=== PATIENT | female | born 1945 | race Caucasian/White ===

== ENCOUNTER 2023-02-21 13:26 | Outpatient (CLI) | payer MEDICARE, SELFPAY ==
[2023-02-21 14:26] LABS: Basophils Percent Auto 1.6 % (0.0-3.0); Eosinophils Percent Auto 2.2 % (0.0-7.0); Hematocrit 37.8 % (33.0-51.0); Hemoglobin* 12.7 gm/dL (12.0-16.0); Immature Granulocytes Pct Auto 0.8 %; Lymphocytes Percent Auto 33.5 % (20-44); Mean Corpuscular HGB Conc 34 gm/dL (32-36); Mean Corpuscular Hemoglobin 35 pg (26-34); Mean Corpuscular Volume 104 fL (80-100); Monocytes Percent Auto 12.1 % (0.0-11.0); Neutrophils Percent Auto 49.8 % (42.0-72.0); Platelet Count* 195 K/uL (140-440); RDW Coefficient of Variation % 14.3 % (11.5-15.5); Red Blood Count 3.63 m/uL (4.00-5.20); White Blood Count* 3.64 K/uL (4.50-11.00)
[2023-02-21 14:41] LABS: Albumin* 4.1 g/dL (3.3-5.0); Chloride* 103 mmol/L (96-114)
[2023-02-21 14:42] LABS: Sodium* 139 mmol/L (135-149)
[2023-02-21 14:44] LABS: Anion Gap 6 mEq/L (7-15); Aspartate Amino Transferase* 28 U/L (12-35); Bilirubin Total* 0.5 mg/dL (0.1-1.5); Carbon Dioxide* 30 mmol/L (20-32); Creatinine* 0.8 mg/dL (0.5-1.5); Estimated Glomerular Filt Rate 75 ml/min; Total Protein* 6.9 g/dL (6.0-8.3)
[2023-02-21 14:45] LABS: Alanine Aminotransferase* 21 U/L (4-35); Alkaline Phosphatase* 46 U/L (40-150); Blood Urea Nitrogen* 14 mg/dL (7-30); Calcium* 9.9 mg/dL (8.4-10.6); Glucose* 114 mg/dL (60-115)
[2023-02-21 15:05] LABS: Slide Review Reflex No
[2023-02-21 15:13] LABS: Vitamin D 25 Hydroxy* 48 ng/mL (30-80)
== END 2023-02-21 13:27 | disposition home or self-care (01) ==
DX: C50.911 Malignant neoplasm of unspecified site of right female breast (principal); M85.89 Other specified disorders of bone density and structure, multiple sites; M85.88 Other specified disorders of bone density and structure, other site
CPT/HCPCS: 36415; 80053; 82306; 85025

== ENCOUNTER 2023-05-20 10:39 | Outpatient (CLI) | payer MEDICARE, SELFPAY | END 2023-05-20 10:40 | disposition home or self-care (01) | LOC: NFLDREF 05-22 08:10 | PROVIDERS: Visit Provider Family Medicine | DX: R30.0 Dysuria (principal); N39.0 Urinary tract infection, site not specified | CPT/HCPCS: 87086; 87186 ==

== ENCOUNTER 2023-08-27 09:04 | Outpatient (CLI) | payer MEDICAID, SELFPAY | END 2023-08-27 09:05 | disposition home or self-care (01) | PROVIDERS: PCP Family Medicine; Visit Provider Family Medicine | DX: R30.0 Dysuria (principal) | CPT/HCPCS: 87086; 87186 ==

== ENCOUNTER 2023-08-27 12:41 | Outpatient (CLI) | payer MEDICARE, SELFPAY ==
--- NOTE | 2023-08-27 13:00 | CT_ITS ---
Patient: ANASTACIA BERG Facility:?[facility] Patient ID:?[id number] Site Patient ID:?[id number]. Site :?[id number] Study:?CT-Head WITHOUT-08/27/2023 1:01:23 PM Ordering Physician:DEE Final Report: INDICATION: Headaches. Trauma. TECHNIQUE: Non-contrast CT of the head is submitted. No comparisons. FINDINGS: The ventricles, sulci and gyri are of normal size, shape and contour. Midline structures are centrally located. No convincing evidence of intra- or extra- axial fluid collections. IMPRESSION: 1. No radiographic evidence of acute intracranial abnormalities. Please note that all CT scans at this facility use dose modulation, iterative reconstruction, and/or weight-based dosing when appropriate to reduce radiation dose to as low as reasonably achievable. Dictated by Toño Yip MD @ 08/27/2023 8:41:31 PM Signed by:?Toño Yip MD @08/27/2023 8:41:31 PM (Electronic Signature)
== END 2023-08-27 12:42 | disposition home or self-care (01) ==
PROVIDERS: PCP Family Medicine; Visit Provider Family Medicine
DX: R51.9 Headache, unspecified (principal); S09.90XA Unspecified injury of head, initial encounter; Z79.01 Long term (current) use of anticoagulants
CPT/HCPCS: 70450

== ENCOUNTER 2023-10-09 11:56 | Outpatient (CLI) | payer MEDICARE, SELFPAY ==
--- OUTSIDE RECORDS SUMMARY | 2023-10-09 11:58 | XMS_ITS | Clinical Summary ---
Author [facility] Address [address] [place] [address] Care Team Providers Care Relay Tester Helper Name Role Phone Memo Matos MD Primary Care Provider [phone] Source Comments You are receiving this document as you are listed as the primary care provider,follow-up provider, or the patient has been referred to you for consultation.This is in compliance with the Medicare and[facility] EHR Incentive Program,which states Providers who transition their patient to another setting of careor provider of care or refers their patient to another provider of care shouldprovide summary care record for each transition of care or referral. ADARTIS Allergies Active Allergy Reactions Criticality Noted Date Comments Codeine Nausea And Vomiting High 12/27/2010 Penicillins Rash 12/27/2010 Medications Medication Sig Dispensed Refills Start Date End Date Status Multiple Vitamin (MULTI-VITAMIN) tablet Take 1 Tablet by mouth. Active Acetaminophen 325 MG CAPS Take 1-2 Capsules (325-650 mg) by mouth. Active finasteride (PROPECIA) 1 MG tabletIndications: Female pattern hair loss TAKE ONE TABLET BY MOUTH ONCE DAILY 90 Tablet 3 06/17/2022 Active primidone (MYSOLINE) 50 MG tabletIndications: Essential tremor (HRC) Take 0.5-1 Tablets (25-50 mg) by mouth every morning. For tremor 90 Tablet 3 07/24/2022 Active ondansetron (ZOFRAN) 8 MG tablet Take 1 Tablet (8 mg) by mouth every 8 hours as needed. 10/11/2022 Active anastrozole (ARIMIDEX) 1 MG tablet Take 1 Tablet (1 mg) by mouth. 10/23/2022 Active loperamide (IMODIUM) 2 MG capsule Take 2 Capsules (4 mg) by mouth 4 times daily as needed. 10/31/2022 Active clindamycin (CLEOCIN T) 1 % gel Apply topically. 10/31/2022 Active acetaminophen (TYLENOL) 500 MG tablet Take 1,300 mg by mouth every 8 hours as needed. Active metoprolol succinate (TOPROL XL) 25 MG 24 hour release tablet Take 1 Tablet (25 mg) by mouth two times a day. 180 Tablet 3 01/16/2023 Active nitroglycerin (NITROSTAT) 0.4 MG sublingual tabletIndications: Other chest pain DISSOLVE 1 TABLET UNDER TONGUE NEEDED FOR CHEST PAIN. MAY REPEAT EVERY 5 MINUTES FOR A MAXIMUM OF 3 DOSES. 25 Tablet 01/20/2023 Active ELIQUIS 5 MG tabletIndications: Paroxysmal atrial fibrillation (HRC) TAKE 1 TABLET(5 MG) BY MOUTH TWICE DAILY 180 Tablet 09/12/2023 Active apixaban (ELIQUIS) 5 MG tabletIndications: Paroxysmal atrial fibrillation (HRC) Take 1 Tablet (5 mg) by mouth two times a day. 180 Tablet 06/13/2023 4 Discontinued Active Problems Problem Noted Date Diagnosed Date Adjustment disorder with depressed mood 01/31/20 23 Essential tremor 07/24/2022 Chronic right shoulder pain 05/30/2022 Greater trochanteric bursitis of left hip 2021 Biceps tendinitis of right shoulder 03/26/2022 S/P coronary artery stent placement 01/24/2022 Premature atrial complexes 01/24/2022 Paroxysmal atrial fibrillation 12/26/2021 GLORIA (generalized anxiety disorder) 12/07/2021 History of breast cancer 12/05/2021 Essential hypertension 12/05/2021 Other age-related cataract 10/31/2021 Seborrheic keratosis 10/31/2021 Recurrent breast cancer, right 01/03/2021 Tinnitus of both ears 11/13/2020 Decreased hearing of both ears 11/13/2020 Episodic paroxysmal hemicrania, not intractable 02/08/2019 Esophageal dysphagia 02/08/2019 Eczema 08/13/2018 Ductal carcinoma in situ (DCIS) of left breast 0 08/13/2018 Overview: Ductal carcinoma in situ (DCIS) of left breast 12:00 RICKEY (obstructive sleep apnea) 01/01/2018 Overview: RICKEY - did not tolerate CPAP Lower extremity edema 03/29/2015 Obesity (BMI 35.0-39.9 without comorbidity) 08/2010 CAD (coronary artery disease) 12/31/2010 Overview: -Stenting to first diagonal 12/28/2010 Female pattern hair loss 06/21/2010 Overview: 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 Therapeutic range: 2 - 3. Warfarin pill strength: 2mg. Initiation date ( AKA date when started on warfarin ): 01/01/2022. Length of treatment: Indefinite. Patient has been discontinued from anticoagulation therapy due to switching to Xarelto. Crystal Miller RN Induration of skin 11/13/2020 2 Overview: Chest Right History of [place] (myocardial infarction) 11/13/2020 10/31/2021 Impingement syndrome, shoulder, left 05/16/2019 10/31/2021 Chronic left shoulder pain 05/14/2019 0 10/31/2021 Malignant neoplasm of upper- outer quadrant of right breast in female, estrogen receptor positive 06/20/2017 02/08/2019 Overview: Right Breast CA, invasive ductal (IDC), grade III/III, mixed with DCIS (G3, solid/ cribriform), dx 06/19/2017. AJCC stage IIA (pT2 N0 M0). ER/ AL +ve (99 & 86%), HER2 IHC -ve (0+). --07/16/2017, S/p MRM, SLN, immediate flap reconstruction by Dr Taveras and Dr Cuevas. IDC 3.5 cm, LVI + (extensive), 0/1 LN, margins clear. Oncotype Dx: intermediate (24). -- Candidate for adjuvant chemo (Taxotere/ Cytoxan). -- Candidate for adjuvant Endocrine therapy (AI x 5-10 yrs). Breast mass, right 05/30/2017 8 Overview: Breast mass, right 12:00 3 cm from areolar border Symptomatic PVCs 01/10/2017 08/11/2017 Neoplasm of uncertain behavi or of skin of face 01/10/2017 07/08/2017 Overview: Neoplasm of uncertain behavior of skin of face left jaw line Palpitation 11/27/2015 08/11/2017 Pain of left breast 04/03/2015 08/11/19 18 Hoarseness 03/29/2015 12/30/2016 Angina pectoris 11/01/2013 08/11/2017 Inflamed seborrheic keratosis 09/09/2013 12/30/2016 Hypertrophic and atrophic condition of skin 09/09/2013 08/11/2017 Overview: Unspecified hypertrophic and atrophic condition of skin- Acrochordon Postmenopausal bleeding 06/24/201212/14 Seborrheic dermatitis 06/17/20122017 Dyspnea 04/18/2011 08/12/2017 Cardiac dysrhythmia 02/25/2011 08/11/19 18 Impaired fasting glucose 12/29/2010 CAD (coronary artery disease) 12/28/2010 11/01/2013 Overview: 12/28/[address] cor with angio with VICENTE to ostial D1, Plavix X 1 year, ASA lifelong Anxiety 05/04/2009 10/31/2021 Hyperlipidemia 05/04/2009 11/01/2013 Disorder of bone and cartilage 05/04/2009 08/12/2017 Overview: Osteopenia Encounters Date Type Department Care Team Description 09/12/2023 [facility] [address] [place] [id number] [place] MD Refill (ELIQUIS 5 MG tablet [Pharmacy Med Name: ELIQUIS 5MG TABLETS]) from Last 3 Months Immunizations Name Administration Dates Next Due Td (7+ yrs) 04/09/2005 Tdap 02/15/2019 Family History Medical History Relation Name Comments Heart Failure Father CRI Cancer Mother Megha stomach GIST Cancer, Breast Mother Megha Cancer Brother 1 Yunior unknown primary No Known Problems Brother 2 Kevyn No Known Problems Daughter x2 Cancer, Ovary No Family History 1 Cancer, Colon No Family History 2 Cancer, Prostate No Family History 3 Cancer, Pancreatic No Family History 4 Melanoma No Family History 5 Anesthesia Reaction Negative Family History Bleeding Disorder Negative Family History Clotting Disorder Negative Family History Relation Name Status Comments Father Mother Megha Brother 1 Yuinor Brother 2 Kevyn Alive Daughter x2 Alive No Family History 1 No Family History 2 No Family History 3 No Family History 4 No Family History 5 Social History Tobacco Use Types Packs/Day Years Used Date Smoking Tobacco: Never Smokeless Tobacco: Never Alcohol Use Standard Drinks/Week Comments No 0 (1 standard drink = 0.6 oz pur e alcohol) PHQ-2 Answer Date Recorded PHQ-2 Score 6 12/06/2021 Sex and Gender Information Value Date Recorded Sex Assigned at Not on file Gender Identity Not on file Sexual Orientation Not on file Last Filed Vital Signs Vital Sign Reading Time Taken Comments Blood Pressure 120/62 02/03/2023 8:25 AM CDT Pulse 68 02/03/2023 8:25 AM CDT Temperature 36.9 ??C (98.5 ??F) 02/03/2023 8:25 AM CD T Respiratory Rate 18 05/29/2022 10:39 AM BREAD DISTRIBUTOR Oxygen Saturation 97% 01/02/2023 8:31 AM CDT Inhaled Oxygen Concentration - - Weight 73 kg (161 lb) 02/03/2023 8:25 AM CDT Height 148 cm (4' 10.27) 12/03/2022 10:29 AM CD T Body Mass Index 33.34 12/03/2022 10:29 AM CDT Plan of Treatment Health Maintenance Due Date Last Done Comments Hep C Screening (Preventive Services) 1945 Zoster/Shingles (1 of 2) 11/17/1993 Pneumococcal 65+ Yrs (1 - PCV) 11/17/2008 COVID-19 Vaccine ( season) 2023 Influenza (#1) 2023 Medicare Annual Wellness Visit 06/16/2023 12/03/2022, 12/04/2021, 11/07/2020, Additional history exists DTaP/Tdap/Td (2 - Tdap) 02/15/2029 02/15/2019, 04/09 Colonoscopy Screening Completed Completed 12/04/2020 (Completed), 12/04/2020 (Completed), 03/22/2014 Dexa Completed 01/28/2023, 10/13/2018 HepA Aged Out No longer eligi ble based on patient's age to complete this topic HepB Aged Out No longer eligi ble based on patient's age to complete this topic Hib Aged Out No longer eligi ble based on patient's age to complete this topic IPV (Polio) Aged Out No longer eligi ble based on patient's age to complete this topic MCV4 Aged Out No longer eligi ble based on patient's age to complete this topic Procedures Procedure Name Priority Date/Time Associated Diagnosis Comments DXA BONE DENSITY SPINE/HIP Routine 10/13/2018 2:19 PM CDT At risk for bone density loss COLONOSCOPY SCREENING Routine 03/22/2014 12:00 AM CDT Colon cancer screening from Last 3 Months or Most Recently Relevant to Health Maintenance Results * DEXA Bone Density Spine/Hip (10/13/2018 2:19 PM CDT) Anatomical Region Laterality Modality Lower Extremity, Spine, Hip, L-Spine Other Narrative 10/15/2018 9:36 AM CDT DEXA BONE MINERAL DENSITY STUDY CLINICAL INDICATIONS: The patient is a 72-year-old female with Low bone density-osteopenia ??- 733.90 FINDINGS Bone mineral density study was performed using the [employer] ([id number]). The results of the study expressed as bone mineral density (BMD) are as follows and is compared to previous test dated * 02/27/16: BMD T-Score Z-Score Hip 0.729 *0.817 g/cm2 -1.1 *-1.46 ??1.0 *0.72 ?? Lumbar Spine (L1 to L4) 0.888 *0.895 g/cm2 -1.4 *-1.28 ??0.9 *-0.32 ?? DEFINITION OF TERMS AND VALUES Values according to the World Health Organization (1994): NORMAL: T-score greater than ??-1.0 LOW BONE MASS: T-score between -1.0 and -2.5 OSTEOPOROSIS: T-score -2.6 or below, OR a fragility fracture present SEVERE OSTEOPOROSIS: ??T-score -2.6 or below, WITH a fragility fracture present CONCLUSIONS: 1. Findings are consistent with Low bone mass but slightly improved since last test on 03/01/13 2. Recommend optimizing calcium and vitamin D. 3. Recheck Dexa in 2-4 years. 4. The patient has an estimated 10 year risk hip fracture of 1.4 % and an estimated 10 year risk of major fracture of 9.1% based on the WHO FRAX algorithm. MEMO MATOS MD .................... ??10/13/2018 ?? Procedure Note Memo Matos MD - 02/04/2019 DEXA BONE MINERAL DENSITY STUDY CLINICAL INDICATIONS: The patient is a 72-year-old female with Low bonedensity-osteopenia - 733.90 FINDINGS Bone mineral density study was performed using the [employer] ([id number]). The results of the study expressed as bone mineral density (BMD)are as follows and is compared to previous test dated * 02/27/16: BMD T-Score Z-Score Hip 0.729 *0.817 g/cm2 -1.1 *-1.46 1.0 *0.72 Lumbar Spine (L1 to L4) 0.888 *0.895 g/cm2 -1.4 *-1.28 0.9 *-0.32 DEFINITION OF TERMS AND VALUES Values according to the World Health Organization (1994): NORMAL: T-score greater than -1.0 LOW BONE MASS: T-score between -1.0 and -2.5 OSTEOPOROSIS: T-score -2.6 or below, OR a fragility fracture present SEVERE OSTEOPOROSIS: T-score -2.6 or below, WITH a fragility fracturepresent CONCLUSIONS: 1. Findings are consistent with Low bone mass but slightly improved sincelast test on 03/01/13 2. Recommend optimizing calcium and vitamin D. 3. Recheck Dexa in 2-4 years. 4. The patient has an estimated 10 year risk hip fracture of 1.4 % and anestimated 10 year risk of major fracture of 9.1% based on the WHO FRAXalgorithm. MEMO MATOS MD .................... 10/13/2018 Transcriptions Crystal Lizama - 06/23/2019 12:58 PM CSTNotes recorded by Crystal Lizama on 10/15/2018 at 11:19 AM CDTPatient informedCrystal Lizama CMA........10/15/2018 11:19 AM------Notes recorded by Memo Matos MD on 10/15/2018 at 9:44 AM CDTBone Density Test:CONCLUSIONS:1. Findings are consistent with Low bone mass but slightly improved since last test on . Recommend optimizing calcium and vitamin D.3. Recheck Dexa in 2-4 years.4. The patient has an estimated 10 year risk hip fracture of 1.4 % and an estimated 10 year risk of major fracture of 9.1% based on the WHO FRAX algorithm.Jose Matos MD 10/15/2018. 9:44 AM Memo Matos MD RAD DEXA from Last 3 Months or Most Recently Relevant to Health Maintenance Advance Directives * Full Code (Latest Code Status on File) Date Activated Date Inactivated Comments 12/04/2020 9:17 AM 12/04/2020 1:38 PM * Full Code Date Activated Date Inactivated Comments 02/17/2019 10:30 AM 02/16/2019 7:00 PM * Full Code Date Activated Date Inactivated Comments 02/17/2019 10:30 AM 02/17/2019 7:35 AM * Full Code Date Activated Date Inactivated Comments 04/28/2014 9:30 AM 04/27/2014 6:00 PM * Full Code Date Activated Date Inactivated Comments 04/28/2014 9:30 AM 04/28/2014 6:25 AM Care Teams Relay Tester Helper Relationship Specialty Start Date End Date Memo Matos MD [address] [place] [address] PCP - General 01/08/11
--- OUTSIDE RECORDS SUMMARY | 2023-10-09 11:59 | XMS_ITS | Clinical Summary ---
Author Name Unknown Organization [facility] Address [place], [place] [address] Care Team Providers Care Cullet Crusher And Washer Name Role Phone Brittany Acosta [facility] Unavailable [phone] Memo Matos MD Primary Care Provider [phone] Sumanth Raygoza MD Unavailable Georgina Roberts Unavailable [phone] Tamara Coleman RN Unavailable [phone] Jacy Morgan MD Unavailable [phone] Ayde Taveras MD Unavailable [phone] Jacy Overton COAGULATING BATH OPERATOR Unavailable Annabel Holt MD Unavailable [phone] Melvin Gregory Unavailable [phone] Allergies Active Allergy Reactions Criticality Noted Date Comments Codeine Nausea And Vomiting High 12/27/2010 Morphine GI Upset 10/18/2015 Penicillins Rash 12/27/2010 Medications Medication Sig Dispensed Refills Start Date End Date Status cholecalciferol (VITAMIN D) 1,000 unit capsule Take 1 capsule by mouth once daily. 0 08/25/2018 Active nitroglycerin (NITROSTAT) 0.4 mg sublingual tabletIndications :Other chest pain Place 1 tablet under the tongue every 5 minutes if needed for Chest Pain. 25 tablet 09/11/2018 Active metoprolol succinate (TOPROL XL) 25 mg Sustained-Release tabletIndications :Tachycardia,Palp itation Take 1 tablet by mouth once daily. 90 tablet 3 06/17/2019 Active omeprazole magnesium (PRILOSEC OTC ORAL) Take 1 Tablet by mouth each time if needed (takes for heart burn). Heart burn takes rarely Active Eliquis 5 mg tablet Take 5 mg by mouth two times daily. Taking 1 tablet a day 07/24/2022 Active ondansetron (ZOFRAN) 8 mg tabletIndications :Recurrent malignant neoplasm of right breast (HC) Take 1 Tablet (8 mg) by mouth every 8 hours if needed for Nausea/Vomiting. 30 Tablet 2 10/11/2022 Active anastrozole (ARIMIDEX) 1 mg tabletIndications :Recurrent malignant neoplasm of right breast (HC) Take 1 Tablet (1 mg) by mouth once daily. 90 Tablet 3 10/23/2022 Active ibuprofen (ADVIL; MOTRIN) 200 mg tablet Take 400 mg by mouth every 8 hours if needed. Active ACETAMINOPHEN EXTRA STRENGTH ORAL Take 1,300 mg by mouth every 8 hours if needed. Active loperamide (IMODIUM) 2 mg capsuleIndication s:Chemotherapy induced diarrhea Take 2 capsules (4mg) orally with 1st loose stool, then 1 capsule (2mg) with other loose stools. Max 16 mg in 24 hrs. 90 Capsule 3 10/31/2022 Active palbociclib (IBRANCE) 100 mg tabletIndications :Recurrent malignant neoplasm of right breast (HC) Take 1 tablet (100 mg) by mouth once daily. Take on days 1-21 of each 28 day cycle. 21 Tablet 2 07/30/2023 10/01/2023 Additional Information Patient taking differently:100 mg Oral DAILY,Not currently taking, Reported on 09/16/2023 Active Problems Patient Care Coordination No te Formatting of this note migh t be different from the original. HF/Structural Research Eligibility Review Date: 06/14/19 The patient did not qualify for any currently enrolling studies at the time of this review. [place]: due to breast cancer hx Problem Noted Date Diagnosed Date Esophageal dysphagia 02/08/2019 Episodic paroxysmal hemicrania, not intractable 02/08/2019 Ductal carcinoma in situ (DCIS) of left breast 1 2:00 08/13/2018 Eczema 08/13/2018 RICKEY - on CPAP? 01/01/2018 Severe obesity (BMI 35.0-39.9) with comorbidity 04/18/2011 CAD (coronary artery disease) 12/31/2010 Overview: -Stenting to first diagonal 12/28/2010 GERD (gastroesophageal reflux disease) 1 Paroxysmal supraventricular tachycardia 04/06/20 10 Anxiety 05/04/2009 Dyslipidemia Recurrent malignant neoplasm of right breast Cancer Staging:Clinical stage from 02/01/2021:Stage Unknown(rcT4, cNX, cM0, G3, ER+, WA+, HER2-) - Signed by Jacy Morgan MD on 02/01/2021 Resolved Problems Problem Noted Date Diagnosed Date Resolved Date Right Breast Cancer, stage IIA 06/20/2017 02/08/2019 Overview: Right Breast CA, invasive ductal (IDC), grade III/III, mixed with DCIS (G3, solid/ cribriform), dx 06/19/2017. AJCC stage IIA (pT2 N0 M0). ER/ WA +ve (99 & 86%), HER2 IHC -ve (0+). --07/16/2017, S/p MRM, SLN, immediate flap reconstruction by Dr Taveras and Dr Cuevas. IDC 3.5 cm, LVI + (extensive), 0/1 LN, margins clear. Oncotype Dx: intermediate (24). -- Candidate for adjuvant chemo (Taxotere/ Cytoxan). -- Candidate for adjuvant Endocrine therapy (AI x 5-10 yrs). 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 01/10/2017 07/08/2017 Symptomatic PVCs 01/10/2017 08/11/2017 Palpitation 11/27/2015 08/11/2017 Pain of left breast 04/03/2015 08/11/19 18 Hoarseness 03/29/2015 12/30/2016 Ankle edema 03/29/2015 07/08/2017 Angina pectoris 11/01/2013 08/11/2017 Unspecified hypertrophic and atrophic condition of skin- Acrochordon 09/09/2013 8 Inflamed seborrheic keratosis 09/09/2013 12/30/2016 Postmenopausal bleeding 06/24/201212/14 Seborrheic dermatitis, unspecified 06/17/2012 07/08/2017 Dyspnea 04/18/2011 08/12/2017 Cardiac dysrhythmia, unspecified 02/25/2011 08/11/2017 Impaired fasting glucose 12/29/2010 CAD (coronary artery disease) 12/28/2010 11/01/2013 Overview: 12/28/[address] cor with angio with VICENTE to ostial D1, Plavix X 1 year, ASA lifelong 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 06/21/2010 08/11/2017 Osteopenia 05/04/2009 08/12/2017 Other and unspecified hyperlipidemia 05/04/2009 11/01/2013 Overview: Hyperlipidemia Encounters Date Type Department Care Team Description 10/09/2023 11:30 AM CDT Office Visit [facility] [address] [place] [address] Pawel Jhaveri MD CV General Cardiology New 09/16/2023 10:30 AM CDT Office Visit [facility] [address] [place] [address] Annabel Holt MD Follow Up (Recurrent malignant neoplasm of right breast (HC)//) 09/16/2023 Travel 09/11/2023 8:45 AM CDT - 09/11/2023 11:59 PM CDT Hospital Encounter [facility] [address] [place] [address] Annabel Holt MD Recurrent malignant neoplasm of right breast (HC) 09/11/2023 7:36 AM CDT - 09/11/2023 8:44 AM CDT Hospital Encounter [facility] [address] [place] [address] Annabel Holt MD Recurrent malignant neoplasm of right breast (HC); Malignant neoplasm of overlapping sites of right breast in female, estrogen receptor positive (HC) 09/11/2023 Travel 08/12/2023 Telephone [facility] [address] [facility] [place] [phone] Jacy Overton, COAGULATING BATH OPERATOR Medication Management 08/11/2023 10:45 AM MACHINE SETTER AUTOMATIC Office Visit [facility] [address] [facility] [place] [address] Jacy Overton, COAGULATING BATH OPERATOR Follow Up (Recurrent malignant neoplasm of right breast (HC)//) 08/11/2023 Telephone [facility] [address] [facility] [place] [address] Jacy Overton, COAGULATING BATH OPERATOR Appointment 08/11/2023 Travel 08/06/2023 10:15 AM MACHINE SETTER AUTOMATIC Orders Only [facility] [address] [place] [address] [place] Lab 08/06/2023 Travel 07/30/2023 Orders Only [address] [place] [phone] Annabel Holt MD <No scans attached> 07/23/2023 Telephone [facility] [place] [phone] Annabel Holt MD Financial Questions/Services (Foundation application online) from Last 3 Months Immunizations Name Administration Dates Next Due Td, Preservative Free (age >= 7 Years) 5 Tdap 02/15/2019 Family History Medical History Relation Name Comments Cancer Brother Yunior unknown primary Good Health Brother Yunior 2 brothers Good Health Child 2 child Heart failure Father CRI Cancer Mother Megha stomach GIST Cancer-breast Mother Megha Cancer-colon No Family History Cancer-ovarian No Family History Cancer-pancreatic No Family History Cancer-prostate No Family History Melanoma No Family History Relation Name Status Comments Brother Yunior Child Father Mother Megha Social History Tobacco Use Types Packs/Day Years Used Date Smoking Tobacco: Never Smokeless Tobacco: Never Alcohol Use Standard Drinks/Week Comments Yes 2 (1 standard drink = 0.6 oz pur e alcohol) not often PHQ-2 Answer Date Recorded PHQ-2 Score 0 08/17/2018 Social Connections Answer Date Recorded Frequency of Communication with Friends and Fami ly Not on file 06/16/2021 Financial Resource Strain Answer Date R ecorded Difficulty of Paying Living Expenses Not on file 06/16/2021 Difficulty of Paying Living Expenses Not on file 06/16/2021 Sex and Gender Information Value Date Recorded Sex Assigned at Not on file Gender Identity Not on file Sexual Orientation Not on file Obstetrics History Para Term AB IAB SAB Ectopic Multiple Livin g Live Births 2 2 2 2 Date Outcome GA Total Labor Labor/2nd/3rd Weight Sex Delivery Anes PTL Jada A1 A5 Name Cl in Term Term Last Filed Vital Signs Vital Sign Reading Time Taken Comments Blood Pressure 121/65 09/16/2023 10:13 AM CDT Pulse 79 09/16/2023 10:13 AM CDT Temperature 36.5 ??C (97.7 ??F) 09/16/2023 10:13 AM C DT Respiratory Rate 16 09/16/2023 10:13 AM CDT Oxygen Saturation 98% 09/16/2023 10:13 AM CDT Inhaled Oxygen Concentration - - Weight 73.1 kg (161 lb 3.2 oz) 09/16/2023 10:13 AM CDT Height 152.4 cm (5') 03/24/2023 10:47 AM CDT Body Mass Index 31.48 03/24/2023 10:47 AM CDT Plan of Treatment Upcoming Encounters Date Type Department Care Team (Late st Contact Info) Description 10/27/2023 7:30 AM CDT Orders Only [address] [address] [place] 10/31/2023 11:15 AM CDT Office Visit [facility] [address] [place] [address] Jacy Overton, IRIS [address] [place] [address] 12/25/2023 7:30 AM CDT Appointment [facility] [address] [place] [address] 12/25/2023 8:00 AM CDT Appointment [facility] [address] [facility] [place] [address] 12/30/2023 11:00 AM CDT Office Visit [facility] [address] [facility] [phone] Annabel Holt MD [address] [facility] [place] [address] 01/12/2024 9:00 AM CDT Appointment [address] [place] [address] Health Maintenance Due Date Last Done Comments COVID-19 vaccine series (#1) 11/17/1950 Pneumococcal series for age 65+ (1 of 2 - PCV) 11/17/1949 Hepatitis C screening for ag e 18-79 11/17/1961 Zoster (shingles) series for age 50+ (1 of 2) 11/17/1962 Medicare Wellness for age 65+ 07/29/2019 07/28/2018 Depression screening for age 12+ 07/30/2019 07/30/2018, 07/28/2018, 01/09/2017 Influenza for age 65+ 02/15/2024 BMI (ht and wt on same day) for age 18+ 03/24/2024 03/24/2023, 11/26/2022, 10/24/2022, Additional history exists Tetanus booster 02/15/2029 02/15/2019, 04/09/2005 Tdap Completed 02/15/2019 DEXA/DXA scan for age 65+ Completed 2022, 10/13/2018, 10/13/2018, Additional history exists Medical Devices Implanted Type Area Spark Tester Device Identifier Shelf Expiration Date Model / Serial / Lot [id number] betsy Breast 500cc Natrelle Tab Mod Extra Prjctn Saline Implanted:Qty: 1 on 07/16/2017 by Serafin Cuevas MD at [facility] Explanted:at [facility] (Quantity not on file) Right: Breast [employer] - Inamed 133MX-13-[id number] # / [id number] / [id number] betsy Breast 500cc Natrelle Smooth Mod Extra W/Fourte Implanted:Qty: 1 on 01/08/2021 by Serafin Cuevas MD at [facility] Explanted:at [facility] (Quantity not on file) Right: Breast [employer] - Inamed 05/31/2024 133S-MX-13 -[id number] / [id number] / Procedures Procedure Name Priority Date/Time Associated Diagnosis Comments PET CT SKULL BASE TO MID THIGH SUBSEQUENT TREAT Routine 09/11/2023 9:26 AM CDT Recurrent malignant neoplasm of right breast (HC) Malignant neoplasm of overlapping sites of right breast in female, estrogen receptor positive (HC) CBC WITH AUTO DIFFERENTIAL Timed 09/11/2023 9:22 AM CDT Recurrent malignant neoplasm of right breast (HC) COMP METABOLIC PANEL Today 09/11/2023 9:22 AM CDT Recurrent malignant neoplasm of right breast (HC) CBC WITH AUTO DIFFERENTIAL Today 09/11/2023 9:22 AM CDT Recurrent malignant neoplasm of right breast (HC) CBC WITH AUTO DIFFERENTIAL Routine 08/06/2023 10:23 AM MACHINE SETTER AUTOMATIC Recurrent malignant neoplasm of right breast (HC) COMP METABOLIC PANEL Routine 08/06/2023 10:23 AM MACHINE SETTER AUTOMATIC Recurrent malignant neoplasm of right breast (HC) CBC WITH AUTO DIFFERENTIAL Routine 08/06/2023 10:23 AM MACHINE SETTER AUTOMATIC Recurrent malignant neoplasm of right breast (HC) XR DXA BONE DENSITY 2 SITES AXIAL Routine 01/28/2023 2:56 PM CDT Recurrent malignant neoplasm of right breast (HC) Encounter for monitoring aromatase inhibitor therapy Osteopenia of multiple sites from Last 3 Months or Most Recently Relevant to Health Maintenance Results * PET CT SKULL BASE TO MID THIGH SUBSEQUENT TREAT (09/11/2023 9:26 AM CDT) Anatomical Region Laterality Modality Positron Emissio n Tomography (PET) 09/11/2023 10:5 7 AM CDT Narrative 09/11/2023 10:57 AM CDT For Patients: ??As a result of the Cures Act, medical imaging exams and procedure reports are released immediately into your electronic medical record. ??You may view this report before your referring provider. ??If you have questions, please contact your health care provider. Indication: Breast cancer Technique: The patient was injected with 14.0 millicuries of 18F-FDG (fluorodeoxyglucose). Following the appropriate delay interval, PET imaging from the mid brain to the mid thigh was obtained in conjunction with a noncontrast CT examination for improved localization and attenuation correction. The fused volume set was reviewed utilizing 3-D reconstruction. ?? Blood glucose: 114 Comparison: PET-CT April 16, 2023 Findings: Max SUV within the liver today is 3.2, previously 3.6. PET: Head and Neck: The paired glandular structures and muscles of the neck are symmetrical. No focal area of increased uptake is identified. Thorax: Postsurgical changes of right mastectomy and right breast implant are unchanged. Stable density with low-grade avidity within the left upper outer breast with a max SUV today of 2.0, previously 1.6. Normal physiologic distribution within the cardiovascular system. No focal areas of increased uptake are noted in the lung lopez or mediastinum. Abdomen/Pelvis: No focal areas of increased uptake. Bones/soft tissues: No focal areas of increased uptake. ADDITIONAL CT findings include stable coronary artery atherosclerotic calcifications, moderate to large hiatal hernia, few stable sub 5 millimeter pulmonary nodules, small right kidney cyst, colonic diverticulosis, small fat containing umbilical hernia, and stable degenerative changes. Impression: Stable study. Dictated by Javed Limon MD @ 09/11/2023 10:57:28 AM (Electronically Signed) Procedure Note Javed Limon MD - 09/11/2023 For Patients: As a result of the Cures Act, medical imagingexams and procedure reports are released immediately into your electronicmedical record. You may view this report before your referring provider.If you have questions, please contact your health care provider. Indication: Breast cancer Technique: The patient was injected with 14.0 millicuries of 18F-FDG(fluorodeoxyglucose). Following the appropriate delay interval, PETimaging from the mid brain to the mid thigh was obtained in conjunctionwith a noncontrast CT examination for improved localization andattenuation correction. The fused volume set was reviewed utilizing 3-Dreconstruction. Blood glucose: 114 Comparison: PET-CT April 16, 2023 Findings: Max SUV within the liver today is 3.2, previously 3.6. PET: Head and Neck: The paired glandular structures and muscles of the neck are symmetrical.No focal area of increased uptake is identified. Thorax: Postsurgical changes of right mastectomy and right breast implant areunchanged. Stable density with low-grade avidity within the left upperouter breast with a max SUV today of 2.0, previously 1.6. Normalphysiologic distribution within the cardiovascular system. No focal areasof increased uptake are noted in the lung lopez or mediastinum. Abdomen/Pelvis: No focal areas of increased uptake. Bones/soft tissues: No focal areas of increased uptake. ADDITIONAL CT findings include stable coronary artery atheroscleroticcalcifications, moderate to large hiatal hernia, few stable sub 5millimeter pulmonary nodules, small right kidney cyst, colonicdiverticulosis, small fat containing umbilical hernia, and stabledegenerative changes. Impression: Stable study. Dictated by Javed Limon MD @ 09/11/2023 10:57:28 AM (Electronically Signed) Annabel Holt MD PET * (ABNORMAL) CBC WITH AUTO DIFFERENTIAL (09/11/2023 9:22 AM CDT) Only the most recent of2 resultswithin the time period is included. WHITE BLOOD COUNT 5.6 4.5 - 11.0 thou/cu mm 09/11/2023 9:26 AM [facility] RED BLOOD COUNT 4.19 4.00 - 5.20 mil/cu mm 09/11/2023 9:26 AM [facility] HEMOGLOBIN 14.3 12.0 - 16.0 g/dL 09/11/2023 9:26 AM [facility] HEMATOCRIT 42.5 33.0 - 51.0 % 09/11/2023 9:26 AM [facility] MCV 101(H) 80 - 100 fL 09/11/2023 9:26 AM [facility] MCH 34.1(H) 26.0 - 34.0 pg 09/11/2023 9:26 AM [facility] MCHC 33.6 32.0 - 36.0 g/dL 09/11/2023 9:26 AM [facility] RDW 13.8 11.5 - 15.5 % 09/11/2023 9:26 AM [facility] PLATELET COUNT 191 140 - 440 thou/cu mm 09/11/2023 9:26 AM [facility] MPV 9.9 6.5 - 11.0 fL 09/11/2023 9:26 AM [facility] % NEUT 46.0 % 09/11/2023 9:26 AM [facility] % LYMPH 33.4 % 09/11/2023 9:26 AM [facility] % MONO 13.3 % 09/11/2023 9:26 AM [facility] % EOS 5.9 % 09/11/2023 9:26 AM [facility] % BASO 1.4 % 09/11/2023 9:26 AM [facility] ABSOLUTE NEUTROPHILS 2.6 1.7 - 7.0 thou/cu mm 09/11/2023 9:26 AM [facility] ABSOLUTE LYMPHOCYTES 1.9 0.9 - 2.9 thou/cu mm 09/11/2023 9:26 AM [facility] ABSOLUTE MONOCYTES 0.7 <0.9 thou/cu mm 09/11/2023 9:26 AM [facility] ABSOLUTE EOSINOPHILS 0.3 <0.5 thou/cu mm 09/11/2023 9:26 AM [facility] ABSOLUTE BASOPHILS 0.1 <0.3 thou/cu mm 09/11/2023 9:26 AM [facility] Blood BLOOD SPECIMEN / Unknown Venipuncture / Unknown 09/11/2023 9:22 AM T 09/11/2023 9:22 AM [facility]AT[facility] - 09/11/2023 9:26 AM CDT This procedure was originally ordered at [facility]. This procedure was originally ordered at [facility]. Jacy Overton NP HEMATOLOGY [facility] [address] [place] [address] * (ABNORMAL) COMP METABOLIC PANEL (09/11/2023 9:22 AM CDT) Only the most recent of2 resultswithin the time period is included. SODIUM 141 136 - 145 mmol/L 09/11/2023 2:07 PM CDT [facility] POTASSIUM 4.4 3.5 - 5.1 mmol/L 09/11/2023 2:07 PM CDT [facility] CHLORIDE 103 98 - 107 mmol/L 09/11/2023 2:07 PM T [facility] CO2,TOTAL 28 22 - 29 mmol/L 09/11/2023 2:07 PM T [facility] ANION GAP 10 5 - 18 09/11/2023 2:07 PM T [facility] GLUCOSE 105(H) 70 - 99 mg/dL 09/11/2023 2:07 PM T [facility] CALCIUM 10.1 8.8 - 10.2 mg/dL 09/11/2023 2:07 PM T [facility] BUN 11 8 - 23 mg/dL 09/11/2023 2:07 PM T [facility] CREATININE 0.81 0.50 - 0.90 mg/dL 09/11/2023 2:07 PM T [facility] BUN/CREAT RATIO 14 10 - 20 2:07 PM T [facility] eGFR 74(L) >90 mL/min/1.7 3m2 09/11/2023 2:07 PM T [facility] Comment:As of 2021, eG FR is calculated by the CKD-EPI creatinine equation without race adjustment. ??eGFR can be influenced by muscle mass, exercise, and diet. ??The reported eGFR is an estimation only and is only applicable if the renal function is stable. ALBUMIN 4.5 4.0 - 4.9 g/dL 09/11/2023 2:07 PM CDT [facility] PROTEIN,TOTAL 7.2 6.0 - 8.0 g/dL 09/11/2023 2:07 PM CDT [facility] BILIRUBIN,TOTAL 0.5 0.0 - 1.2 mg/dL 09/11/2023 2:07 PM CDT [facility] ALK PHOSPHATASE 59 35 - 104 IU/L 09/11/2023 2:07 PM CDT [facility] ALT (SGPT) 15 10 - 35 IU/L 09/11/2023 2:07 PM CDT [facility] AST (SGOT) 24 10 - 35 IU/L 09/11/2023 2:07 PM CDT [facility] Blood BLOOD SPECIMEN / Unknown Venipuncture / Unknown 09/11/2023 9:22 AM CDT 09/11/2023 9:22 AM CDT Jacy Overton NP CHEMISTRY [facility] [address] [place] [address], * XR DXA BONE DENSITY 2 SITES AXIAL (01/28/2023 2:56 PM CDT) Anatomical Region Laterality Modality Spine, HIPS, HIPL, HIPR Computed Radiography 01/28/2023 4:07 PM CDT Impressions 01/29/2023 9:14 AM CDT Osteopenia. RECOMMENDATIONS: ??The National Osteoporosis Foundation recommends pharmacologic treatment for patients with T-scores of -2.5 or less, patients with prior history of fragility fractures, or patients with 10-year probability of greater than 3% at hips or greater than 20% of suffering major osteoporotic fractures. Recommend continued optimization of calcium and vitamin D intake through dietary means and/or supplementation and regular exercise. Federico Berry M.D. Body/Diagnostic Radiologist [email or web address] / Narrative 01/29/2023 9:14 AM CDT For Patients: Results are automatically released to your [employer]) account once available, in compliance with federal regulations. This means that you may see your results before your provider has had a chance to review them. Please allow 2-3 business days for your provider to comment on the results. XR DXA Bone Mineral Density (BMD) EXAM LOCATION: [address] [address] PATIENT NAME: Alexandra Gorman DATE OF : 1945 EXAM DATE: 01/28/2023 REQUESTING PROVIDER: Georgina Roberts PA GENDER AT : female HEIGHT: 5 feet 0 inches ?? WEIGHT: 164 pounds MENOPAUSAL STATUS: Postmenopausal ?? RACE/ETHNICITY: White ?? RISK FACTORS: Cancer Treatment and White Race CURRENT MEDICATION FOR BONE LOSS: NONE INDICATION: Screening for osteoporosis, Post-Menopause, Recurrent malignant neoplasm of right breast, Encounter for monitoring aromatase inhibitor therapy, Osteopenia of multiple sites COMPARISON DATE(S): None DXA scans are compared to prior studies for a patient only when the two (or more) studies were performed on the same scanner. It is not possible to compare data generated on one scanner to data from another because there are not standards in DXA equipment. This applies even if the two scanners are made by the same uptwist spinner. PROCEDURE: Dual-energy x-ray absorptiometry performed with routine technique. Reporting is completed in the form of a T-score. The T-score represents the standard deviation from peak bone mass based on young healthy adult. A Z-score is used for diagnosis in premenopausal women, and for men under the age of 50. FINDINGS: RESULT LUMBAR SPINE L1 - L3 BMD: 0.751 g/cm2 T-Score: - 2.4 Z-Score: + 0.1 RESULTS FEMUR Left femoral neck BMD: 0.675 g/cm2 T-Score: - 1.6 Z-Score: + 0.7 Left total hip BMD: 0.859 g/cm2 T-Score: - 0.7 Z-Score: + 1.3 Right femoral neck BMD: 0.724 g/cm2 T-Score: - 1.1 Z-Score: + 1.1 Right total hip BMD: 0.920 g/cm2 T-Score: - 0.2 Z-Score: + 1.8 WHO criteria: Normal: T-score at or above -1 SD Osteopenia: T-score between -1.1 and -2.4 SD Osteoporosis: T-score at or below -2.5 SD LEFT: FRAX RISK CALCULATION (USED FOR OSTEOPENIA ONLY): 10-year probability of major osteoporotic fracture: 13%. 10-year probability of hip fracture: 2.9%. RIGHT: FRAX RISK CALCULATION (USED FOR OSTEOPENIA ONLY): 10-year probability of major osteoporotic fracture: 11%. 10-year probability of hip fracture: 2.1%. Georgina GARCES DEXA from Last 3 Months or Most Recently Relevant to Health Maintenance Advance Directives * Full Code (Latest Code Status on File) Date Activated Date Inactivated Comments 01/08/2021 2:59 PM 01/09/2021 1:16 PM Question Answer Comments Code Status Discussion: Not Discussed * Full Code Date Activated Date Inactivated Comments 01/08/2021 2:59 PM 01/08/2021 2:59 PM Question Answer Comments Code Status Discussion: Not Discussed * Full Code Date Activated Date Inactivated Comments 02/17/2019 10:30 AM 02/17/2019 2:41 PM Question Answer Comments Code Status Discussion: Not Discussed * Full Code Date Activated Date Inactivated Comments 10/16/2018 10:44 AM 10/16/2018 6:08 PM * Full Code Date Activated Date Inactivated Comments 07/16/2017 6:41 PM 07/17/2017 8:05 PM Care Teams Cullet Crusher And Washer Relationship Specialty Start Date End Date Memo Matos MD [address] [place] [address] PCP - General Family Practice 02/08/20 Brittany Acosta, [facility] Oncology Hematology and Oncology 07/31/17 Sumanth Raygoza MD [address] [place] [address] [place] [address] Radiation Oncology 01/24/21 Georgina Roberts PA [address] [place] [address] Oncology Physician Aircraft Maintenance Supervisor 11/22/22 Tamara Coleman, RN [address] [address] Nurse Navigator - Oncology Registered Nurse 02/20/23 Jacy Morgan MD [address] [place] [address] Oncology 01/24/21 Ayde Taveras MD [address] [place] [address] [address] [place] [address] Surgery - General 04/23/18 Jacy Overton, COAGULATING BATH OPERATOR [address] [place] [address] Nurse Practitioner Hematology and Oncology 07/07/23 Annabel Holt MD [address] [place], [place] [id number] Medical Oncologist Hematology and Oncology 07/07/23 Melvin Gregory LSW [address] [place], [place] [id number] Inserter Operator Oncology 09/15/23
--- OUTSIDE RECORDS SUMMARY | 2023-10-09 11:59 | XMS_ITS | Encounter Summary ---
Author Name Unknown Organization [facility] Address [address], [place] [address] Care Team Providers Care Zipper Ironer Name Role Phone Memo Matos MD Primary Care Provider [phone] Reason for Visit * Reason Comments Refill ELIQUIS 5 MG tablet [Pharmacy Med Name: ELIQUIS 5MG TABLETS] Encounter Details Date Type Department Care Team (Late st Contact Info) Description 09/12/2023 Refill [facility] [address] [place] [address] Rosette Connor MD [address] [place], [place] [id number] Refill (ELIQUIS 5 MG tablet [Pharmacy Med Name: ELIQUIS 5MG TABLETS]) Social History Tobacco Use Types Packs/Day Years Used Date Smoking Tobacco: Never Smokeless Tobacco: Never Alcohol Use Standard Drinks/Week Comments No 0 (1 standard drink = 0.6 oz pur e alcohol) PHQ-2 Answer Date Recorded PHQ-2 Score 6 12/06/2021 Sex and Gender Information Value Date Recorded Sex Assigned at Not on file Gender Identity Not on file Sexual Orientation Not on file documented as of this encounter Nursing Notes * Nnamdi Abdi Xrwcomm - 09/12/2023 3:52 AM CDT ELIQUIS 5 MG tablet [Pharmacy Med Name: ELIQUIS 5MG TABLETS] Medication started: 12/26/2021 Last ordered by ROSETTE CONNOR (91 days ago) QTY: 180, Refills: 0, Sig: take 1 tablet (5 mg) by mouth two times a day. (changed but equivalent) -> Medication cannot be delegated. -> A qualifying visit was not found within the last 2 years. Last qualifying visit: None (A recent visit (in Family Practice with MEMO MATOS) was found) Next scheduled visit: None Health [facility] Embedded Refills, Reference: [id number], 09/12/2023 3:51:59 AM CDT, Karyn CHRISTIANSEN Refill Centralized Services - Primary Care [[id number]] ([id number]) documented in this encounter Plan of Treatment Not on file documented as of this encounter Visit Diagnoses Diagnosis Paroxysmal atrial fibrillation (HRC) Atrial fibrillation documented in this encounter Care Teams Zipper Ironer Relationship Specialty Start Date End Date Memo Matos MD [address] [place] [address] PCP - General 01/08/11 documented as of this encounter
== END 2023-10-09 11:57 | disposition home or self-care (01) ==
LOC: NFLDREF 11:57
PROVIDERS: PCP Family Medicine; Visit Provider Internal Medicine
DX: I25.10 Atherosclerotic heart disease of native coronary artery without angina pectoris (principal)
CPT/HCPCS: 80061

== ENCOUNTER 2023-12-01 08:36 | Outpatient (CLI) | payer MEDICARE, SELFPAY ==
--- OUTSIDE RECORDS SUMMARY | 2023-12-03 04:44 | XMS_ITS | Clinical Summary ---
Author Organization [facility] Address [place], [place] [address] Care Team Providers Care Teacher Of The Sight Impaired Name Role Phone Dave Brittany Croft [facility] Unavailable [phone] Memo Matos MD Primary Care Provider [phone] Sumanth Raygoza MD Unavailable Georgina Roberts Unavailable [phone] Tamara Coleman RN Unavailable Jacy Morgan MD Unavailable [phone] Ayde Taveras MD Unavailable [phone] Jacy Overton WELDER FITTER APPRENTICE Unavailable Annabel Holt MD Unavailable [phone] Melvin Gregory Unavailable [phone] Allergies Active Allergy Reactions Criticality Noted Date Comments Codeine Nausea And Vomiting High 12/27/2010 Morphine GI Upset 10/18/2015 Penicillins Rash 12/27/2010 Medications Medication Sig Dispensed Refills Start Date End Date Status cholecalciferol (VITAMIN D) 1,000 unit capsule Take 1 capsule by mouth once daily. 0 08/25/2018 Active nitroglycerin (NITROSTAT) 0.4 mg sublingual tabletIndications:Ot her chest pain Place 1 tablet under the tongue every 5 minutes if needed for Chest Pain. 25 tablet 09/11/2018 Active metoprolol succinate (TOPROL XL) 25 mg Sustained-Release tabletIndications:Ta chycardia,Palpitatio n Take 1 tablet by mouth once daily. 90 tablet 3 06/17/2019 Active omeprazole magnesium (PRILOSEC OTC ORAL) Take 1 Tablet by mouth each time if needed (takes for heart burn). Heart burn takes rarely Active Eliquis 5 mg tablet Take 5 mg by mouth two times daily. Taking 1 tablet a day 07/24/2022 Active ondansetron (ZOFRAN) 8 mg tabletIndications:Re current malignant neoplasm of right breast (HC) Take 1 Tablet (8 mg) by mouth every 8 hours if needed for Nausea/Vomiting. 30 Tablet 2 10/11/2022 Active anastrozole (ARIMIDEX) 1 mg tabletIndications:Re current malignant neoplasm of right breast (HC) Take 1 Tablet (1 mg) by mouth once daily. 90 Tablet 3 10/23/2022 Active ibuprofen (ADVIL; MOTRIN) 200 mg tablet Take 400 mg by mouth every 8 hours if needed. Active ACETAMINOPHEN EXTRA STRENGTH ORAL Take 1,300 mg by mouth every 8 hours if needed. Active loperamide (IMODIUM) 2 mg capsuleIndications:C hemotherapy induced diarrhea Take 2 capsules (4mg) orally with 1st loose stool, then 1 capsule (2mg) with other loose stools. Max 16 mg in 24 hrs. 90 Capsule 3 10/31/2022 Active Active Problems Patient Care Coordination No te [...] from 02/01/2021:Stage Unknown(rcT4, cNX, cM0, G3, ER+, LA+, HER2-) - Signed by Jacy Morgan MD on 02/01/2021 Resolved Problems Problem Noted Date Diagnosed Date Resolved Date Right Breast Cancer, stage IIA 06/20/2017 02/08/2019 Overview: Right Breast CA, invasive ductal (IDC), grade III/III, mixed with DCIS (G3, solid/ cribriform), dx 06/19/2017. AJCC stage IIA (pT2 N0 M0). ER/ LA +ve (99 & 86%), HER2 IHC -ve [...] Encounters Date Type Department Care Team Description 11/04/2023 Telephone [facility] [address] [facility] [address] [place] [address] Pawel Jhaveri MD PLAN 11/03/2023 10:30 AM CDT Ancillary Procedure [address] [facility] [place] [address] 11/03/2023 Oncology Nurse Navigator Task [facility] [address] [place] [address] Tamara Coleman RN 11/03/2023 Travel 10/31/2023 11:15 AM CDT Office Visit [address] [address] Jacy Overton, WELDER FITTER APPRENTICE Follow Up (Recurrent malignant neoplasm of right breast (HC)//) 10/31/2023 Oncology Nurse Navigator Task [facility] [address] [place] [address] Tamara Coleman RN 10/31/2023 Travel 10/30/2023 Telephone [facility] [address] [place] [address] Pawel Jhaveri MD Results 10/29/2023 Orders Only [facility] [address] [place] [address] Pawel Jhaveri MD 1 scan: (1-Ord) MULUGETAO FINAL REPORT 10/27/2023 7:30 AM CDT Orders Only [facility] [address] [place] [address] Lab, [place] Lab 10/27/2023 Travel 10/09/2023 11:30 AM CDT Office Visit [facility] [address] [facility] [place] [address] Pawel Jhaveri MD CV General Cardiology New 10/09/2023 Orders Only [facility] Scanner 1 scan: (1-Ord) [place], MULTIPLE RESULTS, 10/09/2023 10/09/2023 Telephone [facility] [address] [facility] [address] [place] [address] Pawel Jhaveri MD notification 09/16/2023 10:30 AM CDT Office Visit [facility] [address] [place] [address] Annabel Holt MD Follow Up (Recurrent malignant neoplasm of right breast (HC)//) 09/16/2023 Travel 09/11/2023 8:45 AM CDT - 09/11/2023 11:59 PM CDT Hospital Encounter [facility] [address] [place] [address] Annabel Holt MD Recurrent malignant neoplasm of right breast (HC) 09/11/2023 7:36 AM CDT - 09/11/2023 8:44 AM CDT Hospital Encounter [facility] [address] [place] [address] Annabel Holt MD Recurrent malignant neoplasm of right breast (HC); Malignant neoplasm of overlapping sites of right breast in female, estrogen receptor positive (HC) 09/11/2023 Travel from Last 3 Months Immunizations Name Administration [...] No Family History Relation Name Status Comments Brothorly Mojica Child Father Mother Megha Social History Tobacco [...] Outcome GA Total Labor Labor/2nd/3rd Weight Sex Type Anes PTL Jada A1 A5 Name Clin Term Term Last Filed Vital Signs Vital Sign Reading Time Taken Comments Blood Pressure 162/78 10/31/2023 11:13 AM CDT Pulse 69 10/31/2023 11:08 AM CDT Temperature 36.4 ??C (97.6 ??F) 10/31/2023 1 1:08 AM CDT Respiratory Rate 16 10/31/2023 11:0 8 AM CDT Oxygen Saturation 95% 10/31/2023 11: 08 AM CDT Inhaled Oxygen Concentration - - Weight 73.8 kg (162 lb 12.8 oz) 024 11:08 AM CDT Height 152.4 cm (5') 03/24/2023 10:47 AM CDT Body Mass Index 31.79 03/24/2023 10:47 AM CDT Plan of Treatment Upcoming Encounters Date Type Department Care Team (Late st Contact Info) Description 12/16/2023 9:00 AM CDT Office Visit [address] [place] [address] Pawel Jhaveri MD [address] [facility] [address] [place] [address] 12/25/2023 7:30 AM CDT Appointment [facility] [address] [place] [address] 12/25/2023 8:00 AM CDT Appointment [facility] [address] [place] [address] 12/30/2023 11:00 AM CDT Office Visit [facility] [address] [place] [address] Annabel Holt MD [address] [place] [address] 01/14/2024 10:00 AM CDT Appointment [address] [place] [address] 01/14/2024 10:30 AM CDT Office Visit [address] [place] [address] Magdalena Cornelius PA [address] [facility] [address] [place] [address] Health Maintenance Due Date Last Done Comments COVID-19 vaccine series (#1) 11/17/1950 Pneumococcal series for age 65+ (1 of 2 - PCV) 11/17/1949 Zoster (shingles) series for age 50+ (1 [...] history exists Medical Devices Implanted Type Area Mineral Technologist Device Identifier Shelf Expiration Date Model / Serial / Lot [id number] betsy Breast 500cc Natrelle Tab Mod Extra Prjctn Saline Implanted:Qty: 1 on 07/16/2017 by Serafin Cuevas MD at Explanted:at (Quantity not on file) Right: Breast [employer] [place] 133MX-13-T # / [id number] / [id number] betsy Breast 500cc Natrelle Smooth Mod Extra W/Fourte Implanted:Qty: 1 on 01/08/2021 by Serafin Cuevas MD at Explanted:at (Quantity not on file) Right: Breast [employer] 05/31/2024 133S-MX-13 -T / [id number] / Procedures Procedure Name Priority Date/Time Associated Diagnosis Comments CT CARDIAC CORONARY ARTERIES DUAL READ Routine 11/03/2023 11:31 AM CDT 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) S/P coronary artery stent placement Chest pain, unspecified type EXTENDED HOLTER Routine 10/29/2023 Chronic atrial fibrillation (HC) CBC WITH AUTO DIFFERENTIAL Routine 10/27/2023 7:33 AM CDT Recurrent malignant neoplasm of right breast (HC) Malignant neoplasm of overlapping sites of right breast in female, estrogen receptor positive (HC) CA 15-3 Routine 10/27/2023 7:33 AM CDT Recurrent malignant neoplasm of right breast (HC) Malignant neoplasm of overlapping sites of right breast in female, estrogen receptor positive (HC) COMP METABOLIC PANEL Routine 10/27/2023 7:33 AM CDT Recurrent malignant neoplasm of right breast (HC) Malignant neoplasm of overlapping sites of right breast in female, estrogen receptor positive (HC) CBC WITH AUTO DIFFERENTIAL Routine 10/27/2023 7:33 AM CDT Recurrent malignant neoplasm of right breast (HC) Malignant neoplasm of overlapping sites of right breast in female, estrogen receptor positive (HC) SCAN-LABORATORY REPORT 10/09/2023 12:[address] SKULL BASE TO MID THIGH [...] Recently Relevant to Health Maintenance Results * CT CARDIAC CORONARY ARTERIES DUAL READ (11/03/2023 11:31 AM CDT) Anatomical Region Laterality Modality HEART Computed Tomogra phy 11/03/2023 11:3 1 AM CDT Impressions 11/03/2023 5:38 PM CDT 1. Please see dedicated cardiac imaging report. 2. No (additional) acute or suspicious extracardiac imaging abnormality. Extracardiac structures no change January 03, 2021 CTA. Please note that all CT scans at this facility use dose modulation, iterative reconstruction, and/or weight-based dosing when appropriate to reduce radiation dose to as low as reasonably achievable. Dictated by Jose Flynn MD @ 11/03/2023 12:54:07 PM (Electronic Signature) Narrative 11/03/2023 5:38 PM CDT ?[facility] ? Cardiac CT Report ??MRN: ? [id number] ?Name: ? ALEXANDRA GORMAN ?: ?[id number] ?Scan Date: ?Accession Number: ? [id number] ?Status: ? Final ? Electronically signed by Massimo Barrios 12:54:47 VITALS HEIGHT: 60 in ?(152 cm) WEIGHT: 160 lbs ?(73 kgs) BSA: 1.70 m^2 BMI: 31 kg/m^2 BP: 163 / 88 mmHg BASELINE HR: 53 BPM HEART RHYTHM: Normal Sinus Rhythm FINAL IMPRESSION 1. Approximate 70% stenosis of the ostial RCA. 2. Moderate in stent restenosis of the D1 stent distally . 3. Consider invasive angiography vs stress testing for further evaluation based on clinical indications. 4. No pericardial effusion. RECOMMENDATIONS: Recommend proceeding to invasive coronary angiography. STUDY QUALITY: Study quality is good. CAD-RADS: CAD-RADS Classification 4A/S (>=70% stenosis, stent). DOMINANCE: Right dominant coronary artery system. LM: The LM is normal. LAD: The proximal LAD has calcified atherosclerosis. There is a 25-49% proximal LAD stenosis. The mid LAD has calcified atherosclerosis. There is a <25% mid LAD stenosis. There is no distal LAD stenosis. D1: The first diagonal has non-calcified atherosclerosis. There is a <25% first diagonal stenosis. There is a first diagonal stent. The first diagonal stent has a 25-49% stenosis. D2: The second diagonal is normal. LCX: The proximal LCx has non-calcified atherosclerosis. There is a <25% proximal LCx stenosis. The mid LCx has partially calcified atherosclerosis. There is a <25% mid LCx stenosis. There is no distal LCx stenosis. OM1: The first obtuse marginal is too small to characterize. OM2: The second obtuse marginal is normal. RCA: The proximal RCA has partially calcified atherosclerosis. There is a >=70% proximal RCA stenosis. The mid RCA has non-calcified atherosclerosis. There is a <25% mid RCA stenosis. The distal RCA has non-calcified atherosclerosis. There is a <25% distal RCA stenosis. RIGHT PDA: The right PDA is normal. RIGHT PLB: The right posterolateral branch is normal. OTHER FINDINGS: Thoracic aorta: ??Aortic sinus maximum cusp-cusp: ??34 mm. ??Ascending aorta maximum diameters: 34 x 32 mm. ??Descending thoracic aorta maximum diameters: 23 x 22 mm. Pericardium: No effusion. Left atrium: Normal contrast opacification. Atrial septum: No evidence of shunt. Pulmonary veins: Normal anatomy. Pulmonary trunk: ??27 x 23 mm. SCAN INFO TEST TYPE: ??Coronary CT Angiography SCANNER CLOTH FINISHING RANGE OPERATOR: ??SIEMENS SCANNER MODEL: ??[employer] DOSE REDUCTION ALGORITHM: ??Prospective/[id number] PHASE UNITS: ??% START PHASE: ??65 % END PHASE: ??75 % EKG GATED: ??Yes PRE-CONTRAST: ??No POST-CONTRAST: ??Yes 3D RECONSTRUCTION: ??Yes PACEMAKER ?DEVICE: ??No GENERAL ?CONTRAST AGENT ?CONTRAST AGENT USED?: ??Yes ?TYPE: ??Omnipaque 350 ?DOSE: ??100 ml ?RATE: ??6.5 ml/s ?ROUTE: ??IV ?ARM: ??Left ?BOLUS TECHNIQUE: ??Biphasic ?ADVERSE REACTION: ??No ?SERUM CREATININE: ??0.7 mg/dL ?GFR: ??85.79 ml/min/1.73m^2 ?CREATININE DATE: ?CT CONTRAST REACTION: ??None ?MEDICATION ADMINISTERED DURING SCAN ?TYPE: ??Nitroglycerin, sublingual, B-Blockers ?NITROGLYCERIN, TOTAL DOSE: ??0.8 mg ?B-RON TYPE: ??Oral ?B-RON NAME, ORAL: ??Metoprolol tartrate ?B-BLOCKERS, ORAL DOSE: ??50 mg ?RADIATION DOSE ?DLP: ??150 ?KV: ??100 ?SETUP ?PATIENT TYPE: ??Outpatient ?REASON(S) FOR SCAN: ??Chest pain ?REFERRING PHYSICIAN: ??PAWEL JHAVERI ?TECHNOLOGIST: ??Ileana Mcclure Patient Account ?[id number] ICD10 Codes ?I25.119, Z95.5, R07.9 Report generated by [employer], a product of [employer] For Patients: As a result of the 21st Century Cures Act, medical imaging exams and procedure reports are released immediately into your electronic medical record. ??You may view this report before your referring provider. ?? If you have questions, please contact your health care provider. OVER-READ ??OVER-READ ??OVER-READ OVER-READ: DETAILED RADIOLOGY EXTRACARDIAC OVER-READ OF CARDIAC CT 11/03/2023 TECHNIQUE: ??Please see cardiology report for technical information. ??100 cc Omnipaque 350 intravenous contrast. This exam is being performed in conjunction with the services provided by the [facility] ([facility]). CLINICAL HISTORY: ??Cardiac CTA over-read. ? FINDINGS: Aorta: Normal caliber with no signs of dissection. Pulmonary arteries: No filling defects, bolus timing may somewhat limit evaluation. Mediastinum: No suspicious adenopathy. Lungs and pleural structures: Clear, no effusions. Miscellaneous: Large paraesophageal hiatal hernia. Right mastectomy with implant. Pawel Jhaveri MD CT * EXTENDED HOLTER (10/29/2023) Pawel Jhaveri MD CARDIAC SERVICES ORD * CBC WITH AUTO DIFFERENTIAL (10/27/2023 7:33 AM CDT) Only the most recent of2 resultswithin the time period is included. WHITE BLOOD COUNT 5.4 4.5 - 11.0 thou/cu mm 10/27/2023 7:36 AM CDT [facility] RED BLOOD COUNT 4.26 4.00 - 5.20 mil/cu mm 10/27/2023 7:36 AM CDT [facility] HEMOGLOBIN 14.1 12.0 - 16.0 g/dL 10/27/2023 7:36 AM CDT [facility] HEMATOCRIT 41.2 33.0 - 51.0 % 10/27/2023 7:36 AM CDT [facility] MCV 97 80 - 100 fL 10/27/2023 7:36 AM CDT [facility] MCH 33.1 26.0 - 34.0 pg 10/27/2023 7:36 AM CDT [facility] MCHC 34.2 32.0 - 36.0 g/dL 10/27/2023 7:36 AM CDT [facility] RDW 13.8 11.5 - 15.5 % 10/27/2023 7:36 AM CDT [facility] PLATELET COUNT 188 140 - 440 thou/cu mm 10/27/2023 7:36 AM CDT [facility] MPV 9.9 6.5 - 11.0 fL 10/27/2023 7:36 AM CDT [facility] % NEUT 46.1 % 10/27/2023 7:36 AM CDT [facility] % LYMPH 36.0 % 10/27/2023 7:36 AM CDT [facility] % MONO 11.2 % 10/27/2023 7:36 AM CDT [facility] % EOS 6.3 % 10/27/2023 7:36 AM CDT [facility] % BASO 0.4 % 10/27/2023 7:36 AM CDT [facility] ABSOLUTE NEUTROPHILS 2.5 1.7 - 7.0 thou/cu mm 10/27/2023 7:36 AM CDT [facility] ABSOLUTE LYMPHOCYTES 1.9 0.9 - 2.9 thou/cu mm 10/27/2023 7:36 AM CDT [facility] ABSOLUTE MONOCYTES 0.6 <0.9 thou/cu mm 10/27/2023 7:36 AM CDT [facility] ABSOLUTE EOSINOPHILS 0.3 <0.5 thou/cu mm 10/27/2023 7:36 AM CDT [facility] ABSOLUTE BASOPHILS 0.0 <0.3 thou/cu mm 10/27/2023 7:36 AM CDT [facility] Blood BLOOD SPECIMEN / Unknown Venipuncture / Unknown 10/27/2023 7:33 AM CDT 10/27/2023 7:33 AM CDT Narrative [facility] - 10/27/2023 7:36 AM CDT This procedure was originally ordered at [facility]. Annabel Holt MD HEMATOLOGY Performing Organization Address City/State/[facility] Co de Phone Number [facility] [address] [place] [address], * CA 15-3 (10/27/2023 7:33 AM CDT) CA 15-3 21.2 <26.0 U/mL 10/27/2023 3:03 PM CDT [facility] Blood BLOOD SPECIMEN / Unknown Venipuncture / Unknown 10/27/2023 7:33 AM CDT 10/27/2023 7:33 AM CDT Narrative [facility] - 10/27/2023 3:03 PM CDT The test method changed on 06/18/2022. If this test has been used for serial monitoring, rebaselining is recommended. Rebaselining consists of 2 measurements, collected 3-6 weeks apart. The [employer] Ele[employer]ys CA 15-3 assay is an electrochemiluminescence immunoassay ECLIA performed on the [employer] Ira e immunoassy analyzers. ?? Values obtained with different assay methods may be different and cannot be used interchangeably. ? Biotin supplements may cause clinically significant interference for this test assay. If interference is suspected, it is strongly recomended that biotin is discontinued for at least one week prior to retesting. Annabel Holt MD SEND OUTS [facility] [address] [place] [address], * (ABNORMAL) COMP METABOLIC PANEL (10/27/2023 7:33 AM CDT) Only the most recent of2 resultswithin the time period is included. SODIUM 141 136 - 145 mmol/L 10/27/2023 3:03 PM CDT [facility] POTASSIUM 4.2 3.5 - 5.1 mmol/L 10/27/2023 3:03 PM CDT [facility] CHLORIDE 105 98 - 107 mmol/L 10/27/2023 3:03 PM CDT [facility] CO2,TOTAL 26 22 - 29 mmol/L 10/27/2023 3:03 PM CDT [facility] ANION GAP 10 5 - 18 10/27/2023 3:03 PM CDT [facility] GLUCOSE 119(H) 70 - 99 mg/dL 10/27/2023 3:03 PM CDT [facility] CALCIUM 9.6 8.8 - 10.2 mg/dL 10/27/2023 3:03 PM CDT [facility] BUN 13 8 - 23 mg/dL 10/27/2023 3:03 PM T [facility] CREATININE 0.70 0.50 - 0.90 mg/dL 10/27/2023 3:03 PM T [facility] BUN/CREAT RATIO 19 10 - 20 3:03 PM T [facility] TRA [facility] eGFR 88(L) >90 mL/min/1.7 3m2 10/27/2023 3:03 PM T [facility] Comment:As of 2021, eG FR is calculated by the CKD-EPI creatinine equation without race adjustment. ??eGFR can be influenced by muscle mass, exercise, and diet. ??The reported eGFR is an estimation only and is only applicable if the renal function is stable. ALBUMIN 4.3 4.0 - 4.9 g/dL 10/27/2023 3:03 PM T [facility] PROTEIN,TOTAL 6.6 6.0 - 8.0 g/dL 10/27/2023 3:03 PM T [facility] BILIRUBIN,TOTAL 0.5 0.0 - 1.2 mg/dL 10/27/2023 3:03 PM T [facility] ALK PHOSPHATASE 64 35 - 104 IU/L 10/27/2023 3:03 PM T [facility] ALT (SGPT) 15 10 - 35 IU/L 10/27/2023 3:03 PM T [facility] AST (SGOT) 21 10 - 35 IU/L 10/27/2023 3:03 PM T [facility] TRA [facility] Blood BLOOD SPECIMEN / Unknown Venipuncture / Unknown 10/27/2023 7:33 AM CDT 10/27/2023 7:33 AM CDT Annabel Raimundo Holt MD CHEMISTRY [facility] [address] [place] [address], * SCAN-LABORATORY REPORT (10/09/2023 12:00 AM CDT) Scanner OTHER * PET CT SKULL BASE TO MID THIGH SUBSEQUENT TREAT (09/11/2023 9:26 AM CDT) Anatomical Region Laterality Modality Positron Emissio n Tomography (PET) 09/11/2023 10:5 7 AM CDT Narrative 09/11/2023 10:57 AM CDT For Patients: ??As a result of the Century Cures Act, medical imaging exams and procedure [...] (Electronically Signed) Annabel Holt MD PET * XR DXA BONE DENSITY 2 SITES [...] Patients: Results are automatically released to your [employer] account once available, in compliance with federal regulations. This means that you may see your results before your provider has had a chance to review them. Please allow 2-3 business days for your provider to comment on the results. XR DXA Bone Mineral Density (BMD) EXAM LOCATION: [address] [id number] PATIENT NAME: Alexandra Gorman DATE OF : [...] two scanners are made by the same wire strander. PROCEDURE: Dual-energy x-ray absorptiometry performed with routine [...] 6:41 PM 07/17/2017 8:05 PM Care Teams Teacher Of The Sight Impaired Relationship Specialty Start Date End Date Memo Matos MD [address] [place] [address] PCP - General Family Practice 02/08/20 Brittany Acosta, [facility] Oncology Hematology and Oncology 07/31/17 Sumanth Raygoza MD [address] [place], [place] [id number] Radiation Oncology 01/24/21 Georgina Roberts PA [address] [place], [place] [address] Oncology Physician Motor Vehicle Dispatcher 11/22/22 Tamara Coleman, RN [address] [place] [phone] Nurse Navigator - Oncology Registered Nurse 02/20/23 Jacy Morgan MD [address] [place], [place] [address] Oncology 01/24/21 Ayde Taveras MD [address] [place], [place] [id number] Surgery - General 04/23/18 Jacy Overton, WELDER FITTER APPRENTICE [address] [place] [address] Nurse Practitioner Hematology and Oncology 07/07/23 Annabel Holt MD [address] [place] [address] Medical Oncologist Hematology and Oncology 07/07/23 Melvin Gregory LSW [address] [place] [address] [place] [address] Mold Yard Supervisor Oncology 09/15/23
--- OUTSIDE RECORDS SUMMARY | 2023-12-03 04:44 | XMS_ITS | Clinical Summary ---
Author Organization [facility] Address [address], [place] [address] Care Team Providers Care Clip Loading Machine Feeder Name Role Phone Michaela Matos MD Primary Care Provider [phone] Source Comments You are receiving this document as you are listed as the primary care provider,follow-up provider, or the patient has been referred to you for consultation.This is in compliance with the Medicare and[facility] E[facility] Incentive [facility],which states Providers who transition their patient to another setting of careor provider of care or refers their patient to another provider of care shouldprovide summary care record for each transition of care or referral. [facility] Allergies Active Allergy Reactions Criticality Noted Date Comments Codeine Nausea And Vomiting High 12/27/2010 Penicillins Rash 12/27/2010 Medications Medication Sig Dispensed Refills Start Date End Date Status Multiple Vitamin (MULTI-VITAMIN) tablet Take 1 Tablet by mouth. Active Acetaminophen 325 MG CAPS Take 1-2 Capsules (325-650 mg) by mouth. Active finasteride (PROPECIA) 1 MG tabletIndications:Fem ave pattern hair loss TAKE ONE TABLET BY MOUTH ONCE DAILY 90 Tablet 3 06/17/2022 Active primidone (MYSOLINE) 50 MG tabletIndications:Ess ential tremor (HRC) Take 0.5-1 Tablets (25-50 mg) [...] 01/16/2023 Active nitroglycerin (NITROSTAT) 0.4 MG sublingual tabletIndications:Oth er chest pain DISSOLVE 1 TABLET UNDER TONGUE NEEDED FOR CHEST PAIN. MAY REPEAT EVERY 5 MINUTES FOR A MAXIMUM OF 3 DOSES. 25 Tablet 01/20/2023 Active ELIQUIS 5 MG tabletIndications:Par oxysmal atrial fibrillation (HRC) TAKE 1 TABLET(5 MG) BY MOUTH TWICE DAILY 180 Tablet 09/12/2023 Active Active Problems Problem Noted Date Diagnosed Date [...] 11/13/2020 2 Overview: Chest Right History of [place] (myocardial infarction) 11/13/2020 10/31/2021 Impingement syndrome, shoulder, left 05/16/2019 10/31/2021 Chronic left shoulder pain 05/14/2019 0 10/31/2021 Malignant neoplasm of upper- outer quadrant of right breast in female, estrogen receptor positive 06/20/2017 02/08/2019 Overview: Right Breast CA, invasive ductal (IDC), grade III/III, mixed with DCIS (G3, solid/ cribriform), dx 06/19/2017. AJCC stage IIA (pT2 N0 M0). ER/ CT +ve (99 & 86%), HER2 IHC -ve [...] Date Type Department Care Team Description 09/12/2023 Refill [facility] [address] [place] [phone] [place] Connor MD Refill (ELIQUIS 5 MG [...] Status Comments Father Mother Megha Brother 1 Yunior Brother 2 Kevyn Alive Daughter x2 Alive [...] T Respiratory Rate 18 05/29/2022 10:39 AM CLIENT SUPPORT COORDINATOR Oxygen Saturation 97% 01/02/2023 8:31 AM CDT Inhaled Oxygen Concentration - - Weight 73 kg (161 lb) 02/03/2023 8:25 AM CDT Height 148 cm (4' 10.27) 12/03/2022 10:29 AM CD T Body Mass Index 33.34 12/03/2022 10:29 AM CDT Plan of Treatment Health Maintenance Due Date Last Done Comments Zoster/Shingles (1 of 2) 11/17/1993 Pneumococcal 65+ Yrs (1 - PCV) 11/17/2008 COVID-19 Vaccine ( - season) 2023 Medicare Annual Wellness Visit 06/16/2023 12/03/2022, 12/04/2021, 11/07/2020, Additional history exists Influenza (Season Ended) 2024 DTaP/Tdap/Td (2 - Tdap) 02/15/2029 02/15/2019, 04/09 [...] mineral density study was performed using the [employer] Horizon Wi ([id number]/N [id number]). The results of the study expressed as [...] 9.1% based on the WHO FRAX algorithm. MICHAELA MATOS MD .................... ??10/13/2018 ?? Procedure Note Michaela Matos MD - 02/04/2019 DEXA BONE MINERAL DENSITY STUDY CLINICAL INDICATIONS: The patient is a 72-year-old female with Low bonedensity-osteopenia - 733.90 FINDINGS Bone mineral density study was performed using the [employer] Horizon Wi ([id number]). The results of the study expressed as [...] of 9.1% based on the WHO FRAXalgorithm. MICHAELA MATOS MD .................... 10/13/2018 Transcriptions Crystal Lizama - 06/23/2019 12:58 PM CSTNotes recorded by Crystal Lizama on 10/15/2018 at 11:19 AM CDTPatient informedAmborly Lizama CMA........10/15/2018 11:19 AM------Notes recorded by Michaela Matos MD on 10/15/2018 at 9:44 AM [...] FRAX algorithm.Jose Matos MD 10/15/2018. 9:44 AM Michaela Matos MD RAD DEXA from Last 3 [...] 9:30 AM 04/28/2014 6:25 AM Care Teams Clip Loading Machine Feeder Relationship Specialty Start Date End Date Michaela Matos MD [address] [place] [address] PCP - General 01/08/11
--- OUTSIDE RECORDS SUMMARY | 2023-12-03 04:44 | XMS_ITS | Encounter Summary ---
Author Organization [facility] Address [address], [place] [address] Care Team Providers Care Mid Wife Name Role Phone Memo Matos MD Primary Care Provider [phone] Reason for Visit * Reason Comments Refill ELIQUIS 5 MG tablet [Pharmacy Med Name: ELIQUIS 5MG TABLETS] Encounter Details Date Type Department Care Team (Late st Contact Info) Description 09/12/2023 Refill [facility] [address] [place] [address] Rosette Connor MD [address] [place], [place] [phone] Refill (ELIQUIS 5 MG tablet [Pharmacy Med [...] Medication started: 12/26/2021 Last ordered by ROSETTE CONONR (91 days ago) QTY: 180, Refills: 0, Sig: take 1 tablet (5 mg) by mouth two times a day. (changed but equivalent) -> Medication cannot be delegated. -> A qualifying visit was not found within the last 2 years. Last qualifying visit: None (A recent visit (in Family Practice with MEMO MATOS) was found) Next scheduled visit: None [facility] Embedded Refills, Reference: [id number], 09/12/2023 3:51:59 AM CDT, Karyn Owens Centralized Services - Primary Care [[id number]] ([id number]) documented in this encounter Plan of Treatment Not on file documented as of this encounter Visit Diagnoses Diagnosis Paroxysmal atrial fibrillation (HRC) Atrial fibrillation documented in this encounter Care Teams Mid Wife Relationship Specialty Start Date End Date Memo Matos MD [address] [address] PCP - General 01/08/11 documented as of this encounter
== END 2023-12-01 08:37 | disposition home or self-care (01) ==
LOC: NFLDREF 12-03 04:42
PROVIDERS: PCP Family Medicine; Referring Provider Family Medicine; Visit Provider Family Medicine
DX: I25.10 Atherosclerotic heart disease of native coronary artery without angina pectoris (principal); R53.83 Other fatigue; E78.5 Hyperlipidemia, unspecified; R73.03 Prediabetes; E66.9 Obesity, unspecified; I48.19 Other persistent atrial fibrillation; F41.1 Generalized anxiety disorder
CPT/HCPCS: 80053; 80061; 84443

== ENCOUNTER 2024-01-14 14:00 | Outpatient (RCR) | payer MEDICARE, SELFPAY | END 2024-04-15 15:46 | disposition home or self-care (01) | PROVIDERS: PCP Family Medicine; Visit Provider Family Medicine | DX: R26.89 Other abnormalities of gait and mobility (principal); R26.81 Unsteadiness on feet; Z51.89 Encounter for other specified aftercare | CPT/HCPCS: 97110; 97112; 97161 ==

== ENCOUNTER 2024-01-22 18:42 | Emergency (ER) | payer MEDICARE, SELFPAY ==
[2024-01-22 18:49] VITALS: BP 161/92; PULSE 59; RESP 18; TEMP 36.1; O2SAT 97; BMI 31.2
--- NOTE | 2024-01-22 18:52 | CRLHL7_ITS ---
For Patients: As a result of the Century Cures Act, medical imaging exams and procedure reports are released immediately into your electronic medical record. You may view this report before your referring provider. If you have questions, please contact your health care provider. TECHNIQUE: Multiplanar CT examination of the head was performed without the use of intravenous contrast. INDICATION: Trauma, on anticoagulation. COMPARISON: None. FINDINGS: No loss of coburn-white differentiation to suggest recent territorial infarct. No intracranial hemorrhage, abnormal extra-axial fluid collection, hydrocephalus or midline shift. The ventricles and cerebral sulci are prominent in caliber, compatible with mild generalized parenchymal volume loss. There is patchy ill-defined hypoattenuation of the periventricular white matter diffusely, nonspecific but consistent with chronic microvascular ischemic changes. Atherosclerotic calcifications of the intracranial ICA segments bilaterally. The basal cisterns are patent. Mild polypoid mucosal thickening of the paranasal sinuses. Otherwise, the paranasal sinuses and mastoid air cells remain clear. The orbits and calvarium are unremarkable. The cerebellar tonsils are normal position. IMPRESSION: 1. No intracranial hemorrhage or midline shift. No acute skull fractures. 2. Mild generalized parenchymal volume loss with chronic microvascular ischemic changes. Please note that all CT scans at this facility use dose modulation, iterative reconstruction, and/or weight-based dosing when appropriate to reduce radiation dose to as low as reasonably achievable. Dictated by Jovan Garcia MD @ 01/22/2024 7:55:35 PM (Electronically Signed)
--- NOTE | 2024-01-22 18:52 | CRLHL7_ITS ---
For Patients: As a result of the Century Cures Act, medical imaging exams and procedure reports are released immediately into your electronic medical record. You may view this report before your referring provider. If you have questions, please contact your health care provider. TECHNIQUE: Multiplanar CT examination of the cervical spine was performed without the use of intravenous contrast. INDICATION: Neck pain. Trauma. COMPARISON: None. FINDINGS: Nonspecific straightening of the normal cervical lordosis. No craniocervical dissociation. The vertebral body heights are maintained. No acute fractures or traumatic subluxation. The odontoid process is intact. Grade 1 degenerative anterolisthesis of C3 on C4, C4 on C5 and C7 on T1. Trace degenerative retrolisthesis of C5 on C6. Multilevel degenerative disc disease, severe at C4-5, C5-6 and C6-7. Multilevel facet degeneration, with degenerative auto fusion of the right C3-4 facet joint. Coarse dystrophic calcifications within the nuchal ligament. No high-grade canal stenosis at any cervical spine level. Multilevel neural foraminal stenosis from the hypertrophic degenerative changes, mild at C4-5 through C6-7. No significant prevertebral soft tissue edema. The visualized lung apices are clear. The thyroid gland is unremarkable. IMPRESSION: 1. No acute fracture or traumatic subluxation of the cervical spine. 2. Multilevel cervical spondylosis, as detailed above. Please note that all CT scans at this facility use dose modulation, iterative reconstruction, and/or weight-based dosing when appropriate to reduce radiation dose to as low as reasonably achievable. Dictated by Jovan Garcia MD @ 01/22/2024 8:04:56 PM (Electronically Signed)
--- OUTSIDE RECORDS SUMMARY | 2024-01-22 19:21 | XMS_ITS | Clinical Summary ---
Author Organization [facility] Address [address], [place] [address] Care Team Providers Care Laborer Wrecking And Salvaging Name Role Phone Michaela Matos MD Primary Care Provider Source Comments You are receiving this document as you are listed as the primary care provider,follow-up provider, or the patient has been referred to you for consultation.This is in compliance with the Medicare and[facility]centive [facility],which states Providers who transition their patient to another setting of careor provider of care or refers their patient to another provider of care shouldprovide summary care record for each transition of care or referral. [employer] [facility] Allergies Active Allergy Reactions Criticality Noted Date [...] MG) BY MOUTH TWICE DAILY 180 Tablet 12/16/2023 Active Active Problems Problem Noted Date Diagnosed [...] 11/13/2020 2 Overview: Chest Right History of [place] (myocardial infarction) 11/13/2020 10/31/2021 Impingement syndrome, shoulder, left 05/16/2019 10/31/2021 Chronic left shoulder pain 05/14/2019 0 10/31/2021 Malignant neoplasm of upper- outer quadrant of right breast in female, estrogen receptor positive 06/20/2017 02/08/2019 Overview: Right Breast CA, invasive ductal (IDC), grade III/III, mixed with DCIS (G3, solid/ cribriform), dx 06/19/2017. AJCC stage IIA (pT2 N0 M0). ER/ [place] +ve (99 & 86%), HER2 IHC -ve [...] Encounters Date Type Department Care Team Description 12/16/2023 Refill [facility] [address] [place] [phone] [place] Connor MD Refill (ELIQUIS 5 MG [...] T Respiratory Rate 18 05/29/2022 10:39 AM STATISTICAL CLERK Oxygen Saturation 97% 01/02/2023 8:31 AM CDT Inhaled Oxygen Concentration - - Weight 73 kg (161 lb) 02/03/2023 8:25 AM CDT Height 148 cm (4' 10.27) 12/03/2022 10:29 AM CD T Body Mass Index 33.34 12/03/2022 10:29 AM CDT Plan of Treatment Health Maintenance Due Date Last Done Comments Zoster/Shingles (1 of 2) 11/17/1993 Pneumococcal 65+ Yrs (1 - PCV) 11/17/2008 COVID-19 Vaccine (1 - 2022- season) 2023 Medicare Annual Wellness Visit 06/16/2023 12/03/2022, 12/04/2021, 11/07/2020, Additional history exists Influenza (#1) 2024 DTaP/Tdap/Td (2 - Tdap) 02/15/2029 02/15/2019, [...] mineral density study was performed using the [employer] Horizon Wi ([id number]). The results of the study expressed as [...] mineral density study was performed using the [employer] Horizon Wi ([id number]). The results of the study expressed as [...] 9:30 AM 04/28/2014 6:25 AM Care Teams Laborer Wrecking And Salvaging Relationship Specialty Start Date End Date Michaela Matos MD [address] [place] [address] PCP - General 01/08/11
--- OUTSIDE RECORDS SUMMARY | 2024-01-22 19:21 | XMS_ITS | Encounter Summary ---
Author Organization [facility] Address [address] [address] Care Team Providers Care Beater Lead Name Role Phone Memo Matos MD Primary Care Provider [phone] Reason for Visit * Reason Comments Refill ELIQUIS 5 MG tablet [Pharmacy Med Name: ELIQUIS 5MG TABLETS] Encounter Details Date Type Department Care Team (Late st Contact Info) Description 12/16/2023 Refill [facility] [address] [place] [address] Rosette Connor MD [address] [place], [place] [phone] Refill (ELIQUIS 5 MG tablet [Pharmacy Med [...] Nursing Notes * Nnamdi Abdi Xrwcomm - 12/16/2023 3:49 AM CDT ELIQUIS 5 MG tablet [Pharmacy Med Name: ELIQUIS 5MG TABLETS] Medication started: 12/26/2021 Last ordered by ROSETTE CONNOR (95 days ago) QTY: 180, Refills: 0, Sig: take 1 tablet(5 mg) by mouth twice daily (unchanged) -> Medication cannot be delegated. -> A qualifying visit was not found within the last 2 years. Last qualifying visit: None (A recent visit (in Family Practice with MEMO MATOS) was found) Next scheduled visit: None [facility] Embedded Refills, Reference: [id number], 12/16/2023 3:49:46 AM CDT, Karyn Owens Centralized Services - Primary Care [[id number]] ([id number]) documented in this encounter Plan of Treatment Not on file documented as of this encounter Visit Diagnoses Diagnosis Paroxysmal atrial fibrillation (HRC) Atrial fibrillation documented in this encounter Care Teams Beater Lead Relationship Specialty Start Date End Date Memo Matos MD [address] [place] [address] PCP - General 01/08/11 documented as of this encounter
--- OUTSIDE RECORDS SUMMARY | 2024-01-22 19:21 | XMS_ITS | Clinical Summary ---
Author Organization [employer] [facility] [employer] [facility] Address [place], [place] [address] Care Team Providers Care Clock Repairer Name Role Phone Sumanth Raygoza MD Unavailable [phone] Tamara Coleman RN Unavailable Ayde Taveras MD Unavailable Jacy Overton MARSHMALLOW MAKER Unavailable Annabel Holt MD Unavailable Melvin Gregory Unavailable [phone] [facility] Primary Care Provider Allergies Active Allergy Reactions Criticality Noted Date [...] for Chest Pain. 25 tablet 09/11/2018 Active anastrozole (ARIMIDEX) 1 mg tabletIndications :Recurrent malignant neoplasm of right breast (HC) Take 1 Tablet (1 mg) by mouth once daily. 90 Tablet 3 10/23/2022 Active ACETAMINOPHEN EXTRA STRENGTH ORAL Take 1,300 mg by mouth every 8 hours if needed. Active loperamide (IMODIUM) 2 mg capsuleIndication s:Chemotherapy induced diarrhea Take 2 capsules (4mg) orally with 1st loose stool, then 1 capsule (2mg) with other loose stools. Max 16 mg in 24 hrs. 90 Capsule 3 10/31/2022 Active rosuvastatin (Crestor) 20 mg tabletIndications :Coronary artery disease involving o[place] sioux coronary artery of [place] si[place] heart with angina pectoris (HC),Chest pain, unspecified type,Dyslipidemia Take 1 Tablet (20 mg) by mouth at bedtime. 90 Tablet 3 12/16/2023 Active furosemide (LASIX) 20 mg tabletIndications :Chest pain, unspecified type,Bilateral leg edema Take 1 Tablet (20 mg) by mouth once daily in the morning. 90 Tablet 3 12/16/2023 Active metoprolol succinate (Toprol XL) 50 mg sustained-release tabletIndications :Chest pain, unspecified type,Paroxysmal atrial fibrillation (HC),Palpitation Take 1 Tablet (50 mg) by mouth once daily. 90 Tablet 3 12/16/2023 Active Eliquis 5 mg tabletIndications :Paroxysmal atrial fibrillation (HC) Take 1 Tablet (5 mg) by mouth two times daily. 01/09/2024 Active Eliquis 5 mg tablet Take 5 mg by mouth once daily. Taking 1 tablet a day 07/24/2022 01/09/20 24 Discontinued ibuprofen (ADVIL; MOTRIN) 200 mg tablet Take 400 mg by mouth every 8 hours if needed. 01/09/20 24 Discontinued(*IP Discontinued) palbociclib (IBRANCE) 100 mg tabletIndications :Recurrent malignant neoplasm of right breast (HC) Take 1 tablet (100 mg) by mouth once daily. Take on days 1-21 of each 28 day cycle. 21 Tablet 2 07/30/2023 01/20/20 24 Discontinued(*Di scontinued by another clinician) HYDROCHLOROTHIAZI DE ORAL Take by mouth. 01/09/20 24 Discontinued(*Sanchez madsen states no longer taking) Active Problems Patient Care Coordination No te Formatting of this note migh t be different from the original. HF/Structural Research Eligibility Review Date: 06/14/19 The patient did not qualify for any currently enrolling studies at the time of this review. Vesalius: due to breast cancer hx Problem Noted Date Diagnosed Date Paroxysmal atrial fibrillation 01/09/2024 Esophageal dysphagia 02/08/2019 Episodic paroxysmal hemicrania, not intractable 02/08/2019 Ductal carcinoma in situ (DCIS) of left breast 1 2:00 08/13/2018 Eczema 08/13/2018 RICKEY - on CPAP? 01/01/2018 Severe obesity (BMI 35.0-39.9) with comorbidity 04/18/2011 CAD (coronary artery disease) 12/31/2010 Overview: - Stenting to first diagonal 12/28/2010 - 11/03/23 CCTA: 1. Approximate 70% stenosis of the ostial RCA. 2. Moderate in stent restenosis of the D1 stent distally . - GERD (gastroesophageal reflux disease) 1 Paroxysmal supraventricular tachycardia 04/06/20 10 Anxiety 05/04/2009 Dyslipidemia Recurrent malignant neoplasm of right breast Cancer Staging:Clinical stage from 02/01/2021:Stage Unknown(rcT4, cNX, cM0, G3, ER+, MS+, HER2-) - Signed by Jacy Morgan MD on 02/01/2021 Resolved Problems Problem Noted Date Diagnosed Date Resolved Date Right Breast Cancer, stage IIA 06/20/2017 02/08/2019 Overview: Right Breast CA, invasive ductal (IDC), grade III/III, mixed with DCIS (G3, solid/ cribriform), dx 06/19/2017. AJCC stage IIA (pT2 N0 M0). ER/ MS +ve (99 & 86%), HER2 IHC -ve [...] Encounters Date Type Department Care Team Description 01/19/2024 9:00 AM CDT Office Visit [address] [address] Annabel Holt MD Follow Up (Recurrent malignant neoplasm of right breast (HC) [C50.911]//) 01/14/2024 10:30 AM CDT Office Visit [facility] - [address] [address] Magdalena Cornelius PA Follow Up 01/14/2024 Travel 01/09/2024 8:05 AM CDT - 01/09/2024 4:00 PM CDT Hospital Encounter [facility] [address] [place] [address] Pawel Jhaveri MD Paroxysmal atrial fibrillation (HC) (Primary Dx); Cardiovascular symptoms; Coronary artery disease involving ogl[place] si[place] coronary artery of ogl[place] sioux heart with angina pectoris (HC); Encounter for other screening for malignant neoplasm of breast Discharge Disposition: Home Self Care 01/09/2024 Orders Only [address] [place] [place] [address] Georgina Roberts PA <No scans attached> 01/09/2024 Travel 01/08/2024 1:23 PM CDT - 01/08/2024 11:59 PM CDT Hospital Encounter [facility] [address] [place] [address] Annabel Holt MD Ductal carcinoma in situ (DCIS) of left breast 01/07/2024 12:42 PM CDT - 01/07/2024 11:59 PM CDT Hospital Encounter [facility] [address] [place] [address] Annabel Holt MD Ductal carcinoma in situ (DCIS) of left breast 01/07/2024 Travel 01/02/2024 Telephone [facility] [address] [facility] [place] [address] Annabel Holt MD Appointment 12/30/2023 11:00 AM CDT Office Visit [facility] [address] [facility] [place] [address] Annabel Holt MD Follow Up (Recurrent malignant neoplasm of right breast (HC)//) 12/30/2023 Travel 12/25/2023 7:09 AM CDT - 12/25/2023 11:59 PM CDT Hospital Encounter [facility] [address] [place] [address] Recurrent malignant neoplasm of right breast (HC); Coronary artery disease involving ogl[place] si[place] coronary artery of o[place] sioux heart with angina pectoris (HC); Chest pain, unspecified type; Abnormal CT scan of heart 12/25/2023 7:04 AM CDT - 12/25/2023 7:08 AM CDT Hospital Encounter [facility] [address] [place] [address] Annabel Holt MD Recurrent malignant neoplasm of right breast (HC); Malignant neoplasm of overlapping sites of right breast in female, estrogen receptor positive (HC) 12/25/2023 Travel 12/16/2023 9:00 AM CDT Office Visit [place] [address] [place] [address] Pawel Jhaveri MD CV General Cardiology Est (F/u visit. Last seen 09/2023. Recent CT and ZIO/pt states her chest still feelings funny sometimes.//PCP: Memo Matos MD/) 12/16/2023 Travel 11/04/2023 Telephone [facility] [address] [place] [address] Pawel Jhaveri MD PLAN 11/03/2023 10:30 AM CDT Ancillary Procedure [address] [place] [address] 11/03/2023 Oncology Nurse Navigator Task [facility] [address] [place] [address] Tamara Coleman RN 11/03/2023 Travel 10/31/2023 11:15 AM CDT Office Visit [facility] [address] [place] [address] Jacy Overton, IRIS Follow Up (Recurrent malignant neoplasm of right breast (HC)//) 10/31/2023 Oncology Nurse Navigator Task [facility] [address] [place] [address] Tamara Coleman RN 10/31/2023 Travel 10/30/2023 Telephone [facility] [address] [place] [address] Pawel Jhaveri MD Results 10/29/2023 Orders Only [facility] [address] [place] [address] Pawel Jhaveri MD 1 scan: (1-Ord) MULUGETAO FINAL REPORT 10/27/2023 7:30 AM CDT Orders Only [facility] [address] [place] [address] Lab, [place] Lab 10/27/2023 Travel from Last 3 Months Immunizations Name [...] Tobacco: Never Alcohol Use Standard Drinks/Week Comments Not Currently 5 (1 standard drink = 0.6 oz pur e alcohol) PHQ-2 Answer Date Recorded PHQ-2 Score 0 [...] Sign Reading Time Taken Comments Blood Pressure 144/82 01/19/2024 8:54 AM CDT Pulse 60 01/19/2024 8:49 AM CDT Temperature 36.8 ??C (98.2 ??F) 01/19/2024 8:49 AM CD T Respiratory Rate 18 01/19/2024 8:49 AM CDT Oxygen Saturation 97% 01/19/2024 8:49 AM CDT Inhaled Oxygen Concentration - - Weight 72.9 kg (160 lb 12.8 oz) 01/19/2024 8:49 AM CDT Height 152.4 cm (5') 01/14/2024 10:19 AM CDT Body Mass Index 31.4 01/14/2024 10:19 AM CDT Plan of Treatment Upcoming Encounters Date Type Department Care Team (Late st Contact Info) Description 01/23/2024 3:00 PM CDT Ancillary Procedure [facility] [address] [place] [address] 03/12/2024 10:45 AM CDT Orders Only [facility] [address] [place] [address] Lab, [place] 03/16/2024 10:45 AM CDT Office Visit [facility] [address] [place] [phone] Jacy Overton, MARSHMALLOW MAKER [address] [place] [address] Health Maintenance Due Date Last Done Comments [...] wt on same day) for age 18+ 01/13/2025 01/14/2024, 12/16/2023, 03/24/2023, Additional history exists Tetanus booster 02/15/2029 02/15/2019, 04/09/2005 Tdap Completed 02/15/2019 DEXA/DXA scan for age 65+ Completed 2022, 10/13/2018, 10/13/2018, Additional history exists Medical Devices Implanted Type Area Pressurised Container Filler Device Identifier Shelf Expiration Date Model / Serial / Lot [id number] betsy Breast 500cc Natrelle Tab Mod Extra Prjctn Saline Implanted:Qty: 1 on 07/16/2017 by Serafin Cuevas MD at [facility] Explanted:at [facility] (Quantity not on file) Right: Breast [employer] 133MX-13-T # / [id number] / [id number] betsy Breast 500cc Natrelle Smooth Mod Extra W/Fourte Implanted:Qty: 1 on 01/08/2021 by Serafin Cuevas MD at [facility] Explanted:at [facility] (Quantity not on file) Right: Breast [employer] 05/31/2024 133S-MX-13 -T / [id number] / Procedures Procedure Name Priority Date/Time Associated Diagnosis Comments XR MAMMO ATUL UNI SCREEN LEFT Routine 01/14/2024 9:57 AM CDT Encounter for other screening for malignant neoplasm of breast HCHG ACTIVATED CLOTTING TM CV Timed 01/09/2024 12:43 PM CDT HCHG ACTIVATED CLOTTING TM CV Timed 01/09/2024 12:16 PM CDT CVL CORONARY ANGIOGRAM POSS PCI Routine 01/09/2024 12:04 PM CDT Cardiovascular symptoms CBC W PLT NO DIFF NENITA 01/09/2024 8:4 7 AM CDT BASIC METABOLIC PANEL NENITA 01/09/2024 8:47 AM CDT EKG 12 LEAD NENITA 01/09/2024 8:35 AM CDT MR CHEST STERNUM WWO Routine 01/08/2024 3:10 PM CDT Ductal carcinoma in situ (DCIS) of left breast MR SHOULDER RIGHT WWO Routine 01/07/2024 1:40 PM CDT Ductal carcinoma in situ (DCIS) of left breast PET CT SKULL BASE TO MID THIGH SUBSEQUENT TREAT Routine 12/25/2023 8:50 AM CDT Recurrent malignant neoplasm of right breast (HC) Malignant neoplasm of overlapping sites of right breast in female, estrogen receptor positive (HC) CBC WITH AUTO DIFFERENTIAL Timed 12/25/2023 7:21 AM CDT Recurrent malignant neoplasm of right breast (HC) LIPID PANEL W REFLEX MEASURED LDL Today 12/25/2023 7:21 AM CDT Coronary artery disease involving o[place] si[place] coronary artery of ogl[place] sioux heart with angina pectoris (HC) Chest pain, unspecified type Abnormal CT scan of heart CA 15-3 Today 12/25/2023 7:21 AM CDT Recurrent malignant neoplasm of right breast (HC) COMP METABOLIC PANEL Today 12/25/2023 7:21 AM CDT Recurrent malignant neoplasm of right breast (HC) CBC WITH AUTO DIFFERENTIAL Today 12/25/2023 7:21 AM CDT Recurrent malignant neoplasm of right breast (HC) CT CARDIAC CORONARY ARTERIES DUAL READ Routine 11/03/2023 11:31 AM CDT Coronary artery disease involving ogl[place] sioux coronary artery of ogl[place] sioux heart with angina pectoris (HC) S/P coronary [...] breast in female, estrogen receptor positive (HC) XR DXA BONE DENSITY 2 SITES AXIAL Routine 01/28/2023 2:56 PM CDT Recurrent malignant neoplasm of right breast (HC) Encounter for monitoring aromatase inhibitor therapy Osteopenia of multiple sites from Last 3 Months or Most Recently Relevant to Health Maintenance Results * XR MAMMO ATUL UNI SCREEN LEFT (01/14/2024 9:57 AM CDT) Anatomical Region Laterality Modality BREASTS, Breast Left Left Mammography Impressions 01/14/2024 10:09 AM CDT ??There is no radiographic evidence for malignancy. ??Recommend annual mammograms. MAMMOGRAM ASSESSMENT: ??ACR 2 Benign PATIENTS: You will also receive a letter with your examination results in an easy to read format. ??If you have questions about your results, please contact your referring provider. Narrative 01/14/2024 10:09 AM CDT For Patients: As a result of the Cures Act, medical imaging exams and procedure reports are released immediately into your electronic medical record. You may view this report before your referring provider. If you have questions, please contact your health care provider. XR MAMMO ATUL UNI SCREEN LEFT [[id number]] CLINICAL HISTORY: ??This is an asymptomatic 78 y.o. patient. INDICATION FOR EXAM: Mammogram Screening. TECHNIQUE: CC & MLO views were obtained. ??This study was evaluated with the assistance of Computer-Aided Detection. Breast Tomosynthesis was used in interpretation. COMPARISON FILMS: Yes 01/06/23 ?? 01/04/22 ?? FINDINGS: ??The left breast has scattered areas of fibroglandular density. ?? No suspicious masses or microcalcifications. ??There are post surgical changes of left breast. Magdalena GARCES MAMMO * (ABNORMAL) ACTIVATED CLOTTING TIME [id number] ACT (01/09/2024 12:43 PM CDT) Only the most recent of2 resultswithin the time period is included. ACTIVATED CLOTTING TIME, POCT 266(H) 74 - 125 sec 01/10/2024 8:20 AM CDT [facility] Blood BLOOD SPECIMEN / Unknown 01/09/2024 12:43 PM CDT 01/10/2024 8:20 AM CDT Pawel Jhaveri MD [facility] [address] [place] [address], * CVL CORONARY ANGIOGRAM POSS PCI (01/09/2024 12:04 PM CDT) Anatomical Region Laterality Modality X-Ray Angiograph y, X-Ray Angiography 01/09/2024 12:0 4 PM CDT Narrative Transcriptions Pawel Jhaveri MD - 01/09/2024 1:[address] [facility] at [facility] Cardiac Catheterization Report Name: ALEXANDRA GORMAN Event Date: 01/09/2024 12:04 [employer] ID #: [id number] DINO #: [id number] Patient Class: Outpatient Diagnostic Physician: PAWEL JHAVERI [facility] Referring Physician: Date: 1945 Gender: Female Age: 78 Summary/Conclusions PRESENTATION / INDICATIONS * Abnormal CTA * CAD with PCI of D1 VASCULAR ACCESS * Using ultrasound guidance and a percutaneous technique, the right commonfemoral artery was accessed. Ultrasound was used to confirm vesselpatency, localizing needle into the lumen of the vessel. An image wassaved for the medical record. DIAGNOSTIC - CORONARY * Two vessel coronary disease in a right dominant system * Baseline iFR measured in mid LAD was 0.90 consistent with a borderlinephysiological lesion. Post adenosine FFR measured in mid LAD was 0.87consistent with a physiologically non-significant lesion. * Baseline iFR measured in 1st diagonal was 0.96 consistent with aphysiologically non-significant lesion. * Baseline iFR measured in proximal RCA was 0.96 consistent with aphysiologically non-significant lesion. DIAGNOSTIC - IVUS * Diagnostic IVUS was used to assess the proximal RCA artery. Ostial MLA5.5mm^2 SPECIAL PROCEDURES * Right femoral arteriotomy was successfully closed utilizing a closuredevice (Perclose) HEMODYNAMICS * The LVEDP is within normal limits (13mmHg) DIAGNOSTIC SUMMARY ? 50% stenosis in the Proximal LAD ? 30% stenosis in the 1st Diagonal ? 50% stenosis in the Ostial RCA LEFT VENTRICULAR FUNCTION ? LV Pressure = 145/13. INTERVENTION ? Pressure Wire to Proximal LAD ? Pressure Wire to 1st Diagonal ? IVUS and Pressure Wire to Proximal RCA RECOMMENDATIONS & PLAN * Continue Medical Rx * Optimize risk factors and medications: HDL > 50 ; LDL < 70 ;Triglycerides < 100 * Follow up with primary physician * Follow up with library media assistant Consent & [place] Protocol The risks, benefits, and alternatives of the procedure were discussed withthe patient and written informed consent was obtained. [place] protocol was followed. TIME OUT conducted just prior tostarting procedure confirmed patient identity, site/side, procedure,patient position, and availability of correct equipment and implants (ifapplicable). Staff Name Title Pawel Jhaveri Diagnostic Registered Nurse Midwife Janet Trejo CVT Scrub Rula Taylor CVT Monitor Lizbeth Feng RN Explosive Ordnance Manager real estate services administrator ? Ultrasound Guided Vascular Access ? Coronary Angiogram ? Femoral Angio for Possible Closure Device ? Coronary Ultrasound ? Coronary Fractional Flow Measurement, Addl ? Coronary Fractional Flow Measurement ? Femoral Closure Device Diagnostic Findings * Left Anterior Descending ? 50% stenosis in the Proximal LAD. ? 30% stenosis in the 1st Diagonal. * Right Coronary Artery ? 50% stenosis in the Proximal RCA. Lesion Information Lesion # Vessel Segment Lesion Length Lesion Details 3 Proximal RCA 1 1st Diagonal 2 Proximal LAD Hemodynamics State: Baseline Pressures (mmHg) Site Systolic Diastolic End Diastolic A Wave V Wave Mean AO 139 61 89 LV 145 4 13 LV 143 4 11 AO 153 72 110 Interventional Results * Left Anterior Descending ? Intervention to the Proximal LAD 50% lesion using a Pressure Wire. ? Intervention to the 1st Diagonal 30% lesion using a Pressure Wire. * Right Coronary Artery ? Intervention to the Proximal RCA 50% lesion using a IVUS and aPressure Wire. Interventional Devices Lesion # Vessel Segment Type Name Max Pressure 3 Proximal RCA IVUS CATH IVUS [place] 3 Proximal RCA Pressure Wire Wire Pressure OpSens 1 1st Diagonal Pressure Wire Wire Pressure OpSens <[id number]> 2 Proximal LAD Pressure Wire Wire Pressure OpSens <[id number]> Procedure Details Estimated Blood Loss: < 30 ml Specimen Collected: None Level of Sedation Achieved: Moderate Procedure Start: 12:04 Procedure End: 13:08 Procedure Time: 64 min Fluoroscopy Time: 16.9 min Cumulative Air Kerma: 478 mGy DAP: 4630 uGy/M2 Contrast: Omnipaque (low-osmolar), 90 ml Physiologic Data Weight: 71.8 kg BSA: 1.69 m2 Vascular Access Time Access Sheath Size 12:05 Right Femoral Artery, sheath inserted Medications Ordered and Administered Start Time Stop Time Medication Dose Units Route Ordered By Given By 12:03 Versed 1 mg IV Pawel Jhaveri Heather RN 12:03 Fentanyl 25 mcg IV Pawel Jhaveri Heather RN 12:03 Fentanyl 25 mcg IV Pawel Jhaveri Heather RN 12:04 1% Lidocaine 9 ml Subcut Pawel Jhaveri Konstantinos 12:05 Fentanyl 25 mcg IV Pawel Jhaveri Heather RN 12:05 Versed 0.5 mg IV Pawel Jhaveri Heather RN 12:10 Heparin 7000 units IV Pawel Jhaveri Heather RN 12:17 Fentanyl 50 mcg IV Pawel Jhaveri Heather RN 12:17 Versed 1 mg IV Pawel Jhaveri Heather RN 12:34 Adenosine 200 mcg IC Pawel Jhaveri Heather RN 12:35 Fentanyl 25 mcg IV Pawel Jhaveri Heather RN 12:36 Versed 0.5 mg IV Pawel Jhaveri Heather RN 12:40 Fentanyl 25 mcg IV Pawel Jhaveri Heather RN 12:49 Heparin 1000 units IV Pawel Jhaveri Heather RN 13:01 Nitroglycerin 100 mcg IC Pawel Jhaveri Konstantinos 13:06 Fentanyl 25 mcg IV Pawel Jhaveri Heather RN 13:06 Versed 0.5 mg IV Pawel Jhaveri Heather RN I personally monitored the patient?s conscious sedation during theprocedure. Conscious sedation starts with the first sedation medication dose ofFentanyl or Versed and ends when the procedure is completed, the patientis stable for recovery status, and the physician or other qualified healthcare professional providing the sedation ends personal [id number] time with the patient. The medications listed above were verbally ordered by me and read back tome as documented above. Refer to the procedure log report for additional case details. electronically signed on 01/09/2024 1:19:09 PM with status of Final Pawel Jhaveri MD [facility] [address] [place] [address] (p) [phone](f) Provider Referring CV IMAGING * CBC with Platelets no Differential (01/09/2024 8:47 AM CDT) WHITE BLOOD COUNT 5.7 4.5 - 11.0 thou/cu mm 01/09/2024 9:29 AM CDT [facility] RED BLOOD COUNT 4.37 4.00 - 5.20 mil/cu mm 01/09/2024 9:29 AM CDT [facility] HEMOGLOBIN 13.5 12.0 - 16.0 g/dL 01/09/2024 9:29 AM CDT [facility] HEMATOCRIT 41.2 33.0 - 51.0 % 01/09/2024 9:29 AM CDT [facility] MCV 94 80 - 100 fL 01/09/2024 9:29 AM CDT [facility] MCH 30.9 26.0 - 34.0 pg 01/09/2024 9:29 AM CDT [facility] MCHC 32.8 32.0 - 36.0 g/dL 01/09/2024 9:29 AM CDT [facility] RDW 14.0 11.5 - 15.5 % 01/09/2024 9:29 AM CDT [facility] PLATELET COUNT 186 140 - 440 thou/cu mm 01/09/2024 9:29 AM CDT [facility] MPV 9.8 6.5 - 11.0 fL 01/09/2024 9:29 AM CDT [facility] NRBC 0.0 % 01/09/2024 9:29 AM CDT [facility] ABS NRBC 0.0 thou /cu mm 01/09/2024 9:29 AM CDT [facility] Blood BLOOD SPECIMEN / Unknown Non-Lab Venipuncture / Unknown 01/09/2024 8:47 AM CDT 01/09/2024 8:57 AM CDT [facility] - 01/09/2024 9:29 AM CDT If not done within past 14 days. ??Nurse to release order. Pawel Jhaveri MD HEMATOLOGY [facility] [address] [place] [address], * (ABNORMAL) Basic Metabolic Panel (01/09/2024 8:47 AM CDT) SODIUM 139 136 - 145 mmol/L 01/09/2024 9:23 AM T [facility] POTASSIUM 3.7 3.5 - 5.1 mmol/L 01/09/2024 9:23 AM T [facility] CHLORIDE 105 98 - 107 mmol/L 01/09/2024 9:23 AM [facility] CO2,TOTAL 26 22 - 29 mmol/L 01/09/2024 9:23 AM [facility] ANION GAP 8 5 - 18 01/09/2024 9:23 AM T [facility] GLUCOSE 100(H) 70 - 99 mg/dL 01/09/2024 9:23 AM CDT [facility] CALCIUM 9.3 8.8 - 10.2 mg/dL 01/09/2024 9:23 AM CDT [facility] BUN 12 8 - 23 mg/dL 01/09/2024 9:23 AM CDT [facility] CREATININE 0.82 0.50 - 0.90 mg/dL 01/09/2024 9:23 AM CDT [facility] BUN/CREAT RATIO 15 10 - 20 9:23 AM CDT [facility] eGFR 72(L) >90 mL/min/1.7 3m2 01/09/2024 9:23 AM CDT [facility] Comment:As of 2021, eG FR is calculated by the CKD-EPI creatinine equation without race adjustment. ??eGFR can be influenced by muscle mass, exercise, and diet. ??The reported eGFR is an estimation only and is only applicable if the renal function is stable. Blood BLOOD SPECIMEN / Unknown Non-Lab Venipuncture / Unknown 01/09/2024 8:47 AM CDT 01/09/2024 8:57 AM CDT Pawel Jhaveri MD [facility] [address] [place] [address], * 12 Lead EKG (01/09/2024 8:35 AM CDT) Interpretation Normal sinus rhythm Left axis deviation Incomplete right bundle branch block Abnormal ECG When compared with ECG of 17-Jun-2019 11:34, Incomplete right bundle branch block is now Present BEYOND NOW Ventricular Rate 74 BPM BEYOND NOW Atrial Rate 74 BPM BEYOND NOW P-R Interval 128 ms BEYOND NOW QRS Duration 100 ms BEYOND NOW QT 404 ms BEYOND NOW QTc 448 ms BEYOND NOW P [place] 42 degrees BEYOND NOW R [place] -42 degrees BEYOND NOW T [place] 8 degrees BEYOND NOW 01/09/2024 8:35 AM CDT 01/09/2024 7:25 PM CDT Narrative BEYOND NOW - 01/09/2024 7:25 PM CDT Test Indication: PRE OP Pawel Jhaveri MD EKG ORD BEYOND NOW [place], [place] * MR CHEST STERNUM WWO (01/08/2024 3:10 PM CDT) Anatomical Region Laterality Modality CHEST Magnetic Resonan ce 01/09/2024 10:3 0 AM CDT Impressions 01/09/2024 10:30 AM CDT 1. Minimally displaced fracture of the medial right clavicle with associated bone marrow edema/enhancement and periosteal reaction. There is no associated soft tissue mass. There is some effacement of the fatty marrow at the site of fracture though that is not an unexpected finding in the setting of an acute or subacute fracture. 2. Per my review of the PET-CT, there was no metastatic lesion nor fracture on the PET-CT from 09/11/2023. Additionally, in the absence of other areas of abnormal skeletal uptake on the more recent PET-CT, a nonpathologic fracture of the medial right clavicle is somewhat more likely than pathologic fracture. 3. Nonetheless, given the partial effacement of the fatty marrow on this MRI, follow-up to confirm appropriate healing and return of normal fatty marrow is recommended as an underlying metastasis is not entirely excluded. A nonpathologic fracture would typically demonstrate significant healing within 6 weeks. Consequently, consider re-evaluation with MRI in 2 months to assess for return of normal marrow. 4. No lesion involving the sternum more left medial clavicle. Dictated by Julien Hsu MD @ 01/09/2024 10:30:51 AM (Electronically Signed) Narrative 01/09/2024 10:30 AM CDT For Patients: ??As a result of the 21st Century Cures Act, medical imaging exams and procedure reports are released immediately into your electronic medical record. ??You may view this report before your referring provider. ??If you have questions, please contact your health care provider. INDICATION: DCIS of left breast. New clavicular fracture. TECHNIQUE: Noncontrast and contrast-enhanced MRI of the sternum/anterior chest wall. Axial, sagittal and coronal T1, stir and postcontrast T1 images with fat saturation were acquired. 14 milliliters of Dotarem intravenous gadolinium was administered. COMPARISON: PET-CT from 12/25/2023. PET-CT from 09/11/2023. FINDINGS: Per my review of the recent PET-CT, the recent study from 12/25/2023 demonstrates a minimally displaced fracture of the medial right clavicle with corresponding increased FDG uptake. On the prior PET-CT from 09/11/2023, there was no fracture of the medial right clavicle nor was there abnormal FDG uptake within the medial right clavicle. The current MRI demonstrates a minimally displaced fracture of the medial right clavicle with associated bone marrow edema like signal and enhancement. There is some effacement of the fatty marrow within the medial right clavicle though such a finding is not uncommon in the setting of an acute or subacute fracture. There is associated periosteal reaction. No associated soft tissue mass. There is no sternal lesion. The medial left clavicle is intact. Note is made of mild degenerative changes of the sternoclavicular joints. A right-sided breast implant is present. Procedure Note Julien Hsu MD - 01/09/2024 For Patients: As a result of the Century Cures Act, medical imagingexams and procedure reports are released immediately into your electronicmedical record. You may view this report before your referring provider.If you have questions, please contact your health care provider. INDICATION: DCIS of left breast. New clavicular fracture. TECHNIQUE: Noncontrast and contrast-enhanced MRI of the sternum/anterior chest wall.Axial, sagittal and coronal T1, stir and postcontrast T1 images with fatsaturation were acquired. 14 milliliters of Dotarem intravenous gadoliniumwas administered. COMPARISON: PET-CT from 12/25/2023. PET-CT from 09/11/2023. FINDINGS: Per my review of the recent PET-CT, the recent study from 4demonstrates a minimally displaced fracture of the medial right claviclewith corresponding increased FDG uptake. On the prior PET-CT from09/11/2023, there was no fracture of the medial right clavicle nor wasthere abnormal FDG uptake within the medial right clavicle. The current MRI demonstrates a minimally displaced fracture of the medialright clavicle with associated bone marrow edema like signal andenhancement. There is some effacement of the fatty marrow within themedial right clavicle though such a finding is not uncommon in the settingof an acute or subacute fracture. There is associated periosteal reaction.No associated soft tissue mass. There is no sternal lesion. The medial left clavicle is intact. Note ismade of mild degenerative changes of the sternoclavicular joints. A right-sided breast implant is present. IMPRESSION: 1. Minimally displaced fracture of the medial right clavicle withassociated bone marrow edema/enhancement and periosteal reaction. There isno associated soft tissue mass. There is some effacement of the fattymarrow at the site of fracture though that is not an unexpected finding inthe setting of an acute or subacute fracture. 2. Per my review of the PET-CT, there was no metastatic lesion norfracture on the PET-CT from 09/11/2023. Additionally, in the absence ofother areas of abnormal skeletal uptake on the more recent PET-CT, anonpathologic fracture of the medial right clavicle is somewhat morelikely than pathologic fracture. 3. Nonetheless, given the partial effacement of the fatty marrow on thisMRI, follow-up to confirm appropriate healing and return of normal fattymarrow is recommended as an underlying metastasis is not entirelyexcluded. A nonpathologic fracture would typically demonstrate significanthealing within 6 weeks. Consequently, consider re-evaluation with MRI in 2months to assess for return of normal marrow. 4. No lesion involving the sternum more left medial clavicle. Dictated by Julien Hsu MD @ 01/09/2024 10:30:51 AM (Electronically Signed) Annabel Holt MD MR * MR SHOULDER RIGHT WWO (01/07/2024 1:40 PM CDT) Anatomical Region Laterality Modality SHOULDER R Magnetic Resonan ce 01/08/2024 9:52 AM CDT Impressions 01/08/2024 9:52 AM CDT 1. Marrow edema in the proximal clavicle could be related to reported history of fracture although no discrete fracture seen in the field of view. Consider MR or CT imaging of the sternoclavicular joints if there is ongoing concern. 2. Shallow marginal tearing subscapularis. Tendinopathy without significant tearing supraspinatus and infraspinatus. 3. Moderate AC DJD. 4. Minor glenohumeral chondromalacia. Mild degenerative marginal tearing and mucoid change in the labrum. 5. Likely chronic full-thickness avulsion of the biceps anchor and distal retraction of the biceps below the bicipital groove. Dictated by Sunday Bender MD @ 01/08/2024 9:52:50 AM (Electronically Signed) Narrative 01/08/2024 9:52 AM CDT For Patients: ??As a result of the Cures Act, medical imaging exams and procedure reports are released immediately into your electronic medical record. ??You may view this report before your referring provider. ??If you have questions, please contact your health care provider. INDICATION: Ductal carcinoma in situ of the left breast. New clavicular fracture. COMPARISON: 04 October 2022 MRI. TECHNIQUE: Axial T1, T2, T2 fat sat and axial T1 fat sat, coronal T2 and T2 fat-sat and PD and sagittal T1 and STIR pre contrast sequences. 15 mL neuroma IV contrast with T1 fat-sat post contrast images in all 3 planes. FINDINGS: Rotator cuff: Irregular marginal degenerative tearing in the supraspinatus and infraspinatus without high-grade partial or full-thickness tear. No atrophy or edema in the muscles. Intact teres minor normal muscle. Mildly thinned subscapularis or marginal tearing in external rotation. No atrophy of the muscle. Acromioclavicular joint and coracoacromial arch: Curved type 2 acromial undersurface. Moderate hypertrophic arthrosis AC joint. Small amount of fluid throughout the subacromial/subdeltoid bursa but without significant extension into the subcoracoid recess. High T2 and STIR marrow edema at the proximal clavicle extending proximal from the [id number]-ch-yowc. No fracture or bone lesion in the field of view. Diaphysis and distal clavicle look normal. Subcoracoid interval is patent. Biceps labral complex: Intermediate signal mucoid change slightly expands the superior labrum. Shallow marginal degenerative tearing blunts the remaining labrum. Avulsion resection of the biceps anchor with no biceps in the joint and small remnant retracted distal from the bicipital groove. Glenohumeral joint: Anatomic alignment. Heterogeneous signal and shallow grade 2 cartilage thinning in the humeral head. Physiologic fluid in the joint without capsulitis. Bones and soft tissues: No adenopathy in the axilla. No acute fracture or bone lesion in the field of view. Right breast implant include included in the field of view. Procedure Note Sunday Bender MD - 01/08/2024 For Patients: As a result of the Century Cures Act, medical imagingexams and procedure reports are released immediately into your electronicmedical record. You may view this report before your referring provider.If you have questions, please contact your health care provider. INDICATION: Ductal carcinoma in situ of the left breast. New clavicular fracture. COMPARISON: 04 October 2022 MRI. TECHNIQUE: Axial T1, T2, T2 fat sat and axial T1 fat sat, coronal T2 and T2 fat-satand PD and sagittal T1 and STIR pre contrast sequences. 15 mL neuroma IVcontrast with T1 fat-sat post contrast images in all 3 planes. FINDINGS: Rotator cuff: Irregular marginal degenerative tearing in the supraspinatusand infraspinatus without high-grade partial or full-thickness tear. Noatrophy or edema in the muscles. Intact teres minor normal muscle. Mildlythinned subscapularis or marginal tearing in external rotation. No atrophyof the muscle. Acromioclavicular joint and coracoacromial arch: Curved type 2 acromialundersurface. Moderate hypertrophic arthrosis AC joint. Small amount offluid throughout the subacromial/subdeltoid bursa but without significantextension into the subcoracoid recess. High T2 and STIR marrow edema atthe proximal clavicle extending proximal from the [id number]. Nofracture or bone lesion in the field of view. Diaphysis and distalclavicle look normal. Subcoracoid interval is patent. Biceps labral complex: Intermediate signal mucoid change slightly expandsthe superior labrum. Shallow marginal degenerative tearing blunts theremaining labrum. Avulsion resection of the biceps anchor with no bicepsin the joint and small remnant retracted distal from the bicipitalgroove. Glenohumeral joint: Anatomic alignment. Heterogeneous signal and shallowgrade 2 cartilage thinning in the humeral head. Physiologic fluid in thejoint without capsulitis. Bones and soft tissues: No adenopathy in the axilla. No acute fracture orbone lesion in the field of view. Right breast implant include included inthe field of view. IMPRESSION: 1. Marrow edema in the proximal clavicle could be related to reportedhistory of fracture although no discrete fracture seen in the field ofview. Consider MR or CT imaging of the sternoclavicular joints if there isongoing concern. 2. Shallow marginal tearing subscapularis. Tendinopathy withoutsignificant tearing supraspinatus and infraspinatus. 3. Moderate AC DJD. 4. Minor glenohumeral chondromalacia. Mild degenerative marginal tearingand mucoid change in the labrum. 5. Likely chronic full-thickness avulsion of the biceps anchor and distalretraction of the biceps below the bicipital groove. Dictated by Sunday Bender MD @ 01/08/2024 9:52:50 AM (Electronically Signed) Annabel Holt MD MR * PET CT SKULL BASE TO MID THIGH SUBSEQUENT TREAT (12/25/2023 8:50 AM CDT) Anatomical Region Laterality Modality Positron Emissio n Tomography (PET) 12/29/2023 10:4 2 AM CDT Narrative 12/29/2023 10:42 AM CDT For Patients: ??As a result of the Century Cures Act, medical imaging exams and procedure reports are released immediately into your electronic medical record. ??You may view this report before your referring provider. ??If you have questions, please contact your health care provider. PET CT SKULL TO THIGH History: Right breast cancer Technique: The patient was injected with 13.3 millicuries of 18F-FDG (fluorodeoxyglucose). Following the appropriate delay interval, PET imaging from the mid brain to the mid thigh was obtained in conjunction with a noncontrast CT examination for improved localization and attenuation correction. The fused volume set was reviewed utilizing 3-D reconstruction. ?? Blood glucose: 111 Comparison: PET-CT September 11, 2023 Findings: Max SUV within the liver today is 3.7, previously 3.2. PET: Head and Neck: The paired glandular structures and muscles of the neck are symmetrical. No focal area of increased uptake. Thorax: Right mastectomy right breast implant are unchanged. Stable postsurgical changes within the left breast. Low-grade avidity within the left upper outer breast is redemonstrated with a max SUV of 1.8, previously 2.0. Abdomen/Pelvis: No focal areas of increased uptake. Bones/soft tissues: Minimally displaced fracture within the right sternal clavicular head has a max SUV of 4.2. Underlying sclerosis within the clavicular head was not present on the prior study. ADDITIONAL CT findings include stable atherosclerotic calcifications, few unchanged pulmonary nodules, [id number] hiatal hernia, small right kidney cyst, diverticulosis, and stable degenerative changes. Impression: Minimally displaced right sternal clavicular head fracture with underlying sclerosis - pathologic versus subacute fracture. Otherwise, stable study. Dictated by Javed Limon MD @ 12/29/2023 10:42:56 AM (Electronically Signed) Procedure Note Javed Limon MD - 12/29/2023 For Patients: As a result of the Century Cures Act, medical imagingexams and procedure reports are released immediately into your electronicmedical record. You may view this report before your referring provider.If you have questions, please contact your health care provider. PET CT SKULL TO THIGH History: Right breast cancer Technique: The patient was injected with 13.3 millicuries of 18F-FDG(fluorodeoxyglucose). Following the appropriate delay interval, PETimaging from the mid brain to the mid thigh was obtained in conjunctionwith a noncontrast CT examination for improved localization andattenuation correction. The fused volume set was reviewed utilizing 3-Dreconstruction. Blood glucose: 111 Comparison: PET-CT September 11, 2023 Findings: Max SUV within the liver today is 3.7, previously 3.2. PET: Head and Neck: The paired glandular structures and muscles of the neck are symmetrical.No focal area of increased uptake. Thorax: Right mastectomy right breast implant are unchanged. Stable postsurgicalchanges within the left breast. Low-grade avidity within the left upperouter breast is redemonstrated with a max SUV of 1.8, previously 2.0. Abdomen/Pelvis: No focal areas of increased uptake. Bones/soft tissues: Minimally displaced fracture within the right sternal clavicular headhas a max SUV of 4.2. Underlying sclerosis within the clavicular head wasnot present on the prior study. ADDITIONAL CT findings include stable atherosclerotic calcifications, fewunchanged pulmonary nodules, ylwshwod-ua-ooelm hiatal hernia, small rightkidney cyst, diverticulosis, and stable degenerative changes. Impression: Minimally displaced right sternal clavicular head fracture with underlyingsclerosis - pathologic versus subacute fracture. Otherwise, stablestudy. Dictated by Javed Limon MD @ 12/29/2023 10:42:56 AM (Electronically Signed) Annabel Holt MD PET * CBC WITH AUTO DIFFERENTIAL (12/25/2023 7:21 AM CDT) Only the most recent of2 resultswithin the time period is included. WHITE BLOOD COUNT 5.4 4.5 - 11.0 thou/cu mm 12/25/2023 7:25 AM [facility] RED BLOOD COUNT 4.57 4.00 - 5.20 mil/cu mm 12/25/2023 7:25 AM [facility] HEMOGLOBIN 14.5 12.0 - 16.0 g/dL 12/25/2023 7:25 AM [facility] HEMATOCRIT 43.5 33.0 - 51.0 % 12/25/2023 7:25 AM [facility] MCV 95 80 - 100 fL 12/25/2023 7:25 AM [facility] MCH 31.7 26.0 - 34.0 pg 12/25/2023 7:25 AM [facility] MCHC 33.3 32.0 - 36.0 g/dL 12/25/2023 7:25 AM [facility] RDW 14.4 11.5 - 15.5 % 12/25/2023 7:25 AM [facility] PLATELET COUNT 164 140 - 440 thou/cu mm 12/25/2023 7:25 AM [facility] MPV 9.8 6.5 - 11.0 fL 12/25/2023 7:25 AM [facility] % NEUT 53.8 % 12/25/2023 7:25 AM [facility] % LYMPH 27.6 % 12/25/2023 7:25 AM [facility] % MONO 11.3 % 12/25/2023 7:25 AM [facility] % EOS 6.9 % 12/25/2023 7:25 AM [facility] % BASO 0.4 % 12/25/2023 7:25 AM [facility] ABSOLUTE NEUTROPHILS 2.9 1.7 - 7.0 thou/cu mm 12/25/2023 7:25 AM [facility] ABSOLUTE LYMPHOCYTES 1.5 0.9 - 2.9 thou/cu mm 12/25/2023 7:25 AM [facility] ABSOLUTE MONOCYTES 0.6 <0.9 thou/cu mm 12/25/2023 7:25 AM [facility] ABSOLUTE EOSINOPHILS 0.4 <0.5 thou/cu mm 12/25/2023 7:25 AM [facility] ABSOLUTE BASOPHILS 0.0 <0.3 thou/cu mm 12/25/2023 7:25 AM [facility] Blood BLOOD SPECIMEN / Unknown Venipuncture / Unknown 12/25/2023 7:21 AM CDT 12/25/2023 7:[address] [facility] - 12/25/2023 7:25 AM CDT This procedure was originally ordered at [facility]. This procedure was originally ordered at [facility]. Jacy Overton NP HEMATOLOGY [facility] [address] [place] [address] * LIPID PANEL W REFLEX MEASURED LDL (12/25/2023 7:21 AM CDT) CHOLESTEROL,TOTAL 198 100 - 199 mg/dL 12/25/2023 7:43 AM [facility] Comment: Cholesterol, Total Reference Ranges Desirable <200 mg/dL Borderline 200-239 mg/dL High >=240 mg/dL TRIGLYCERIDES 81 <150 mg/dL 12/25/2023 7:43 AM T [facility] HDL CHOLESTEROL 81 >40 mg/dL 7:43 AM T [facility] NON-HDL CHOLESTEROL 117 <145 mg/dl 12/25/2023 7:43 AM T [facility] CHOL/HDL RATIO 2.44 <4.50 12/25/2023 7:43 AM T [facility] LDL CHOLESTEROL 101 <=130 mg/dL 12/25/2023 7:43 AM T [facility] VLDL CHOLESTEROL 16 <=30 mg/dL 12/25/2023 7:43 AM T [facility] PROVIDER ORDERED STATUS FASTING 12/25/2023 7:43 AM T [facility] Blood BLOOD SPECIMEN / Unknown Venipuncture / Unknown 12/25/2023 7:21 AM CDT 12/25/2023 7:21 AM CDT Pawel Jhaveri MD CHEMISTRY [facility] [address] [place] [address] * CA 15-3 (12/25/2023 7:21 AM CDT) Only the most recent of2 resultswithin the time period is included. CA 15-3 18.5 <26.0 U/mL 12/25/2023 1:07 PM CDT [facility] Blood BLOOD SPECIMEN / Unknown Venipuncture / Unknown 12/25/2023 7:21 AM CDT 12/25/2023 7:21 AM CDT Narrative [facility] - 12/25/2023 1:07 PM CDT The test method changed on [...] at least one week prior to retesting. Jacy Overton NP SEND OUTS [facility] [address] [place] [address], [place] * (ABNORMAL) COMP METABOLIC PANEL (12/25/2023 7:21 AM CDT) Only the most recent of2 resultswithin the time period is included. SODIUM 141 136 - 145 mmol/L 12/25/2023 7:43 AM [facility] POTASSIUM 4.2 3.5 - 5.1 mmol/L 12/25/2023 7:43 AM [facility] CHLORIDE 105 98 - 107 mmol/L 12/25/2023 7:43 AM [facility] CO2,TOTAL 29 22 - 29 mmol/L 12/25/2023 7:43 AM [facility] ANION GAP 7 5 - 18 12/25/2023 7:43 AM [facility] GLUCOSE 121(H) 70 - 99 mg/dL 12/25/2023 7:43 AM [facility] CALCIUM 9.7 8.8 - 10.2 mg/dL 12/25/2023 7:43 AM [facility] BUN 16 8 - 23 mg/dL 12/25/2023 7:43 AM [facility] CREATININE 0.76 0.50 - 0.90 mg/dL 12/25/2023 7:43 AM [facility] BUN/CREAT RATIO 21(H) 10 - 20 7:43 AM [facility] eGFR 79(L) >90 mL/min/1.7 3m2 12/25/2023 7:43 AM [facility] Comment:As of 2021, eG FR is calculated by the CKD-EPI creatinine equation without race adjustment. ??eGFR can be influenced by muscle mass, exercise, and diet. ??The reported eGFR is an estimation only and is only applicable if the renal function is stable. ALBUMIN 4.3 4.0 - 4.9 g/dL 12/25/2023 7:43 AM [facility] PROTEIN,TOTAL 6.8 6.0 - 8.0 g/dL 12/25/2023 7:43 AM [facility] BILIRUBIN,TOTAL 0.6 0.0 - 1.2 mg/dL 12/25/2023 7:43 AM [facility] ALK PHOSPHATASE 75 35 - 104 IU/L 12/25/2023 7:43 AM [facility] ALT (SGPT) 8(L) 10 - 35 IU/L 12/25/2023 7:43 AM [facility] AST (SGOT) 18 10 - 35 IU/L 12/25/2023 7:43 AM [facility] Blood BLOOD SPECIMEN / Unknown Venipuncture / Unknown 12/25/2023 7:21 AM CDT 12/25/2023 7:21 AM CDT Jacy Overton NP CHEMISTRY [facility] [address] [place] [address] * CT CARDIAC CORONARY ARTERIES DUAL READ [...] (Electronic Signature) Narrative 11/03/2023 5:38 PM CDT ?[facility] ? Cardiac CT Report ??MRN: ? [id number] ?Name: ? ALEXANDRA GORMAN ?: ?[birth year]- ?Scan Date: ?Accession Number: ? [id number] ?Status: ? Final ? Electronically signed by [...] INFO TEST TYPE: ??Coronary CT Angiography SCANNER SECURITY CHECKER: ??SIEMENS SCANNER MODEL: ??[employer] DOSE REDUCTION ALGORITHM: ??Prospective/[id number] PHASE UNITS: ??% START PHASE: ??65 % [...] ??PAWEL JHAVERI ?TECHNOLOGIST: ??Ileana Mcclure Patient Account ?[id number] ICD10 Codes ?I25.119, Z95.5, R07.9 Report generated by [employer], a product of [employer] For [...] conjunction with the services provided by the [facility] ([facility]). CLINICAL HISTORY: ??Cardiac CTA over-read. ? FINDINGS: Aorta: Normal caliber with no signs of dissection. Pulmonary arteries: No filling defects, bolus timing may somewhat limit evaluation. Mediastinum: No suspicious adenopathy. Lungs and pleural structures: Clear, no effusions. Miscellaneous: Large paraesophageal hiatal hernia. Right mastectomy with implant. Pawel Jhaveri MD CT * EXTENDED HOLTER (10/29/2023) Pawel Jhaveri MD CARDIAC SERVICES ORD * XR DXA BONE DENSITY 2 SITES [...] Patients: Results are automatically released to your [employer]) account once available, in compliance with federal regulations. This means that you may see your results before your provider has had a chance to review them. Please allow 2-3 business days for your provider to comment on the results. XR DXA Bone Mineral Density (BMD) EXAM LOCATION: [facility] [address] [facility] [id number] PATIENT NAME: Alexandra Gorman DATE OF [...] two scanners are made by the same service cashier. PROCEDURE: Dual-energy x-ray absorptiometry performed with routine [...] on File) Date Activated Date Inactivated Comments 01/09/2024 10:03 AM 01/09/2024 6:30 PM Question Answer Comments Code Status Discussion: Reviewed Preferences * Full Code Date Activated Date Inactivated [...] Comments 10/16/2018 10:44 AM 10/16/2018 6:08 PM Care Teams Clock Repairer Relationship Specialty Start Date End Date [facility] [address] [place] [address] PCP - General 12/22/23 Sumanth Raygoza MD [address] [place] [address] Radiation Oncology 01/24/21 Tamara Coleman, [place] [address] [place] [id number] Nurse Navigator - Oncology Registered Nurse 02/20/23 Ayde Taveras MD [address] [place] [id number] Surgery - General 04/23/18 Jacy Overton, [employer]ER [address] [place] [id number] Nurse Practitioner Hematology and Oncology 07/07/23 Annabel Holt MD [address] [place] [address] Medical Oncologist Hematology and Oncology 07/07/23 Melvin Gregory LSW [address] [place] [address] Human Resources Officer Oncology 09/15/23
[2024-01-22] MEDS: ACETAMINOPHEN 500 MG TABLET 1000 MG PO (19:58)
--- NOTE | 2024-01-22 20:01 | ED.GENADULT ---
HPI - General Adult General Chief complaint: Head Injury/Pain Stated complaint: dizzy, hit head while tubing Time Seen by Provider: 01/22/24 18:52 Source: patient Mode of arrival: ambulatory Limitations: no limitations History of Present Illness HPI narrative: 78-year-old female coming in today complaining of dizziness and headache. Patient states that last Friday she was tubing and fell off her tube in her head on a log. She did okay Friday but started feeling lightheaded on Friday. On Friday she went to see her chiropractor and felt better after a chiropractic adjustment. However shortly afterwards the dizziness came back. She describes it as feeling off balance. She states that she went back to the chiropractor today and it did not help her like it did on Friday. She subsequently developed a worsening headache located on the left side of the head does not radiate. She denies any vision changes. No ringing in her ears. She denies falling or needing to grasp on to something when walking, she denies deviating to 1 side. She denies the room spinning. She denies nausea or vomiting. She states that the pain radiates down the back of her left head into the left neck. She has no pain with movement of the neck. She denies difficulty concentrating or feeling foggy however today she states that she had an episode where she had word-finding difficulty on the way to the emergency room. She was able to eventually final the words but took longer than normal. She states that this has passed, she does not know how long it lasted for, likely few minutes. Patient is on Eliquis. Related Data Home Medications ?Medication ?Instructions ?Recorded ?Confirmed anastrozole 1 mg tablet 1 mg PO DAILY 05/20/23 01/22/24 nitroglycerin 0.4 mg sublingual mg sublingual 05/20/23 01/15/24 tablet apixaban 5 mg tablet (Eliquis) 5 mg PO DAILY 08/27/23 01/22/24 furosemide 20 mg tablet 20 mg PO DAILY 01/22/24 01/22/24 Previous Rx's ?Medication ?Instructions ?Recorded rosuvastatin 5 mg tablet 5 mg PO QDAY #90 tabs 12/03/23 metoprolol succinate 25 mg 25 mg PO BID #180 tabs 01/15/24 tablet,extended release 24 hr Allergies Allergy/AdvReac Type Severity Reaction Status Date / Time codeine Allergy Intermediate Vomiting Verified 01/22/24 18:49 Penicillins Allergy Mild Rash Verified 01/22/24 18:49 Review of Systems Status of ROS: Reports: 10 or more systems reviewed and unremarkable except as noted in History and below [facility] Medical History GLORIA (generalized anxiety disorder) ?F41.1 - Generalized anxiety disorder (ICD-10) Obesity ?E66.9 - Obesity, unspecified (ICD-10) Lower extremity edema ?R60.0 - Localized edema (ICD-10) History of blood clots ?Z86.718 - Personal history of other venous thrombosis and embolism (ICD-10) 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 - Other specified nonscarring hair loss (ICD-10) Diverticulosis ?K57.90 - Diverticulosis of intestine, part unspecified, without perforation or abscess without bleeding (ICD-10) Osteopenia ?M85.80 - Other specified disorders of bone density and structure, unspecified site (ICD-10) RICKEY (obstructive sleep apnea) (2014) ?G47.33 - Obstructive sleep apnea (adult) (pediatric) (ICD-10) GERD (gastroesophageal reflux disease) ?K21.9 - Gastro-esophageal reflux disease without esophagitis (ICD-10) Esophageal dysphagia ?R13.19 - Other dysphagia (ICD-10) Episodic paroxysmal hemicrania, not intractable ?G44.039 - Episodic paroxysmal hemicrania, not intractable (ICD-10) Eczema ?L30.9 - Dermatitis, unspecified (ICD-10) Hearing loss of both ears ?H91.93 - Unspecified hearing loss, bilateral (ICD-10) Chronic right shoulder pain ?M25.511 - Pain in right shoulder (ICD-10) ?G89.29 - Other chronic pain (ICD-10) Adjustment disorder with depressed mood (~06/2021) ?F43.21 - Adjustment disorder with depressed mood (ICD-10) Dyslipidemia ?E78.5 - Hyperlipidemia, unspecified (ICD-10) Head trauma (08/2023) ?S09.90XA - Unspecified injury of head, initial encounter (ICD-10) Anticoagulated ?Z79.01 - intermediate teacher (current) use of anticoagulants (ICD-10) CAD (coronary artery disease) ?I25.10 - Atherosclerotic heart disease of [place] coronary artery without angina pectoris (ICD-10) Atrial fibrillation ?I48.91 - Unspecified atrial fibrillation (ICD-10) Essential tremor ?G25.0 - Essential tremor (ICD-10) Surgical History History of coronary angiogram (01/09/24) ?Z98.890 - Other specified postprocedural states (ICD-10) History of cataract surgery (2021) ?Z98.49 - Cataract extraction status, unspecified eye (ICD-10) History of lumpectomy of both breasts ?Z98.890 - Other specified postprocedural states (ICD-10) History of coronary artery stent placement (2010) ?Z95.5 - Presence of coronary angioplasty implant and graft (ICD-10) History of right mastectomy (07/18/17) ?Z90.11 - Acquired absence of right breast and nipple (ICD-10) Family History Mother Breast cancer, Onset Age: 50 Diabetes Malignant GIST (gastrointestinal stromal tumor), Onset Age: 80 Father Diabetes Heart failure, Onset Age: 86 Brother Cancer with unknown primary site, Onset Age: 58 Social History Narrative: recently, 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, 2 adult children in [facility] Lifetime nonsmoker 5-6 glasses of wine a week No drug use Exercises 50 N 3 times a week What is your current living situation?: I presently have a place to live Problems where you live: no known problems In the past 12 months, utilities in danger of being shut off: no In past 12 months, lack of transportation kept you from medical appts, meetings, work, or getting things needed for daily living: no In the past 12 mos, have been you worried that your food would run out before you had money to buy more?: never true In the past 12 mos, the food you bought just didn't last and you didn't have money to buy more?: never true Smoking Status: Never smoker Do you use any of these nicotine containing products: None Second hand tobacco smoke exposure: No How often do you have a drink containing alcohol: never AUDIT-C Alcohol total score: 0 Non-prescribed substance use: denies use How often does anyone, including family, friends and others, physically hurt you: never How often does anyone, including family, friends and others, insult or talk down to you: never How often does anyone, including family, friends and others, threaten you with harm: never How often does anyone, including family, friends and others, scream or curse at you: never Little interest or pleasure in doing things: not at all Feeling down, depressed, or hopeless: several days service: No Exam Narrative: Exam Narrative: Well-nourished well-developed patient in no acute distress. Alert and oriented x3. Answers questions appropriately. Mood and affect are appropriate. Thoughts are goal oriented and rational. No tangential or magical thinking noted. Patient speaks in full sentences without needing to catch her breath. No facial asymmetry noted. No word-finding difficulty. Speech is not slurred or pressured. HEENT: Normocephalic atraumatic. Pupils are equally round reactive to light. Extraocular muscles are intact. Conjunctivae are moist without any icterus noted. Moist mucous membranes. Posterior pharynx is normal. Neck is soft without any lymphadenopathy or thyromegaly. No masses are appreciated. Cardiovascular: Heart is regular rate and rhythm S1 and S2 are present without any murmurs. Lungs: Clear to auscultation bilaterally no wheezes rhonchi or rales are appreciated. Patient takes deep breaths without any discomfort. Abdomen: Soft and nontender nondistended with normal bowel sounds. No guarding or rebound. No masses or organomegaly appreciated. Extremities: Bilateral lower extremities are without edema. Normal DP and PT pulses. Skin: Well perfused without any obvious rashes. Strength is 5/5 of the upper and lower extremities. Can drawer in stitch bonding machine is normal and symmetric. Reflexes are 2+ and symmetric at the knees. Cranial nerves 3-12 are normal. Zlvjof-to-nyod is normal. Idgi-xa-caby is normal. There is no nystagmus either horizontally or vertically. Does have a tremor which is not new. Her gait is normal. Const: Vital Signs, click to edit/add: Vital Signs - 24 hr 01/22/24 18:49 Temperature 96.9 F L Pulse Rate [Pulse Oximeter] 59 L Respiratory Rate 18 Blood Pressure [Le ft Upper Arm] 161/92 H Pulse Oximetry 97 Oxygen Delivery Me thod Room Air Course Course ED Course: Head and neck CT were unremarkable. Patient was given a dose of oral Tylenol. She was able to get out of bed without assistance sit in a chair and she was looking better when I went to re-evaluate her and discussed her results with her. We discussed doing that in head and neck CTA. Patient did have a chiropractic manipulation of her neck today that could be contributing to her headache. Certainly a dissection is a possibility. I discussed the severity of this diagnosis. Patient states that she does not feel like any further testing at this time is necessary. She is feeling tired and wants to go home. I discussed with her having a very low threshold to return to the ER. If her headache is not improving with her home remedies and Tylenol over the next several hours I do recommend imaging with a head and neck CTA emergently. Vital Signs Vital signs: Initial Vital Signs Temperature 96.9 F L 01/22/24 18:49 Temperature Source Temporal Artery Scan 01/22/24 18:49 Pulse Rate 59 L 01/22/24 18:49 Respiratory Rate 18 01/22/24 18:49 Blood Pressure 161/92 H 01/22/24 18:49 Blood Pressure Mean 115 H 01/22/24 18:49 Blood Pressure Position Sitting 01/22/24 18:49 Pulse Oximetry 97 01/22/24 18:49 Oxygen Delivery Method Room Air 01/22/24 18:49 Vital Signs Temperature 96.9 F L 01/22/24 18:49 Pulse Rate 59 L 01/22/24 18:49 Respiratory Rate 18 01/22/24 18:49 Blood Pressure 161/92 H 01/22/24 18:49 Pulse Oximetry 97 01/22/24 18:49 Oxygen Delivery Method Room Air 01/22/24 18:49 Temperature 96.9 F L 01/22/24 18:49 Pulse Rate 59 L 01/22/24 18:49 Respiratory Rate 18 01/22/24 18:49 Blood Pressure 161/92 H 01/22/24 18:49 Pulse Oximetry 97 01/22/24 18:49 Oxygen Delivery Method Room Air 01/22/24 18:49 Medications Administered Medications: Discontinued Medications Generic Name Dose Route Start Last Admin Trade Name Freq PRN Reason Stop Dose Admin Acetaminophen 1,000 mg 01/22/24 19:46 01/22/24 19:58 Acetaminophen 500 Mg Tablet PO 01/22/24 19:47 1,000 mg ONCE ONE Administration Medical Decision Making MDM Narrative Medical decision making narrative: 78-year-old female status post close head injury with probable concussion. Symptoms worsening today after chiropractic manipulation. Recommend head and neck CTA. Patient states that she would like to go home at this time not have any further imaging. Imaging Data CT scan - head: Attestation: I have reviewed the pertinent imaging results. Radiologist's impression: [place] [address] Diagnostic Imaging Report Patient: Alexandra Gorman MR#: [id number] : 1945 Acct:[id number] Loc: ED Service Date: 01/22/[address]: Ordering Physician: Zenaida Mooney M.D. Date of Service: 01/22/24 Procedure(s): CT head/brain wo con Accession Number(s): [id number] cc: Lisa Quinones M.D.; Zenaida Mooney M.D.~ For Patients: As a result of the Cures Act, medical imaging exams and procedure reports are released immediately into your electronic medical record. You may view this report before your referring provider. If you have questions, please contact your health care provider. TECHNIQUE: Multiplanar CT examination of the head was performed without the use of intravenous contrast. INDICATION: Trauma, on anticoagulation. COMPARISON: None. FINDINGS: No loss of coburn-white differentiation to suggest recent territorial infarct. No intracranial hemorrhage, abnormal extra-axial fluid collection, hydrocephalus or midline shift. The ventricles and cerebral sulci are prominent in caliber, compatible with mild generalized parenchymal volume loss. There is patchy ill-defined hypoattenuation of the periventricular white matter diffusely, nonspecific but consistent with chronic microvascular ischemic changes. Atherosclerotic calcifications of the intracranial ICA segments bilaterally. The basal cisterns are patent. Mild polypoid mucosal thickening of the paranasal sinuses. Otherwise, the paranasal sinuses and mastoid air cells remain clear. The orbits and calvarium are unremarkable. The cerebellar tonsils are normal position. IMPRESSION: 1. No intracranial hemorrhage or midline shift. No acute skull fractures. 2. Mild generalized parenchymal volume loss with chronic microvascular ischemic changes. CT cervical spine: Attestation: I have reviewed the pertinent imaging results. Radiologist's impression: Multiplanar CT examination of the cervical spine was performed without the use of intravenous contrast. INDICATION: Neck pain. Trauma. COMPARISON: None. FINDINGS: Nonspecific straightening of the normal cervical lordosis. No craniocervical dissociation. The vertebral body heights are maintained. No acute fractures or traumatic subluxation. The odontoid process is intact. Grade 1 degenerative anterolisthesis of C3 on C4, C4 on C5 and C7 on T1. Trace degenerative retrolisthesis of C5 on C6. Multilevel degenerative disc disease, severe at C4-5, C5-6 and C6-7. Multilevel facet degeneration, with degenerative auto fusion of the right C3-4 facet joint. Coarse dystrophic calcifications within the nuchal ligament. No high-grade canal stenosis at any cervical spine level. Multilevel neural foraminal stenosis from the hypertrophic degenerative changes, mild at C4-5 through C6-7. No significant prevertebral soft tissue edema. The visualized lung apices are clear. The thyroid gland is unremarkable. IMPRESSION: 1. No acute fracture or traumatic subluxation of the cervical spine. 2. Multilevel cervical spondylosis, as detailed above. Discharge Plan Discharge Clinical Impression: Concussion, Headache Patient Disposition: Home, Self-Care Condition: Stable Additional Instructions: If the headache is not improving over the next couple of hours with your usual headache treatments, I would recommend further imaging in the ER. I would have a very low threshold to return to the ER. If your headache or neck pain worsens at all, you should return right away as this could be a medical emergency. Prescriptions: No Action rosuvastatin 5 mg tablet 5 mg PO QDAY Qty: 90 3RF Rx Instructions: 1 tab daily for cholesterol metoprolol succinate 25 mg tablet extended release 24 hr 25 mg PO BID Qty: 180 3RF anastrozole 1 mg tablet 1 mg PO DAILY nitroglycerin 0.4 mg tablet, sublingual sublingual Eliquis 5 mg tablet 5 mg PO DAILY furosemide 20 mg tablet 20 mg PO DAILY Follow Up/Referrals: Lisa Quinones MD [Primary Care Provider] - Stand Alone Forms: [employer] Info Instructions
== END 2024-01-22 20:50 | disposition home or self-care (01) ==
PROVIDERS: Emergency Provider Family Medicine; PCP Family Medicine
DX: S06.0X0A Concussion without loss of consciousness, initial encounter (principal); W22.8XXA Striking against or struck by other objects, initial encounter; Y93.16 Activity, rowing, canoeing, kayaking, rafting and tubing
CPT/HCPCS: 70450; 72125; 99283; 99284; A9270

== ENCOUNTER 2024-02-17 12:27 | Emergency (ER) | payer MEDICARE, SELFPAY ==
[2024-02-17] VITALS (12 sets, daily range): BP systolic 142–154; BP diastolic 79–90; PULSE 61–68; RESP 18; O2SAT 93–97
--- NOTE | 2024-02-17 13:23 | CT_ITS ---
Patient: ANASTACIA BERG Facility:?[facility] RIS Patient ID:?[id number] Site Patient ID:?[id number]. Site :?1945 Study:?CT-Facial W/O-02/17/2024 5:16:09 PM Ordering Physician:RIMA Final Report: INDICATION: Laceration the right eyebrow. COMPARISON: 01/22/2024. TECHNIQUE: Noncontrast CT of the facial bones. FINDINGS: No facial fractures. Specifically, the nasal bones, zygomatic arches and bony orbits are intact. Asymmetric mild soft tissue swelling of the right periorbital soft tissues compared to the left. Normal orbits bilaterally. Bilateral globes are intact. No proptosis. No retrobulbar hematoma. No intraconal extraconal mass or lesion. Normal symmetric extra-ocular muscles. Visualized paranasal sinuses and mastoid air cells are clear. Normal soft tissue the visualized suprahyoid neck. IMPRESSION: 1. No facial fractures. 2. Asymmetric mild soft tissue swelling of the right periorbital soft tissues consistent with trauma. Otherwise, normal orbits bilaterally. Please note that all CT scans at this facility use dose modulation, iterative reconstruction, and/or weight-based dosing when appropriate to reduce radiation dose to as low as reasonably achievable. Dictated by Butch Schneider MD @ 02/17/2024 5:24:11 PM Signed by:?Butch Schneider MD @02/17/2024 5:24:11 PM (Electronic Signature)
--- NOTE | 2024-02-17 13:23 | CT_ITS ---
Patient: ANASTACIA BERG Facility:?[facility] RIS Patient ID:?[id number] Site Patient ID:?[id number]. Site :?1945 Study:?CT-Head W/O-02/17/2024 5:14:22 PM Ordering Physician:RIMA Final Report: INDICATION: Laceration to right eyebrow. Head trauma. COMPARISON: 01/22/2024. TECHNIQUE: Noncontrast CT head. FINDINGS: Mild generalized volume loss. No acute intracranial hemorrhage, acute infarct, mass effect, or fracture. No midline shift. No abnormal ventricular dilatation. Normal calvarium and skull base. Visualized paranasal sinuses mastoid air cells are clear. Visualized orbits are unremarkable. Visualized paranasal sinuses and mastoid air cells are clear. IMPRESSION: 1. No acute intracranial abnormality. 2. Mild generalized cerebral volume loss. Please note that all CT scans at this facility use dose modulation, iterative reconstruction, and/or weight-based dosing when appropriate to reduce radiation dose to as low as reasonably achievable. Dictated by Butch Schneider MD @ 02/17/2024 5:22:16 PM Signed by:?Butch Schneider MD @02/17/2024 5:22:16 PM (Electronic Signature)
--- OUTSIDE RECORDS SUMMARY | 2024-02-17 14:00 | XMS_ITS | Encounter Summary ---
Author Organization [employer] Address [address], [place] [address] Care Team Providers Care Graphics Software Engineer Name Role Phone Memo Matos MD Primary Care Provider [phone] Reason for Visit * Reason Comments Refill ELIQUIS 5 MG tablet [Pharmacy Med Name: ELIQUIS 5MG TABLETS] Encounter Details Date Type Department Care Team (Late st Contact Info) Description 12/16/[address] [facility] [address] [place] [address] Rosette Connor MD [address] [place], [place] [id number] Refill (ELIQUIS 5 MG tablet [Pharmacy Med [...] was found) Next scheduled visit: [facility] Embedded Refills, Reference: [id number], 12/16/2023 3:49:46 AM CDT, Karyn Owens Centralized Services - Primary Care [[id number]] ([id number]) documented in this encounter Plan of Treatment Not on file documented as of this encounter Visit Diagnoses Diagnosis Paroxysmal atrial fibrillation (HRC) Atrial fibrillation documented in this encounter Care Teams Graphics Software Engineer Relationship Specialty Start Date End Date Memo Matos MD [address] [address] PCP - General 01/08/11 documented as of this encounter
--- OUTSIDE RECORDS SUMMARY | 2024-02-17 14:00 | XMS_ITS | Clinical Summary ---
Author Organization [employer] Address [address] [place] [address] Care Team Providers Care Nipping Machine Operator Name Role Phone Memo Matos MD Primary Care Provider [phone] Source Comments You are receiving this document as you are listed as the primary care provider,follow-up provider, or the patient has been referred to you for consultation.This is in compliance with the Medicare and[facility] EHR Incentive Program,which states Providers who transition their patient to another setting of careor provider of care or refers their patient to another provider of care shouldprovide summary care record for each transition of care or referral. 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 Therapeutic range: 2 - 3. Warfarin pill strength: 2mg. Initiation date ( AKA date when started on warfarin ): 01/01/2022. Length of treatment: Indefinite. Patient has been discontinued from anticoagulation therapy due to switching to Xarelto. Crystal Miller RN Induration of skin 11/13/2020 2 Overview (11/13/2020): Chest Right History of NV (myocardial infarction) 11/13/2020 10/31/2021 Impingement syndrome, shoulder, left 05/16/2019 10/31/2021 Chronic left shoulder pain 05/14/2019 0 10/31/2021 Malignant neoplasm of upper- outer quadrant of right breast in female, estrogen receptor positive 06/20/2017 02/08/2019 Overview (04/15/2019): Right Breast CA, invasive ductal (IDC), grade III/III, mixed with DCIS (G3, solid/ cribriform), dx 06/19/2017. AJCC stage IIA (pT2 N0 M0). ER/ HI +ve (99 & 86%), HER2 IHC -ve (0+). --07/16/2017, S/p MRM, SLN, immediate flap reconstruction by Dr Taveras and Dr Cuevas. IDC 3.5 cm, LVI + (extensive), 0/1 LN, margins clear. Oncotype Dx: intermediate (24). -- Candidate for adjuvant chemo (Taxotere/ Cytoxan). -- Candidate for adjuvant Endocrine therapy (AI x 5-10 yrs). Breast mass, right 05/30/2017 8 Overview (04/15/2019): Breast mass, right 12:00 3 cm from areolar border Symptomatic PVCs 01/10/2017 08/11/2017 Neoplasm of uncertain behavi or of skin of face 01/10/2017 07/08/2017 Overview (04/15/2019): Neoplasm of uncertain behavior of skin of [...] 12/29/2010 CAD (coronary artery disease) 12/28/2010 11/01/2013 Overview (04/16/2019): 12/28/[address] cor with angio with VICENTE to ostial D1, Plavix X 1 year, ASA lifelong Anxiety 05/04/2009 10/31/2021 Hyperlipidemia 05/04/2009 11/01/2013 Disorder of bone and cartilage 05/04/2009 08/12/2017 Overview: Osteopenia Encounters Date Type Department Care Team Description 12/16/2023 [facility] [address] [place] [address] [place] Connor MD Refill (ELIQUIS 5 MG [...] T Respiratory Rate 18 05/29/2022 10:39 AM SENIOR MATERIALS ANALYST Oxygen Saturation 97% 01/02/2023 8:31 AM CDT Inhaled Oxygen Concentration - - Weight 73 kg (161 lb) 02/03/2023 8:25 AM CDT Height 148 cm (4' 10.27) 12/03/2022 10:29 AM CD T Body Mass Index 33.34 12/03/2022 10:29 AM CDT Plan of Treatment Health Maintenance Due Date Last Done Comments Zoster/Shingles (1 of 2) 11/17/1993 Pneumococcal 65+ Yrs (1 - PCV) 11/17/2008 Medicare Annual Wellness Visit 06/16/2023 12/03/2022, 12/04/2021, 11/07/2020, Additional history exists COVID-19 Vaccine (1 - 2022- season) 2024 Influenza (#1) 2024 DTaP/Tdap/Td (2 - Tdap) [...] mineral density study was performed using the [employer] Wi ([id number]). The results of the study expressed as [...] mineral density study was performed using the [employer] Wi ([id number]). The results of the study expressed as [...] 9:30 AM 04/28/2014 6:25 AM Care Teams Nipping Machine Operator Relationship Specialty Start Date End Date Memo Matos MD [address] [place] [address] PCP - General 01/08/11
--- OUTSIDE RECORDS SUMMARY | 2024-02-17 14:00 | XMS_ITS | Clinical Summary ---
Author Organization [facility] Address [place], [place] [address] Care Team Providers [employer] Underground Utility Locator Name Role Phone Sumanth Raygoza MD Unavailable Tamara Coleman RN Unavailable Ayde Taveras MD Unavailable [phone] Jacy Overton INTERNETWORKING TECHNICIAN Unavailable Annabel Holt MD Unavailable Melvin Gregory Unavailable [phone] [facility] Pr ovider Allergies Active Allergy Reactions Criticality Noted Date Comments Codeine Nausea And Vomiting High 12/27/2010 Morphine GI Upset 10/18/2015 Penicillins Rash 12/27/2010 Medications Medication Sig Dispensed Refills Start Date End Date Status cholecalciferol (VITAMIN D) 1,000 unit capsule Take 1 capsule by mouth once daily. 0 08/25/2018 Active nitroglycerin (NITROSTAT) 0.4 mg sublingual tabletIndications: Other chest pain Place 1 tablet under the tongue every 5 minutes if needed for Chest Pain. 25 tablet 09/11/2018 Active anastrozole (ARIMIDEX) 1 mg tabletIndications: Recurrent malignant neoplasm of right breast (HC) Take 1 Tablet (1 mg) by mouth once daily. 90 Tablet 3 10/23/2022 Active ACETAMINOPHEN EXTRA STRENGTH ORAL Take 1,300 mg by mouth every 8 hours if needed. Active loperamide (IMODIUM) 2 mg capsuleIndications :Chemotherapy induced diarrhea Take 2 capsules (4mg) orally with 1st loose stool, then 1 capsule (2mg) with other loose stools. Max 16 mg in 24 hrs. 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 90 Tablet 3 12/16/2023 Active furosemide (LASIX) 20 mg tabletIndications: Chest pain, unspecified type,Bilateral leg edema Take 1 Tablet (20 mg) by mouth once daily in the morning. 90 Tablet 3 12/16/2023 Active metoprolol succinate (Toprol XL) 50 mg sustained-release tabletIndications: Chest pain, unspecified type,Paroxysmal atrial fibrillation (HC),Palpitation Take 1 Tablet (50 mg) by mouth once daily. 90 Tablet 3 12/16/2023 Active Eliquis 5 mg tabletIndications: Paroxysmal atrial fibrillation (HC) Take 1 Tablet (5 mg) by mouth two times daily. 01/09/2024 Active palbociclib (IBRANCE) 100 mg tabletIndications: Recurrent malignant neoplasm of right breast (HC) Take 1 tablet (100 mg) by mouth once daily. Take on days 1-21 of each 28 day cycle. 21 Tablet 2 07/30/2023 4 Discontinued (*Discontinu ed by another clinician) Active Problems Patient Care Coordination No te [...] from 02/01/2021:Stage Unknown(rcT4, cNX, cM0, G3, ER+, NV+, HER2-) - Signed by Jacy Morgan MD on 02/01/2021 Resolved Problems Problem Noted Date Diagnosed Date Resolved Date Right Breast Cancer, stage IIA 06/20/2017 02/08/2019 Overview: Right Breast CA, invasive ductal (IDC), grade III/III, mixed with DCIS (G3, solid/ cribriform), dx 06/19/2017. AJCC stage IIA (pT2 N0 M0). ER/ NV +ve (99 & 86%), HER2 IHC -ve [...] Encounters Date Type Department Care Team Description 01/23/2024 3:00 PM CDT Ancillary Procedure [place] [address] [place] [address] 01/23/2024 Travel 01/19/2024 9:00 AM CDT Office Visit [address] [address] Annabel Holt MD Follow Up (Recurrent malignant neoplasm of right breast (HC) [C50.911]//) 01/14/2024 10:30 AM CDT Office Visit [facility] Breast [address] [place] [address] Magdalena Cornelius PA Follow Up 01/14/2024 Travel 01/09/2024 8:05 AM CDT - 01/09/2024 4:00 PM CDT Hospital Encounter 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); Encounter for other screening for malignant neoplasm of breast Discharge Disposition: Home Self Care 01/09/2024 Orders Only [facility] Breast [place] - [address] [place] [address] Georgina Roberts PA <No scans attached> 01/09/2024 Travel 01/08/2024 1:23 PM CDT - 01/08/2024 11:59 PM CDT Hospital Encounter [facility] [address] [place] [address] Annabel Holt MD Ductal carcinoma in situ (DCIS) of left breast 01/07/2024 12:42 PM CDT - 01/07/2024 11:59 PM CDT Hospital Encounter [facility] [address] [place] [address] Annabel Holt MD Ductal carcinoma in situ (DCIS) of left breast 01/07/2024 Travel 01/02/2024 Telephone [facility] [address] [place] [address] Annabel Holt MD Appointment 12/30/2023 11:00 AM CDT Office Visit [facility] [address] [facility] [place] [address] Annabel Holt MD Follow Up (Recurrent malignant neoplasm of right breast (HC)//) 12/30/2023 Travel 12/25/2023 7:09 AM CDT - 12/25/2023 11:59 PM CDT Hospital Encounter [facility] [address] [place] [address] Recurrent malignant neoplasm of right breast (HC); 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 Last seen 09/2023. Recent CT and ZIO/pt states her chest still feelings funny sometimes.//PCP: Memo Matos MD/) 12/16/2023 Travel from Last 3 Months Immunizations Name [...] Care Team (Late st Contact Info) Description 03/12/2024 10:45 AM CDT Orders Only [facility] [address] [place] [address] [place], [place] 03/16/2024 10:45 AM CDT Office Visit [facility] [address] [place] [address] Jacy Overton, INTERNETWORKING TECHNICIAN [address] [place] [address] Health Maintenance Due Date Last Done Comments [...] history exists Medical Devices Implanted Type Area Headlight Assembler Device Identifier Shelf Expiration Date Model / Serial / Lot [id number] betsy Breast 500cc Natrelle Tab Mod Extra Prjctn Saline Implanted:Qty: 1 on 07/16/2017 by Serafin Cuevas MD at [facility] Explanted:at [facility] (Quantity not on file) Right: Breast [employer] 133MX-13-[id number] # / [id number] / [id number] betsy Breast 500cc Natrelle Smooth Mod Extra W/Fourte Implanted:Qty: 1 on 01/08/2021 by Serafin Cuevas MD at [facility] Explanted:at [facility] (Quantity not on file) Right: Breast [employer] 05/31/2024 133S-MX-13 -[id number] / [id number] / Procedures Procedure Name Priority Date/Time Associated Diagnosis Comments ECHO TTE COMPLETE WO CONTRAST Routine 01/23/2024 3:47 PM CDT Chest pain, unspecified type Abnormal CT scan of heart Paroxysmal atrial fibrillation (HC) Palpitation Bilateral leg edema XR MAMMO ATUL UNI SCREEN LEFT Routine [...] 7:21 AM CDT 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 [id number] : ?1945 78 years Study Date: ?? 01/23/2024 3:06:05 PM Gender: F ? BP: ? 144/82 mmHg Height: 152.40 cm ? BSA: ?1.70 m? ? ? Weight: 72.58 kg ?Tech: ? JCP ?Referring MD: PAWEL JHAVERI Site: ? [facility] Reading Location: MOBILE - OP Patient Location: Procedure: 2D, Color Doppler and Spectral Doppler. Indication for study: CT, Afib, palpitations, edema, abnormal CT Cardiac Rhythm: Normal sinus.Study quality: Excellent. Final Impressions: 1. Normal LV size, normal wall thickness, normal global systolic function with an estimated EF of 55 - 60%. 2. Right ventricular cavity size is normal, global systolic RV function is normal. 3. No significant valve disease detected. Chamber Sizes and Function Normal left ventricular size, normal wall thickness, normal global systolic function with an estimated EF of 55 - 60%. Left atrial size is normal. Left atrial pressure is normal. Right ventricular cavity size is normal, global systolic RV function is normal. RV wall thickness is normal. The right atrium is normal. The pulmonary artery is of normal size and origin. The sinus of Valsalva is normal sized. The ascending aorta is normal sized. Valves, RV Pressures and Diastolic Function The aortic valve is trileaflet and sclerotic, no stenosis and no regurgitation. The mitral valve is normal in structure, no mitral regurgitation. Indeterminate pattern of LV diastolic filling. The tricuspid valve is normal in structure. Tricuspid regurgitation is trace regurgitation. The pulmonic valve is not well visualized. Trace pulmonary regurgitation. Masses, Effusion, Shunts There is no pericardial effusion. The inferior vena cava is normal sized, respiratory size variation greater than 50%. No left to right shunting was detected by limited color flow Doppler interrogation of the interatrial septum. MEASUREMENTS AND CALCULATIONS 2-D Measurements and LV Function: LVID (d) 3.5 cm LV FS% (2D) ?? 40 % LVID (s) 2.1 cm LVOT diameter 2.0 cm IVS (d) ??1.1 cm HR ?59 bpm LVPW (d) 0.9 cm LA Vol index ??31 ml/m2 Ao Sinus 3.1 cm Asc Ao ?? 3.5 cm Diastology: Mitral ?Tissue Doppler E Peak 1.0 m/s ??e', Septum ? 0.06 m/s A Peak 1.0 m/s ??e', Lateral ?0.08 m/s E/A ?0.9 ?E/e' Average ?? 14.52 DT ? 244 msec Aortic Valve: Vmax ? 1.7 m/s ??RACHEL (V) ?? 1.85 cm? ? ? VTI ?0.32 m ?? RACHEL (I) ?? 2.00 cm? ? ? LVOT V max 1.0 m/s ??Max PG ?12 mmHg LVOT VTI ?? 0.21 m ?? Mean PG ?? 6 mmHg SV ? 65 ml ?Dim Index 0.64 SV index ?? 38 ml/m? ? ? CO ?3.8 l/min ?CI ?2.2 l/min/m? ? ? Mitral Valve: MVA ?3.1 cm? ? ? MV P 1/2 71 msec Tricuspid Valve and estimated PA pressures: TAPSE 2.3 cm . This study was interpreted by an [facility] accredited facility. ??Final ?? Procedure Note Syed Gleason MD - 01/23/2024 ECHOCARDIOGRAM ALEXANDRA GORMAN : 1945 78 years Study Date: 01/23/2024 3:06:05 PM Gender: F BP: 144/82 mmHg Height: 152.40 cm BSA: 1.70 m? ? ? Weight: 72.58 kg Tech: JERI Referring MD: PAWEL JHAVERI Site: [facility] Reading Location: MOBILE - OP Patient Location: Procedure: 2D, Color Doppler and Spectral Doppler. Indication for study: CT, Afib, palpitations, edema, abnormal CT Cardiac Rhythm: Normal sinus.Study quality: Excellent. Final Impressions: 1. Normal LV size, normal wall thickness, normal global systolic functionwith an estimated EF of 55 - 60%. 2. Right ventricular cavity size is normal, global systolic RV functionis normal. 3. No significant valve disease detected. Chamber Sizes and Function Normal left ventricular size, normal wall thickness, normal globalsystolic function with an estimated EF of 55 - 60%. Left atrial size isnormal. Left atrial pressure is normal. Right ventricular cavity size isnormal, global systolic RV function is normal. RV wall thickness isnormal. The right atrium is normal. The pulmonary artery is of normal sizeand origin. The sinus of Valsalva is normal sized. The ascending aorta isnormal sized. Valves, RV Pressures and Diastolic Function The aortic valve is trileaflet and sclerotic, no stenosis and noregurgitation. The mitral valve is normal in structure, no mitralregurgitation. Indeterminate pattern of LV diastolic filling. Thetricuspid valve is normal in structure. Tricuspid regurgitation is traceregurgitation. The pulmonic valve is not well visualized. Trace pulmonaryregurgitation. Masses, Effusion, Shunts There is no pericardial effusion. The inferior vena cava is normal sized,respiratory size variation greater than 50%. No left to right shunting wasdetected by limited color flow Doppler interrogation of the interatrialseptum. MEASUREMENTS AND CALCULATIONS 2-D Measurements and LV Function: LVID (d) 3.5 cm LV FS% (2D) 40 % LVID (s) 2.1 cm LVOT diameter 2.0 cm IVS (d) 1.1 cm HR 59 bpm LVPW (d) 0.9 cm LA Vol index 31 ml/m2 Ao Sinus 3.1 cm Asc Ao 3.5 cm Diastology: Mitral Tissue Doppler E Peak 1.0 m/s e', Septum 0.06 m/s A Peak 1.0 m/s e', Lateral 0.08 m/s E/A 0.9 E/e' Average 14.52 DT 244 msec Aortic Valve: Vmax 1.7 m/s RACHEL (V) 1.85 cm? ? ? VTI 0.32 m RACHEL (I) 2.00 cm? ? ? LVOT V max 1.0 m/s Max PG 12 mmHg LVOT VTI 0.21 m Mean PG 6 mmHg SV 65 ml Dim Index 0.64 SV index 38 ml/m? ? ? CO 3.8 l/min CI 2.2 l/min/m? ? ? Mitral Valve: MVA 3.1 cm? ? ? MV P 1/2 71 msec Tricuspid Valve and estimated PA pressures: TAPSE 2.3 cm . This study was interpreted by an [facility] accredited facility. Final Pawel Jhaveri MD ECHO ORD * XR MAMMO ATUL UNI SCREEN LEFT [...] provider. XR MAMMO ATUL UNI SCREEN LEFT [[id number]] CLINICAL HISTORY: ??This is an asymptomatic 78 [...] post surgical changes of left breast. Magdalena Cornelius PA MAMMO * (ABNORMAL) ACTIVATED CLOTTING TIME OFF655 ACT (01/09/2024 12:43 PM CDT) Only the most recent of2 resultswithin the time period is included. ACTIVATED CLOTTING TIME, POCT 266(H) 74 - 125 sec 01/10/2024 8:20 AM CDT [facility] Blood BLOOD SPECIMEN / Unknown 01/09/2024 12:43 PM CDT 01/10/2024 8:20 AM CDT Pawel Jhaveri MD HEMATOLOGY [facility] [address] [place] [address] * CVL CORONARY ANGIOGRAM POSS PCI (01/09/2024 12:04 PM CDT) Anatomical Region Laterality Modality X-Ray Angiograph y, X-Ray Angiography 01/09/2024 12:0 4 PM CDT Narrative Transcriptions Pawel Jhaveri MD - 01/09/2024 1:19 PM CDT [facility] Cardiac Catheterization Report Name: ALEXANDRA GORMAN Event Date: 01/09/2024 12:04 [facility] ID #: [id number] DINO #: [id number] Patient Class: Outpatient Diagnostic Physician: PAWEL JHAVERI [facility] Referring Physician: Date: 1945 Gender: Female Age: [...] with primary physician * Follow up with healthcare manager Consent & Shir[place] Protocol The risks, benefits, and alternatives of the procedure were discussed withthe patient and written informed consent was obtained. [place] protocol was followed. TIME OUT conducted just prior tostarting procedure confirmed patient identity, site/side, procedure,patient position, and availability of correct equipment and implants (ifapplicable). Staff Name Title Pawel Jhaveri Diagnostic Tourist Cabin Keeper Janet Trejo CVT Scrub Rula Taylor CVT Monitor Lizbeth Feng RN Battery Plate Assembler pneumatic tester mechanic ? Ultrasound Guided Vascular Access ? Coronary [...] Pressure 3 Proximal RCA IVUS CATH IVUS [place] [facility] [place] 3 Proximal RCA Pressure Wire Wire Pressure OpSens 1 1st Diagonal Pressure Wire Wire Pressure OpSens <[id number]> 2 Proximal LAD Pressure Wire Wire Pressure OpSens <[id number]> Procedure Details Estimated Blood Loss: < 30 [...] healthcare professional providing the sedation ends personal buedwrbgkswfrq-wa-biaq time with the patient. The medications listed above were verbally ordered by me and read back tome as documented above. Refer to the procedure log report for additional case details. electronically signed on 01/09/2024 1:19:09 PM with status of Final Pawel Jhaveri MD [facility] [address] [facility] [address] [place] [address] (p) [phone](f) Provider Referring CV IMAGING * CBC with Platelets no Differential (01/09/2024 8:47 AM CDT) WHITE BLOOD COUNT 5.7 4.5 - 11.0 thou/cu mm 01/09/2024 9:29 AM CDT [facility] RED BLOOD COUNT 4.37 4.00 - 5.20 mil/cu mm 01/09/2024 9:29 AM CDT [facility] HEMOGLOBIN 13.5 12.0 - 16.0 g/dL 01/09/2024 9:29 AM CDT [facility] HEMATOCRIT 41.2 33.0 - 51.0 % 01/09/2024 9:29 AM CDT [facility] MCV 94 80 - 100 fL 01/09/2024 9:29 AM CDT [facility] MCH 30.9 26.0 - 34.0 pg 01/09/2024 9:29 AM CDT [facility] MCHC 32.8 32.0 - 36.0 g/dL 01/09/2024 9:29 AM CDT [facility] RDW 14.0 11.5 - 15.5 % 01/09/2024 9:29 AM CDT [facility] PLATELET COUNT 186 140 - 440 thou/cu mm 01/09/2024 9:29 AM CDT [facility] MPV 9.8 6.5 - 11.0 fL 01/09/2024 9:29 AM CDT [facility] NRBC 0.0 % 01/09/2024 9:29 AM CDT [facility] ABS NRBC 0.0 thou /cu mm 01/09/2024 9:29 AM CDT [facility] Blood BLOOD SPECIMEN / Unknown Non-Lab Venipuncture / Unknown 01/09/2024 8:47 AM CDT 01/09/2024 8:57 AM CDT Narrative [facility] - 01/09/2024 9:29 AM CDT If not done within past 14 days. ??Nurse to release order. Pawel Jhaveri MD HEMATOLOGY [facility] [address] [place] [address], * (ABNORMAL) Basic Metabolic Panel (01/09/2024 8:47 AM CDT) SODIUM 139 136 - 145 mmol/L 01/09/2024 9:23 AM CDT [facility] POTASSIUM 3.7 3.5 - 5.1 mmol/L 01/09/2024 9:23 AM T [facility] CHLORIDE 105 98 - 107 mmol/L 01/09/2024 9:23 AM T [facility] CO2,TOTAL 26 22 - 29 mmol/L 01/09/2024 9:23 AM T [facility] ANION GAP 8 5 - 18 01/09/2024 9:23 AM T [facility] GLUCOSE 100(H) 70 - 99 mg/dL 01/09/2024 9:23 AM T [facility] CALCIUM 9.3 8.8 - 10.2 mg/dL 01/09/2024 9:23 AM T [facility] BUN 12 8 - 23 mg/dL 01/09/2024 9:23 AM T [facility] CREATININE 0.82 0.50 - 0.90 mg/dL 01/09/2024 9:23 AM T [facility] BUN/CREAT RATIO 15 10 - 20 9:23 AM T [facility] eGFR 72(L) >90 mL/min/1.7 3m2 01/09/2024 9:23 AM T [facility] Comment:As of 2021, eG FR [...] 8:57 AM CDT Pawel Jhaveri MD [facility] [address] [place] [address], [place] * 12 Lead EKG (01/09/2024 8:35 AM [...] NOW QTc 448 ms BEYOND NOW P [place] 42 degrees BEYOND NOW R [place] -42 degrees BEYOND NOW T [place] 8 degrees BEYOND NOW 01/09/2024 8:35 AM CDT 01/09/2024 7:25 PM CDT Narrative BEYOND NOW - 01/09/2024 7:25 PM CDT Test Indication: PRE OP Pawel Jhaveri MD EKG ORD BEYOND NOW [place], [place] * MR CHEST STERNUM WWO (01/08/2024 [...] @ 01/09/2024 10:30:51 AM (Electronically Signed) Annabel Raimundo Holt MD MR * MR SHOULDER RIGHT [...] the proximal clavicle extending proximal from the exirg-tl-mfeo. No fracture or bone lesion in the [...] atthe proximal clavicle extending proximal from the hpqfe-bz-ivck. Nofracture or bone lesion in the field [...] stable atherosclerotic calcifications, few unchanged pulmonary nodules, orkwnoti-cm-mlgvo hiatal hernia, small right kidney cyst, diverticulosis, and stable degenerative changes. Impression: Minimally displaced right sternal clavicular head fracture with underlying sclerosis - pathologic versus subacute fracture. Otherwise, stable study. Dictated by Javed Limon MD @ 12/29/2023 10:42:56 AM (Electronically Signed) Procedure Note Javed Limon MD - 12/29/2023 For Patients: As a result of the 21st Century Cures Act, medical imagingexams and procedure [...] include stable atherosclerotic calcifications, fewunchanged pulmonary nodules, trzsukkd-wi-cwkgd hiatal hernia, small rightkidney cyst, diverticulosis, and stable degenerative changes. Impression: Minimally displaced right sternal clavicular head fracture with underlyingsclerosis - pathologic versus subacute fracture. Otherwise, stablestudy. Dictated by Javed Limon MD @ 12/29/2023 10:42:56 AM (Electronically Signed) Annabel Holt MD PET * CBC WITH AUTO DIFFERENTIAL (12/25/2023 7:21 AM CDT) WHITE BLOOD COUNT 5.4 4.5 - 11.0 thou/cu mm 12/25/2023 7:25 AM [facility] RED BLOOD COUNT 4.57 4.00 - 5.20 mil/cu mm 12/25/2023 7:25 AM T [facility] HEMOGLOBIN 14.5 12.0 - 16.0 g/dL 12/25/2023 7:25 AM [facility] HEMATOCRIT 43.5 33.0 - 51.0 % 12/25/2023 7:25 AM [facility] MCV 95 80 - 100 fL 12/25/2023 7:25 AM [facility] MCH 31.7 26.0 - 34.0 pg 12/25/2023 7:25 AM [facility] MCHC 33.3 32.0 - 36.0 g/dL 12/25/2023 7:25 AM [facility] RDW 14.4 11.5 - 15.5 % 12/25/2023 7:25 AM [facility] PLATELET COUNT 164 140 - 440 thou/cu mm 12/25/2023 7:25 AM [facility] MPV 9.8 6.5 - 11.0 fL 12/25/2023 7:25 AM [facility] % NEUT 53.8 % 12/25/2023 7:25 AM [facility] % LYMPH 27.6 % 12/25/2023 7:25 AM [facility] % MONO 11.3 % 12/25/2023 7:25 AM [facility] % EOS 6.9 % 12/25/2023 7:25 AM [facility] % BASO 0.4 % 12/25/2023 7:25 AM [facility] ABSOLUTE NEUTROPHILS 2.9 1.7 - 7.0 thou/cu mm 12/25/2023 7:25 AM [facility] ABSOLUTE LYMPHOCYTES 1.5 0.9 - 2.9 thou/cu mm 12/25/2023 7:25 AM [facility] ABSOLUTE MONOCYTES 0.6 <0.9 thou/cu mm 12/25/2023 7:25 AM [facility] ABSOLUTE EOSINOPHILS 0.4 <0.5 thou/cu mm 12/25/2023 7:25 AM [facility] ABSOLUTE BASOPHILS 0.0 <0.3 thou/cu mm 12/25/2023 7:25 AM [facility] Blood BLOOD SPECIMEN / Unknown Venipuncture / Unknown 12/25/2023 7:21 AM CDT 12/25/2023 7:21 AM [facility] - 12/25/2023 7:25 AM T This procedure was originally ordered at [facility]. This procedure was originally ordered at [facility]. Jacy Overton NP HEMATOLOGY [facility] [address] [place] [address] * LIPID PANEL W REFLEX MEASURED LDL (12/25/2023 7:21 AM CDT) CHOLESTEROL,TOTAL 198 100 - 199 mg/dL 12/25/2023 7:43 AM T [facility] Comment: Cholesterol, Total Reference Ranges Desirable <200 mg/dL Borderline 200-239 mg/dL High >=240 mg/dL TRIGLYCERIDES 81 <150 mg/dL 12/25/2023 7:43 AM T [facility] HDL CHOLESTEROL 81 >40 mg/dL 7:43 AM [facility] NON-HDL CHOLESTEROL 117 <145 mg/dl 12/25/2023 7:43 AM [facility] CHOL/HDL RATIO 2.44 <4.50 12/25/2023 7:43 AM [facility] LDL CHOLESTEROL 101 <=130 mg/dL 12/25/2023 7:43 AM [facility] VLDL CHOLESTEROL 16 <=30 mg/dL 12/25/2023 7:43 AM [facility] PROVIDER ORDERED STATUS FASTING 12/25/2023 7:43 AM [facility] Blood BLOOD SPECIMEN / Unknown Venipuncture / Unknown 12/25/2023 7:21 AM CDT 12/25/2023 7:21 AM CDT Pawel Jhaveri MD CHEMISTRY [facility] [address] [place] [address] * CA 15-3 (12/25/2023 7:21 AM CDT) CA 15-3 18.5 <26.0 U/mL 12/25/2023 1:07 PM CDT [facility] Blood BLOOD SPECIMEN / Unknown Venipuncture / Unknown 12/25/2023 7:21 AM CDT 12/25/2023 7:21 AM CDT Narrative [facility] - 12/25/2023 1:07 PM CDT The [...] to retesting. Jacy Overton NP S[facility] OUTS [facility] [facility] [address] [place] [address], [place] * (ABNORMAL) COMP METABOLIC PANEL (12/25/2023 7:21 AM CDT) SODIUM 141 136 - 145 mmol/L 12/25/2023 7:43 AM [facility] POTASSIUM 4.2 3.5 - 5.1 mmol/L 12/25/2023 7:43 AM [facility] CHLORIDE 105 98 - 107 mmol/L 12/25/2023 7:43 AM [facility] CO2,TOTAL 29 22 - 29 mmol/L 12/25/2023 7:43 AM [facility] ANION GAP 7 5 - 18 12/25/2023 7:43 AM [facility] GLUCOSE 121(H) 70 - 99 mg/dL 12/25/2023 7:43 AM [facility] CALCIUM 9.7 8.8 - 10.2 mg/dL 12/25/2023 7:43 AM [facility] BUN 16 8 - 23 mg/dL 12/25/2023 7:43 AM [facility] CREATININE 0.76 0.50 - 0.90 mg/dL 12/25/2023 7:43 AM [facility] BUN/CREAT RATIO 21(H) 10 - 20 7:43 AM [facility] eGFR 79(L) >90 mL/min/1.7 3m2 12/25/2023 7:43 AM [facility] Comment:As of 2021, eG FR is calculated by the CKD-EPI creatinine equation without race adjustment. ??eGFR can be influenced by muscle mass, exercise, and diet. ??The reported eGFR is an estimation only and is only applicable if the renal function is stable. ALBUMIN 4.3 4.0 - 4.9 g/dL 12/25/2023 7:43 AM [facility] PROTEIN,TOTAL 6.8 6.0 - 8.0 g/dL 12/25/2023 7:43 AM [facility] BILIRUBIN,TOTAL 0.6 0.0 - 1.2 mg/dL 12/25/2023 7:43 AM [facility] ALK PHOSPHATASE 75 35 - 104 IU/L 12/25/2023 7:43 AM [facility] ALT (SGPT) 8(L) 10 - 35 IU/L 12/25/2023 7:43 AM [facility] AST (SGOT) 18 10 - 35 IU/L 12/25/2023 7:43 AM [facility] Blood BLOOD SPECIMEN / Unknown Venipuncture / Unknown 12/25/2023 7:21 AM T 12/25/2023 7:21 AM T Jacy Overton NP CHEMISTRY [facility] [address] [place] [address] * XR DXA BONE DENSITY 2 SITES [...] regular exercise. Federico Berry M.D. Body/Diagnostic Radiologist [facility] [employer]. [email or web address] / Narrative 01/29/2023 9:14 AM CDT For Patients: Results are automatically released to your [employer] account once available, in compliance with federal regulations. This means that you may see your results before your provider has had a chance to review them. Please allow 2-3 business days for your provider to comment on the results. XR DXA Bone Mineral Density (BMD) EXAM LOCATION: [address] [id number] PATIENT NAME: Alexandra Gorman DATE [...] two scanners are made by the same screening nurse. PROCEDURE: Dual-energy x-ray absorptiometry performed with routine [...] 10:44 AM 10/16/2018 6:08 PM Care Teams Underground Utility Locator Relationship Specialty Start Date End Date Clinic, [facility] [address] [place] [address] PCP - General 12/22/23 Sumanth Raygoza MD [address] [place] [address] Radiation Oncology 01/24/21 Tamara Coleman, RN [address] [place] [id number] Nurse Navigator - Oncology Registered Nurse 02/20/23 Ayde Taveras MD [address] [place] [id number] Surgery - General 04/23/18 Jacy Overton, IRIS [address] [place] [address] Nurse Practitioner Hematology and Oncology 07/07/23 Annabel Holt MD [address] [place] [address] Medical Oncologist Hematology and Oncology 07/07/23 Melvin Gregory LSW [address] [place] [address] Beer Coil Cleaner Oncology 09/15/23
--- NOTE | 2024-02-17 15:29 | ED.GENADULT ---
HPI - General Adult General Chief complaint: Laceration/Wound Stated complaint: laceration right eyebrow Time Seen by Provider: 02/17/24 12:59 Source: patient Mode of arrival: ambulatory Limitations: no limitations History of Present Illness HPI narrative: 78-year-old female presenting today with a laceration to the right eyebrow. Patient states that she was putting weight boxes when she tripped falling forward onto the concrete floor. She did not lose consciousness. She was able to get up without assistance. She complains of pain over the right eyebrow. She denies headache. She denies nausea or vomiting, no confusion, no changes in her speech. She denies any neck pain. Patient does take Eliquis for history of atrial fibrillation. The fall occurred just over an hour ago. Related Data Home Medications ?Medication ?Instructions ?Recorded ?Confirmed anastrozole 1 mg tablet 1 mg PO DAILY 05/20/23 02/17/24 nitroglycerin 0.4 mg sublingual mg sublingual 05/20/23 01/15/24 tablet apixaban 5 mg tablet (Eliquis) 5 mg PO DAILY 08/27/23 02/17/24 furosemide 20 mg tablet 20 mg PO DAILY 01/22/24 02/17/24 Previous Rx's ?Medication ?Instructions ?Recorded rosuvastatin 5 mg tablet 5 mg PO QDAY #90 tabs 12/03/23 metoprolol succinate 25 mg 25 mg PO BID #180 tabs 01/15/24 tablet,extended release 24 hr Allergies Allergy/AdvReac Type Severity Reaction Status Date / Time codeine Allergy Intermediate Vomiting Verified 02/17/24 12:53 Penicillins Allergy Mild Rash Verified 02/17/24 12:53 Review of Systems Status of ROS: Reports: 10 or more systems reviewed and unremarkable except as noted in History and below [facility] Medical History GLORIA (generalized anxiety disorder) ?F41.1 - Generalized anxiety disorder (ICD-10) Obesity ?E66.9 - Obesity, unspecified (ICD-10) Lower extremity edema ?R60.0 - Localized edema (ICD-10) History of blood clots ?Z86.718 - Personal history of other venous thrombosis and embolism (ICD-10) 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 - Other specified nonscarring hair loss (ICD-10) Diverticulosis ?K57.90 - Diverticulosis of intestine, part unspecified, without perforation or abscess without bleeding (ICD-10) Osteopenia ?M85.80 - Other specified disorders of bone density and structure, unspecified site (ICD-10) RICKEY (obstructive sleep apnea) (2013) ?G47.33 - Obstructive sleep apnea (adult) (pediatric) (ICD-10) GERD (gastroesophageal reflux disease) ?K21.9 - Gastro-esophageal reflux disease without esophagitis (ICD-10) Esophageal dysphagia ?R13.19 - Other dysphagia (ICD-10) Episodic paroxysmal hemicrania, not intractable ?G44.039 - Episodic paroxysmal hemicrania, not intractable (ICD-10) Eczema ?L30.9 - Dermatitis, unspecified (ICD-10) Hearing loss of both ears ?H91.93 - Unspecified hearing loss, bilateral (ICD-10) Chronic right shoulder pain ?M25.511 - Pain in right shoulder (ICD-10) ?G89.29 - Other chronic pain (ICD-10) Adjustment disorder with depressed mood (~06/2021) ?F43.21 - Adjustment disorder with depressed mood (ICD-10) Dyslipidemia ?E78.5 - Hyperlipidemia, unspecified (ICD-10) Head trauma (08/2023) ?S09.90XA - Unspecified injury of head, initial encounter (ICD-10) Anticoagulated ?Z79.01 - long term care administrator (current) use of anticoagulants (ICD-10) CAD (coronary artery disease) ?I25.10 - Atherosclerotic heart disease of [place] coronary artery without angina pectoris (ICD-10) Atrial fibrillation ?I48.91 - Unspecified atrial fibrillation (ICD-10) Essential tremor ?G25.0 - Essential tremor (ICD-10) Surgical History History of coronary angiogram (01/09/24) ?Z98.890 - Other specified postprocedural states (ICD-10) History of cataract surgery (2021) ?Z98.49 - Cataract extraction status, unspecified eye (ICD-10) History of lumpectomy of both breasts ?Z98.890 - Other specified postprocedural states (ICD-10) History of coronary artery stent placement (2010) ?Z95.5 - Presence of coronary angioplasty implant and graft (ICD-10) History of right mastectomy (07/18/17) ?Z90.11 - Acquired absence of right breast and nipple (ICD-10) Family History Mother Breast cancer, Onset Age: 50 Diabetes Malignant GIST (gastrointestinal stromal tumor), Onset Age: 80 Father Diabetes Heart failure, Onset Age: 86 Brother Cancer with unknown primary site, Onset Age: 58 Social History Narrative: recently, 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, 2 adult children in [facility] Lifetime nonsmoker 5-6 glasses of wine a week No drug use Exercises 50 N 3 times a week What is your current living situation?: I presently have a place to live Problems where you live: no known problems In the past 12 months, utilities in danger of being shut off: no In past 12 months, lack of transportation kept you from medical appts, meetings, work, or getting things needed for daily living: no In the past 12 mos, have been you worried that your food would run out before you had money to buy more?: never true In the past 12 mos, the food you bought just didn't last and you didn't have money to buy more?: never true Smoking Status: Never smoker Do you use any of these nicotine containing products: None Second hand tobacco smoke exposure: No How often do you have a drink containing alcohol: never AUDIT-C Alcohol total score: 0 Non-prescribed substance use: denies use How often does anyone, including family, friends and others, physically hurt you: never How often does anyone, including family, friends and others, insult or talk down to you: never How often does anyone, including family, friends and others, threaten you with harm: never How often does anyone, including family, friends and others, scream or curse at you: never Little interest or pleasure in doing things: not at all Feeling down, depressed, or hopeless: several days service: No Exam Narrative: Exam Narrative: Well-nourished well-developed patient in no acute distress. Alert and oriented. Answers questions appropriately. Mood and affect are appropriate. Thoughts are goal oriented and rational. No tangential or magical thinking noted. Patient speaks in full sentences without needing to catch her breath. HEENT: Normocephalic. Pupils are equally round reactive to light. Extraocular muscles are intact. Conjunctivae are moist without any icterus noted. Moist mucous membranes. Posterior pharynx is normal. Neck is soft. There is no trauma noted to the inside of the mouth. No tenderness to palpation of the cervical spine. She has full range of motion of the neck with flexion, extension, side bending rotation without pain. 1/2 cm laceration just above the right eyebrow. Skin is not gaping open. Cardiovascular: Heart is regular rate and rhythm. Lungs: Clear to auscultation bilaterally. Strength is 5/5 of the upper and lower extremities. Cranial nerves 3-12 are normal. There is no nystagmus either horizontally or vertically. Gait is normal. Patient is able to get in and out of bed without difficulty or assistance. Const: Vital Signs, click to edit/add: Vital Signs - 24 hr 02/17/24 12:51 02/17/24 13:39 02/17/24 13:56 Pulse Rate 62 Pulse Rate [Pulse Oximeter] 68 Respiratory Rate 18 Blood Pressure Blood Pressure [Le ft Upper Arm] 142/86 H Pulse Oximetry 96 96 97 Oxygen Delivery Me thod Room Air 02/17/24 13:57 02/17/24 14:00 02/17/24 14:15 Pulse Rate 66 62 61 Pulse Rate [Pulse Oximeter] Respiratory Rate Blood Pressure 154/90 H Blood Pressure [Le ft Upper Arm] Pulse Oximetry 95 95 97 Oxygen Delivery Me thod 02/17/24 14:30 02/17/24 14:45 02/17/24 15:00 Pulse Rate 64 66 66 Pulse Rate [Pulse Oximeter] Respiratory Rate Blood Pressure Blood Pressure [Le ft Upper Arm] Pulse Oximetry 93 95 95 Oxygen Delivery Me thod 02/17/24 15:15 02/17/24 15:30 02/17/24 15:41 Pulse Rate 64 68 66 Pulse Rate [Pulse Oximeter] Respiratory Rate Blood Pressure 153/79 H Blood Pressure [Le ft Upper Arm] Pulse Oximetry 97 96 97 Oxygen Delivery Me thod Course Course ED Course: Wound was cleaned. We discussed glue versus suturing. Given that the skin does not gape open even with eyebrow movement, I do think that glue would be a perfect option this instance. Patient is in agreement and chooses glue over suturing as well. Therefore that was accomplished. Given that the patient is having pain over the superior orbit and is on Eliquis I do think that facial CT as well as head CT is warranted in this case. Patient is in agreement with this. Unfortunately our CT machine is down and so patient will be monitored here in the ER until we were able to have that test done. Should be in about 3 hours. The other option would be to transfer the patient. However, in the time that it would take to find hospital that would accept her in to transfer her this will likely take approximately 3 hours as well. Patient is given the option to stay or go and patient chooses to wait here, be observed and have the test done. Head and facial CTs were unremarkable. Vital Signs Vital signs: Initial Vital Signs Pulse Rate 68 02/17/24 12:51 Respiratory Rate 18 02/17/24 12:51 Blood Pressure 142/86 H 02/17/24 12:51 Blood Pressure Mean 104 02/17/24 12:51 Blood Pressure Position Sitting 02/17/24 12:51 Pulse Oximetry 96 02/17/24 12:51 Oxygen Delivery Method Room Air 02/17/24 12:51 Vital Signs Pulse Rate 68 02/17/24 12:51 Respiratory Rate 18 02/17/24 12:51 Blood Pressure 142/86 H 02/17/24 12:51 Pulse Oximetry 96 02/17/24 12:51 Oxygen Delivery Method Room Air 02/17/24 12:51 Pulse Rate 66 02/17/24 15:41 Respiratory Rate 18 02/17/24 12:51 Blood Pressure 153/79 H 02/17/24 15:41 Pulse Oximetry 97 02/17/24 15:41 Oxygen Delivery Method Room Air 02/17/24 12:51 Medical Decision Making Imaging Data CT scan - head: Attestation: I have reviewed the pertinent imaging results. Radiologist's impression: TECHNIQUE: Noncontrast CT head. FINDINGS: Mild generalized volume loss. No acute intracranial hemorrhage, acute infarct, mass effect, or fracture. No midline shift. No abnormal ventricular dilatation. Normal calvarium and skull base. Visualized paranasal sinuses mastoid air cells are clear. Visualized orbits are unremarkable. Visualized paranasal sinuses and mastoid air cells are clear. IMPRESSION: 1. No acute intracranial abnormality. 2. Mild generalized cerebral volume loss. CT Facial bones: Attestation: I have reviewed the pertinent imaging results. Radiologist's impression: Noncontrast CT of the facial bones. FINDINGS: No facial fractures. Specifically, the nasal bones, zygomatic arches and bony orbits are intact. Asymmetric mild soft tissue swelling of the right periorbital soft tissues compared to the left. Normal orbits bilaterally. Bilateral globes are intact. No proptosis. No retrobulbar hematoma. No intraconal extraconal mass or lesion. Normal symmetric extra-ocular muscles. Visualized paranasal sinuses and mastoid air cells are clear. Normal soft tissue the visualized suprahyoid neck. IMPRESSION: 1. No facial fractures. 2. Asymmetric mild soft tissue swelling of the right periorbital soft tissues consistent with trauma. Otherwise, normal orbits bilaterally. Discharge Plan Discharge Clinical Impression: Fall, Laceration Patient Disposition: Home, Self-Care Condition: Stable Additional Instructions: Keep wound clean and dry. Do not soak such as taking baths, swimming. Okay to shower like you normally would. Glue will dissolve on its own. Watch for signs and symptoms of infection including increasing redness of the area, purulent drainage, or fever. If this occurs follow-up right away with your doctor or return to the ER. Prescriptions: No Action rosuvastatin 5 mg tablet 5 mg PO QDAY Qty: 90 3RF Rx Instructions: 1 tab daily for cholesterol metoprolol succinate 25 mg tablet extended release 24 hr 25 mg PO BID Qty: 180 3RF anastrozole 1 mg tablet 1 mg PO DAILY nitroglycerin 0.4 mg tablet, sublingual sublingual Eliquis 5 mg tablet 5 mg PO DAILY furosemide 20 mg tablet 20 mg PO DAILY Follow Up/Referrals: Lisa Quinones MD [Primary Care Provider] - Stand Alone Forms: [employer] Info Instructions
== END 2024-02-17 18:22 | disposition home or self-care (01) ==
PROVIDERS: Emergency Provider Family Medicine; PCP Family Medicine
DX: S01.111A Laceration without foreign body of right eyelid and periocular area, initial encounter (principal); W19.XXXA Unspecified fall, initial encounter
CPT/HCPCS: 12001; 70450; 70486; 94761; 99282; 99284

== ENCOUNTER 2024-06-08 10:25 | Outpatient (CLI) | payer MEDICARE, SELFPAY | END 2024-06-08 10:26 | disposition home or self-care (01) | LOC: NFLDREF 16:33 | PROVIDERS: PCP Family Medicine; Referring Provider Family Medicine; Visit Provider Nurse Practitioner Family | DX: Z11.52 Encounter for screening for COVID-19 (principal) | CPT/HCPCS: 87635 ==

== ENCOUNTER 2024-07-21 23:50 | Observation (INO) | payer MEDICARE, SELFPAY ==
--- OUTSIDE RECORDS SUMMARY | 2024-07-21 23:53 | XMS_ITS | Clinical Summary ---
[facility] [address] [place] [address] Care Team Providers Care Carbon Printer Name Role Phone Memo Matos MD Primary Care Provider Unavailab le Source Comments You are receiving this document as you are listed as the primary care provider,follow-up provider, or the patient has been referred to you for consultation.This is in compliance with the Medicare andMedicaid EHR Incentive Program,which states Providers who transition their patient to another setting of careor provider of care or refers their patient to another provider of care shouldprovide summary care record for each transition of care or referral. [email or web address] Allergies Active Allergy Reactions Criticality Noted Date [...] mouth every 8 hours as needed. Active nitroglycerin (NITROSTAT) 0.4 MG sublingual tabletIndications:Oth er chest pain DISSOLVE 1 TABLET UNDER TONGUE NEEDED FOR CHEST PAIN. MAY REPEAT EVERY 5 MINUTES FOR A MAXIMUM OF 3 DOSES. 25 Tablet 01/20/2023 Active metoprolol succinate (TOPROL XL) 25 MG 24 hour release tablet take 1 tablet by mouth twice daily. 180 Tablet 03/29/2024 Active ELIQUIS 5 MG tabletIndications:Par oxysmal atrial fibrillation (HRC) TAKE 1 TABLET(5 MG) BY MOUTH TWICE DAILY 180 Tablet 03/23/2024 Active Active Problems Problem Noted Date Diagnosed [...] 2 Overview (11/13/2020): Chest Right History of [place] (myocardial infarction) 11/13/2020 10/31/2021 Impingement syndrome, shoulder, left 05/16/2019 10/31/2021 Chronic left shoulder pain 05/14/2019 0 10/31/2021 Malignant neoplasm of upper- outer quadrant of right breast in female, estrogen receptor positive 06/20/2017 02/08/2019 Overview (04/15/2019): Right Breast CA, invasive ductal (IDC), grade III/III, mixed with DCIS (G3, solid/ cribriform), dx 06/19/2017. AJCC stage IIA (pT2 N0 M0). ER/ RI +ve (99 & 86%), HER2 IHC -ve [...] bone and cartilage 05/04/2009 08/12/2017 Overview: Osteopenia Immunizations Name Administration Dates Next Due Td [...] 68 02/03/2023 8:25 AM CDT Temperature 36.9 C (98.5 F) 02/03/2023 8:25 AM CDT Respiratory Rate 18 05/29/2022 10:39 AM DIAPHRAGM BUILDER Oxygen Saturation 97% 01/02/2023 8:31 AM CDT Inhaled Oxygen Concentration - - Weight 73 kg (161 lb) 02/03/2023 8:25 AM CDT Height 148 cm (4' 10.27) 12/03/2022 10:29 AM CD T Body Mass Index 33.34 12/03/2022 10:29 AM CDT Plan of Treatment Health Maintenance Due Date Last Done Comments Zoster/Shingles (1 of 2) 11/17/1993 Pneumococcal 65+ Yrs (1 - PCV) 11/17/2008 RSV (1 - 1-dose 75+ series) 11/17/2018 COVID-19 Vaccine (1 - 2023- season) 2024 Influenza (#1) 2024 Medicare Annual Wellness Visit 06/16/2024 12/03/2022, 12/04/2021, 11/07/2020, Additional history exists DTaP/Tdap/Td [...] a 72-year-old female with Low bone density-osteopenia - 733.90 FINDINGS Bone mineral density study was performed using the [employer] Horizon Wi ([id number]). The results of the study expressed as [...] T-score -2.6 or below, WITH a fragility fracture [...] WHO FRAX algorithm. MEMO MATOS MD .................... 10/13/2018 Procedure Note Memo Matos MD - 02/04/2019 DEXA BONE MINERAL DENSITY STUDY CLINICAL INDICATIONS: The patient is a 72-year-old female with Low bonedensity-osteopenia - 733.90 FINDINGS Bone mineral density study was performed using the [employer] Wi ([id number]). The results of the study expressed as [...] 10/15/2018 at 11:19 AM CDTPatient informedAmborly Lizama DEAN OF FACULTY........10/15/2018 11:19 AM------Notes recorded by Memo Matos MD [...] 9:30 AM 04/28/2014 6:25 AM Care Teams Carbon Printer Relationship Specialty Start Date End Date Memo Matos MD PCP - General 01/08/11
--- OUTSIDE RECORDS SUMMARY | 2024-07-21 23:53 | XMS_ITS | Encounter Summary ---
Author Organization [facility] Address [address] [place] [address] Care Team Providers Care Integration Software Developer Name Role Phone Unassigned, Pcp Primary Care Provider Unavailabl e Reason for Visit * Reason Onset Date Comments COVID Treatment Review 06/08/2024 Encounter Details Date Type Department Care Team (Latest Contact Info) Description 06/08/2024 Clinical Communication Department of Family Medicine, [facility] in [place], [place] [address] [place] [id number] Melvin Espana, R.N. COVID Treatment Review Social History Tobacco Use Types Packs/Day Years Used Date Smoking Tobacco: Never Passive Smoke Exposure: Never Smokeless Tobacco: Never Alcohol Use Standard Drinks/Week Comments Yes 3 (1 standard drink = 0.6 oz pur e alcohol) [facility] Utilities Answer Date Recorded In the past 12 months has e electric, gas, oil, or water company threatened to shut off services in your home? No 05/31/2024 PHQ-2 Answer Date Recorded PHQ-2 Score 0 05/18/2024 Exercise Vital Sign Answer Date Recorde d On average, how many days pe r week do you engage in moderate to strenuous exercise (like a brisk walk)? 1 day 05/31/2024 On average, how many minutes do you engage in exercise at this level? 10 min 05/31/2024 Hunger Vital Sign Answer Date Recorded Within the past 12 months, y ou worried that your food would run out before you got the money to buy more. Never true 05/31/20 Within the past 12 months, t he food you bought just didn't last and you didn't have money to get more. Never true 05/31/2024 PRAPARE - Transportation Answer Date Re corded In the past 12 months, has l ack of transportation kept you from medical appointments or from getting medications? No 05/16 In the past 12 months, has l ack of transportation kept you from meetings, work, or from getting things needed for daily living? No 05/31/2024 Nutrition Answer Date Recorded On average, how many serving s of fruits and vegetables do you eat per day (serving size is equal to 1 cup or approximately the size of a tennis ball)? 3-5 05/31/2024 Dental Answer Date Recorded Dental: Regular Dentist Yes 05/31/20 Employment Answer Date Recorded Employment status Retired 05/31/2024 Housing Stability Answer Date Recorded What is your living situation today? I [facility] live 05/31/2024 Comments No Sex and Gender Information Value Date Recorded Sex Assigned at Female 05/31/2024 7:25 PM EAR SPECIALIST Legal Sex Female 12:20 PM CDT Gender Identity Female 05/31/2024 7:25 PM EAR SPECIALIST Sexual Orientation Straight 05/31/2024 7: 25 PM EAR SPECIALIST documented as of this encounter Miscellaneous Notes * Telephone Encounter - Melvin Espana R.N. - 06/08/2024 11:46 AM CST [facility] Team Evaluation Reason for Call Patient was contacted regarding a recent positive test result for COVID-19. Patient is interested in being considered for treatment for COVID-19. Subjective Patient is currently having symptoms. Symptoms started within the last 5 days. Date of onset is 06-06-2024. Current symptoms include: body aches, chills, cough (non-productive) , congestion , decreased appetite, fever, generalized weakness, headache, and lightheadedness Objective Covid MASS Score: 9 Covid CAST Score: 6 Most recent GFR(last year): Lab Results Component Value Date/Time Estimated GFR (eGFR) 78 05/18/2024 02:28 PM Medication Review Medications to Take Different with Paxlovid: Apixaban (Eliquis) and Rosuvastatin Education Treatment Review: Paxlovid Paxlovid is an oral medication that stops the replication of the virus that causes COVID-19 and hasbeen shown to reduce the risk of hospitalization by 87%. Side effects that have been reported include abnormal taste, GI upset, and muscle aches. Serious reactions such as allergic reactions and liver failure are extremely uncommon. Patient instructed to contact their health care provider right away if they experience side effects. Patient instructed to take Paxlovid for 5 days. Given directions to coal picker and start the medication within 5 days of symptom onset. Isolation Instructed patient to stay home from work, school, or daycare until your symptoms are getting better overall AND fever free for 24 hours without the use of fever reducing medications. Continue to wear a face mask for 5 additional days (10 days if considered immunocompromised). When to seek emergency care: Instructed patient to seek emergency medical attention if experiencing severe symptoms. Severe symptoms may include new or increasing oxygen requirements, shortness of breath at rest, shortness of breath that limits walking short distances, chest pain (such as retrosternal or left sided chest pain,pain that radiates to the jaw or arm), and dizziness or lightheadedness that causes unsteadiness orinability to stand or walk. Plan Treatment/Monitoring Decisions: Paxlovid full dosing (eGFR 60 ml/min or more) Patient instructed toHOLD Rosuvastatin for 8 days while taking Paxlovid. Day 1 is the first day taking Paxlovid. Reduce Apixaban (Eliquis) dose to 2.5 mg, twice/day for 8 days. Resume full dose as prescribed on day 9. .,Patient instructed to contact their insurance regarding costs of the medication. The patient could consider enrolling in the Paxlovid Co-Pay Program at [email or web address].PricePanda if needed. , and The prescription(s) has been sent to [facility] Disposition/Recommendation:?Self-care as appropriate. Patient instructed to call [facility] at [phone] with any treatment questions or concerns. Instructed patient to contact primary care provider for questions regarding symptom management. Response to Education:?patient/caller able to teach back The following references were used: Nursing or provider judgement, [facility] workflow(s), guidelines, and protocols, [facility] Protocols.? . SPECIALIST documented in this encounter Plan of Treatment Not on file documented as of this encounter Visit Diagnoses Diagnosis COVID-19 Infection- Primary documented in this encounter Additional Health Concerns Infection Onset Date Last Indicated Resolved Time COVID19 06/07/2024 06/07/2024 06/27/2024 5:48 AM EAR SPECIALIST documented as of this encounter Care Teams Integration Software Developer Relationship Specialty Start Date End Date Unassigned, Pcp PCP - General Family Medicine 05/18/24 documented as of this encounter
--- OUTSIDE RECORDS SUMMARY | 2024-07-21 23:53 | XMS_ITS | Continuity of Care Document ---
Author Organization [facility] Address [address] [facility] [address] [place] [address] Phone Care Team Providers Care Cruise Coordinator Name Role Phone MAXIMILIANO SIDDIQUI OD Unavailable [...] on Encounter [facility], [address], [facility] [place], [place], [id number] , [place] tel:[phone] [facility] a post op exam (chief complaint) Presence of intraocular lens 3 CHEN VIERA. [address], [address], [facility] [place], [place], [id number] . tel:+ [phone] [facility], [address], [facility] [place] [place], [id number] , [place] tel: [phone] [facility] No Information 3 ALEC DIEGO. [address], [address], [place], [place], [address] . tel:[phone] Referring Provider: JOHNATHON Queen MD, [address] [facility] [address], [place], [address] . tel:[phone] [facility], [address] [facility] [address], [facility] [place], [address] , [place] tel:[phone] [facility] a comprehensive exam (chief complaint) Other secondary cataract, left eyeAge-relate d nuclear cataract, right eye Aug-3 3 ALEC DIEGO. [address], [address], [facility] [place], [address] . tel:[phone] [facility], [address], [facility] [place], [address] , [place] tel:[phone] [facility] a post op exam (chief complaint) Presence of intraocular lens 2 ALEC DIEGO. [address] [place] [address] [address], [address], [place], [place], [id number] . tel: [phone] [facility], [address], [place], [address] , [place] tel: [phone] [facility] a post op exam (chief complaint) Presence of intraocular lens 2 MERCK JOHNATHON. [address] [place] [address], [address], [place], [place], [address] . tel: [phone] [facility], [facility] [facility] [address], [place], [address] , [place] tel: [phone] [facility] a post op exam (chief complaint) Presence of intraocular lens 2 MERCK JOHNATHON. [address] [place] [address], [address], [place], [id number] . tel: [phone] [facility], [address] [place] [address] [address], [facility] [place] [address] , [place] tel: [phone] [facility] a post op exam (chief complaint) Presence of intraocular lens 2 MERCK JOHNATHON. [address] [place] [address], [address], [facility] [place], [address] . tel: [phone] [facility], [address] [place], [place] [address], [facility] [place] [address] , [place] tel: [phone] [facility] No Information 2 MERCK JOHNATHON. [address] [place] [address], [address], [facility] [place] [id number] . tel: [phone] Referring Provider: JOHNATHON Queen MD, [address] [place] [address] [address], [place], [address] . tel:[phone] [facility], [address] [place], [place] [address], [place], [address] , [place] tel: [phone] [facility] testing only (chief complaint) Age-related nuclear cataract, bilateral 2 MERCK JOHNATHON. [address], [address], [place], [place], [address] . tel: [phone] Referring Provider: JOHNATHON Queen MD, [address], [place], [address] . tel:[phone] [facility], [address] [facility] [address], [place], [address] , [place] tel: [phone] [facility] a comprehensive exam (chief complaint) Age-related nuclear cataract, bilateral Dec-0 7- 1 ALEC DIEGO. [address], [address], [place], [address] . tel: [phone] [facility], [address] [facility] [address], [place], [address] , [place] tel: [phone] [facility] a comprehensive exam (chief complaint) Contusion of right eyelid and periocular area, initial encounterAge- related nuclear cataract, bilateral Feb-0 9 ALEC DIEGO. [address] [facility], [address], [place], [address] . tel: [phone] [facility], [address] [facility] [address], [place], [address] , [place] tel: [phone] [facility] an intermediate exam (chief complaint) Age-related nuclear cataract, bilateral Jul-0 7 ALEC DIEGO. [address], [address], [place], [id number] . tel: [phone] [facility], [address] [facility] [address], [place], [address] , [place] tel: [phone] [facility] a comprehensive exam (chief complaint) Age-related nuclear cataract, bilateral Antolin-0 9-201 7 ALEC DIEGO. [address], [address], [place], [address] . tel: [phone] [facility], [address] [facility] [address], [place], [address] , [place] tel:+ [phone] [facility] a comprehensive exam (chief complaint) Cataract, Nuclear 4 ALEC DIEGO. [address], [address], [place], [address] . tel: [phone] [facility], [address], [place], [address] , [place] tel: [phone] [facility] Vitreous degeneration 3 [facility]. [address], [address], [place], [address] . tel: [phone] [facility], [address], [place], [address] , [place] tel: [phone] [facility] Cataract, Nuclear 3 ALEC DIEGO. [address], [address], [place], [address] . tel: [phone] [facility], [address] [facility] [address], [place], [address] , [place] tel: [phone] [facility] Senile nuclear sclerosis 2 ALEC DIEGO. [address] [facility], [address], [place], [address] . tel: [phone] Family History Family Member Type Diagnosis Age At Onset Father Problem (finding) diabetes mellitus type 2 Mother Problem (finding) diabetes mellitus type 2 Father Problem (finding) cataract Payers Payer name Insurance type Covered democrat ID Authoriza tialessia(s) [facility] C[facility] EXEMPT CI [id number] Social History Type Description Quantity Date Captured [...] Information Instructions Date Instruction Additional Infor mation - New glasses prescr iption given, slight vision change only (optional change). Educational materials provided: refractive error. Related to Presence of intraocular lens - Return in 1 year w ith [...] elated to Presence of intraocular lens - Return [...] ated to Age-related nuclear cataract, bilateral - Dispense manifest refraction w /add. Related to Age-related nuclear cataract, bilateral - Return in [address] Michael for Complete Exam/Dilated. Related to Age-related nuclear cataract, bilateral - Dispense manifest refraction w /add. Related to Cataract, Nuclear - Return in [address] Michael for Complete Exam/Dilated. Related to Cataract, Nuclear Vitreous degeneratio n, left eye, without retinal [...] for Complete Exam. Related to Vitreous Detachment Non-disabling catara ct OU. - Observation. Intervention [...] Continue present management. Related to Cataract, Nuclear - Return in [address] Michael for Complete Exam, Dilated Exam and Scheduling. Related to Cataract, Nuclear Assessments Type Assessment Date assessment Presence of intraocular lens Sep Patient Care Teams Name Effective Dates (start - stop) Status Members No Information
--- OUTSIDE RECORDS SUMMARY | 2024-07-21 23:53 | XMS_ITS | Clinical Summary ---
Author Organization [facility] Address [address] [place] [address] Care Team Providers Care Acoustical Tile Patternmaker Name Role Phone Unassigned, Pcp Primary Care Provider Unavailabl e Source Comments Patient records contain information from all sites at [facility]. For routine questions regarding patient records, call [phone] during business hours, M-F 8:00 AM - 5:00 PM Central Time. Record requests for emergency care only can be directed to [phone] at any time.[facility] Allergies Active Allergy Reactions Criticality Noted Date Comments Codeine Nausea And Vomiting,GI intolerance High 12/27/2010 Nausea/vomiting Nitrofurantoin Monohyd/M-Cryst Rash 06/01/2024 Morphine GI intolerance 10/18/2015 Penicillins Hives (Reselect Reaction),Rash Low 12/27/2010 Medications ACETAMINOPHEN EXTRA STRENGTH ORAL Take 1,300 mg by mouth every 8 (eight) hours as needed. Active anastrozole (Arimidex) 1 mg tablet Take 1 mg by mouth. 3 Active multivitamin tablet Take 1 tablet by mouth. Active nitroglycerin (Nitrostat) 0.[address] under the tongue every 5 (five) minutes as needed. 3 Active cholecalciferol (Vitamin D3) 25 mcg (1,000 Unit) capsule Take 1 capsule by mouth daily. 9 Active loperamide (Imodium A-D) 2 mg capsule 4 (four) times a day as needed. 3 Active apixaban (Eliquis) 5 mg tabletIndications :Atrial Fibrillation Paroxysmal (HCC) Take 1 tablet (5 mg total) by mouth 2 (two) times a day. 180 tablet 3 4 05/18/20 25 Active furosemide (Lasix) 20 mg tabletIndications :Atherosclerotic Heart Disease Of [place] Coronary Artery Without Angina Pectoris Take 1 tablet (20 mg total) by mouth daily as needed (leg swelling). States when legs are swollen 90 tablet 2 4 Active metoprolol succinate (Toprol XL) 25 mg 24 hr tabletIndications :Atherosclerotic Heart Disease Of [place] Coronary Artery Without Angina Pectoris Take 1 tablet (25 mg total) by mouth daily. 90 tablet 3 4 05/18/20 25 Active rosuvastatin (Crestor) 5 mg tabletIndications :Dyslipidemia Take 1 tablet (5 mg total) by mouth daily. 30 tablet 1 4 Active Active Problems Problem Noted Date Diagnosed Date Diverticulosis 05/18/2024 Overview (05/18/2024): [facility] 12/04/20 Colonoscopy: Extensive descending/sigmoid diverticulosis. Dyslipidemia 05/18/2024 Overview (05/18/2024): Rosuvastatin 5 mg started 11/2023 Osteopenia 05/18/2024 Overview (05/18/2024): osteopenia 2022 - [place] inst[facility] monitors [facility] 10/13/18 DEXA lowest T-score AP Spine -1.4. 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 Edema Localized 03/29/2015 Overview (05/18/2024): dependant Atherosclerotic Heart Diseas e Of [place] Coronary Artery Without Angina Pectoris 12/31/2010 Overview (05/18/2024): - Stenting to first diagonal 12/28/2010 - 11/03/23 CCTA: 1. Approximate 70% stenosis of the ostial RCA. 2. Moderate in stent restenosis of the D1 stent distally . - Gastroesophageal Reflux Disease NOS 06/21/2010 Encounters Date Type Department Care Team Description 06/08/2024 Clinical Communication Department of Family Medicine, [facility] in [address] [address] Melvin Espana R.N. COVID Treatment Review 06/08/2024 Clinical Communication Department of [facility], [facility], [address] [address] Mike Scott M.BKaitlynnBKaitlynnSKaitlynn, MDewey External Lab Entry 06/01/2024 11:00 AM RN ADVANCED Office Visit Department of [facility], [address] [address] Mike Scott M.BKaitlynnBKaitlynnSKaitlynn MDewey History Of Falling (Primary Dx); Atherosclerotic Heart Disease Of [place] Coronary Artery Without Angina Pectoris; Hypertension Essential Primary; PreDiabetes; Dyslipidemia 05/19/2024 Clinical Communication Department of [facility], [facility], [address] [address] Mike Scott M.B.B.SKaitlynn, M.D. Results 05/18/2024 2:22 PM RN ADVANCED - 05/18/2024 11:59 PM RN ADVANCED Hospital Encounter Department of Laboratory Medicine in [address] [address] Mike Scott M.B.B.S., M.D. Dysuria Discharge Disposition: Home or Self Care 05/18/2024 2:20 PM RN ADVANCED - 05/18/2024 2:21 PM RN ADVANCED Hospital Encounter Department of Laboratory Medicine in [address] [address] Mike Scott M.B.B.S., M.D. Dyslipidemia; PreDiabetes; Atherosclerotic Heart Disease Of [place] Coronary Artery Without Angina Pectoris; Hypertension Essential Primary; Deficiency Vitamin D Discharge Disposition: Home or Self Care 05/18/2024 1:30 PM RN ADVANCED Office Visit Department of Family Medicine, [facility], in [address] [address] Mike Scott M.B.B.S., M.D. Atherosclerotic Heart Disease Of [place] Coronary Artery Without Angina Pectoris (Primary Dx); Atrial Fibrillation Paroxysmal (HCC); Hypertension Essential Primary; PreDiabetes; Dyslipidemia; Dysuria; Deficiency Vitamin D from Last 3 Months Immunizations Immunization Administration Dates Next Due Td Preservative Free (TENIVAC, DECAVAC) 04/09/20 05 Tdap 02/15/2019 Social History Tobacco Use Types Packs/Day Years Used Date Smoking Tobacco: Never Passive Smoke Exposure: Never Smokeless Tobacco: Never Tobacco Cessation:Counseling Given: Not Answered Alcohol Use Standard Drinks/Week Comments Yes 3 (1 standard drink = 0.6 oz pur e alcohol) [facility] Utilities Answer Date Recorded In the past 12 months has [email or web address] gas, oil, or water [employer] threatened to shut off services in your [...] your living situation today? I have a [facility] place to live 05/31/2024 Comments No Sex and Gender Information Value Date Recorded Sex Assigned at Female 05/31/2024 7:25 PM RN ADVANCED Legal Sex Female 12:20 PM CDT Gender Identity Female 05/31/2024 7:25 PM RN ADVANCED Sexual Orientation Straight 05/31/2024 7: 25 PM RN ADVANCED Last Filed Vital Signs Vital Sign Reading Time Taken Comments Blood Pressure 119/77 06/01/2024 10:54 AM RN ADVANCED Pulse 69 06/01/2024 10:54 AM RN ADVANCED Temperature 36.4 C (97.5 F) 06/01/2024 10:54 AM RN ADVANCED Respiratory Rate 20 06/01/2024 10:5 4 AM RN ADVANCED Oxygen Saturation - - Inhaled Oxygen Concentration - - Weight 74.3 kg (163 lb 12.8 oz) 024 10:54 AM RN ADVANCED Height 150 cm (4' 11.06) 06/01/2024 10 :54 AM RN ADVANCED Body Mass Index 33.02 06/01/2024 10:54 AM RN ADVANCED Plan of Treatment Health Maintenance Due Date Last Done Comments COVID-19 Vaccine (#1) 11/17/1950 Pneumococcal vaccine (50+ years) (1 of 2 - PCV) 11/17/1962 Zoster Vaccines (1 of 2) 11/17/1993 RSV vaccine - (32-36 weeks) or 60+ years (1 - 1-dose 75+ series) 11/17/2018 Influenza Vaccine (#1) 2024 Depression Screening (Annual PHQ-2) 06/16/2024 Fall Risk Screen (Annual) 06/16/2024 Creatinine Level (Kidney Function Test) 05/20/2025 05/20/2024, 05/18/2024, 01/09/2024, Additional history exists Fasting Glucose for Diabetes Screening 05/20/2025 05/20/2024, 05/18/2024, 05/18/2024, Additional history exists Potassium Level 05/20/2025 05/20/2024, 12/0 08/2023, 01/09/2024, Additional history exists Sodium Level 05/20/2025 05/20/2024, 12/0 08/2023, 01/09/2024, Additional history exists Office Visit for Blood Pressure Check / Re-check 06/01/2025 06/01/2024 DTaP,Tdap,and Td Vaccines (2 - Td or Tdap) 02/15/2029 02/15/2019, 04/09/2005 IPV Vaccines Aged Out No longer eligi ble based on patient's age to complete this topic Procedures Procedure Name Priority Date/Time Associated Diagnosis Comments EXTM HOME SARS CORONAVIRUS-2 (COVID-19) ANTIGEN, V Routine 06/07/2024 1:00 PM RN ADVANCED VITAMIN D, IMMUNOASSAY, TOTAL, S Routine 05/18/2024 2:28 PM RN ADVANCED Deficiency Vitamin D COMPREHENSIVE METABOLIC PANEL, S/P Routine 05/18/2024 2:28 PM RN ADVANCED Atherosclerotic Heart Disease Of [place] Coronary Artery Without Angina Pectoris Hypertension Essential Primary CBC WITH DIFFERENTIAL, B Routine 05/18/2024 2:28 PM RN ADVANCED Atherosclerotic Heart Disease Of [place] Coronary Artery Without Angina Pectoris Hypertension Essential Primary HEMOGLOBIN A1C, B Routine 05/18/2024 2:2 8 PM RN ADVANCED PreDiabetes LIPID PANEL, S Routine 05/18/2024 2:28 PM RN ADVANCED Dyslipidemia OH URINALYSIS AUTO W MICRO Routine 05/18/2024 2:25 PM RN ADVANCED URINALYSIS WITH MICROSCOPIC IF INDICATED, U Routine 05/18/2024 2:25 PM RN ADVANCED Dysuria from Last 3 Months Results * (ABNORMAL) EXT Home SARS Coronavirus-2 (COVID-19) Antigen (06/07/2024 1:00 PM RN ADVANCED) EXT Home SARS-CoV-2 Antigen Presumptive Positive(A) Presumptive Negative HOME RESULTS Swab 06/07/2024 1:00 PM RN ADVANCED us Historical Provider LAB MICROBIOLOGY - GENERAL O RDERABLES Final Result HOME RESULTS * (ABNORMAL) Lipid Panel (05/18/2024 2:28 PM RN ADVANCED) Triglycerides 131 mg/dL 05/18/2024 6:21 PM RN ADVANCED OWAT Comment: ----REFERENCE VALUE---- Normal: <150 mg/dL Borderline High: 150-199 mg/dL High: 200-499 mg/dL Very High: > or =500 mg/dL Cholesterol, Total 239(H) mg/dL 2023 6:21 PM RN ADVANCED OWAT Comment: ----REFERENCE VALUE---- Desirable: < 200 mg/dL Borderline High: 200 - 239 mg/dL High: > or = 240 mg/dL Cholesterol, LDL, Calculated 145(H) mg/dL 05/18/2024 6:21 PM RN ADVANCED OWAT Comment: ----REFERENCE VALUE---- Desirable: <100 mg/dL Above Desirable: 100-129 mg/dL Borderline High: 130-159 mg/dL High: 160-189 mg/dL Very High: >=190 mg/dL ----ADDITIONAL INFORMATION---- LDL cholesterol calculated using the Baxter/NIH equation. Cholesterol, HDL 71 >=50 mg/dL 05/18/20 6:21 PM RN ADVANCED OWAT Cholesterol, Non-HDL, Calculated 168(H) mg/dL 05/18/2024 6:21 PM RN ADVANCED OWAT Comment: ----REFERENCE VALUE---- Desirable: <130 mg/dL Above Desirable: 130-159 mg/dL Borderline High: 160-189 mg/dL High: 190-219 mg/dL Very High: > or =220 mg/dL Fasting (8 HR or more) No 05/18/2024 2:28 PM RN ADVANCED OWAT Blood (Blood, Venous) 05/18/2024 2:28 PM RN ADVANCED 05/18/2024 5:51 PM RN ADVANCED Mike Freeman M.D. LAB BLOOD ADD-O N Final Result Performing Organization Address [facility] Co de Phone Number [facility] [address] [place] [address], [facility] OWAT [facility] [place] [address] [place] [address] * Vitamin D, Immunoassay, Total, Serum (05/18/2024 2:28 PM RN ADVANCED) Pathologist [facility] Vitamin D, Immunoassay, Total, S 42 20 - 80 ng/mL 05/18/2024 7:45 PM RN ADVANCED TO Comment: Optimum levels within the healthy population are 20-50, patients with bone disease may benefit from high levels within this range Blood (Blood, Venous) 05/18/2024 2:28 PM RN ADVANCED 05/18/2024 7:03 PM RN ADVANCED Mike Freeman M.D. LAB BLOOD ADD-O N Final Result Performing Organization Address [facility]/ZIP Co de Phone Number [facility] [address] [place] [address], [facility] [place] [place] [address] [place] [address] * CBC with Differential, Blood (05/18/2024 2:28 PM RN ADVANCED) Hemoglobin 14.2 11.6 - 15.0 g/dL 05/18/2024 2:41 PM RN ADVANCED FB60 Hematocrit 43.8 35.5 - 44.9 % 05/18/2024 2:41 PM RN ADVANCED FB60 Erythrocytes 4.54 3.92 - 5.13 x10(12)/L 05/18/2024 2:41 PM RN ADVANCED FB60 MCV 96.5 78.2 - 97.9 fL 05/18/2024 2:41 PM RN ADVANCED FB60 RBC Distrib Width 14.0 12.2 - 16.1 % 05/18/2024 2:41 PM RN ADVANCED FB60 Platelet Count 193 157 - 371 x10(9)/L 05/18/2024 2:41 PM RN ADVANCED FB60 Leukocytes 5.7 3.4 - 9.6 x10(9)/L 05/18/2024 2:41 PM RN ADVANCED FB60 Neutrophils 3.30 1.56 - 6.45 x10(9)/L 05/18/2024 2:41 PM RN ADVANCED FB60 Lymphocytes 1.63 0.95 - 3.07 x10(9)/L 05/18/2024 2:41 PM RN ADVANCED FB60 Monocytes 0.52 0.26 - 0.81 x10(9)/L 05/18/2024 2:41 PM RN ADVANCED FB60 Eosinophils 0.18 0.03 - 0.48 x10(9)/L 05/18/2024 2:41 PM RN ADVANCED FB60 Basophils <0.04 0.01 - 0.08 x10(9)/L 05/18/2024 2:41 PM RN ADVANCED FB60 Blood (Blood, Venous) 05/18/2024 2:28 PM RN ADVANCED 05/18/2024 2:30 PM RN ADVANCED us Mike Freeman M.D. LAB BLOOD ADD-O N Final Result [facility] [address] [place] [address], [place] FB60 [facility] [place] [address] [place] [address] * (ABNORMAL) Hemoglobin A1c (05/18/2024 2:28 PM RN ADVANCED) Pathologist [facility] Hemoglobin A1c, B 5.9(H) 4.2 - 5.6 % 05/18/2024 6:20 PM RN ADVANCED OWAT Comment: Hemoglobin A1c values of 5.7-6.4 percent indicate an increased risk for developing diabetes mellitus. In diabetic patients, HbA1c goals should be discussed with healthcare provider. Blood (Blood, Venous) 05/18/2024 2:28 PM RN ADVANCED 05/18/2024 5:51 PM RN ADVANCED Mike Freeman M.D. LAB BLOOD ADD-O N Final Result [facility] [address] [place] [address], [facility] OWAT [facility] [place] [address] [place] [address] * Comprehensive Metabolic Panel (05/18/2024 2:28 PM RN ADVANCED) Pathologist [facility] Potassium, P 3.9 3.6 - 5.2 mmol/L 05/18/2024 6:21 PM RN ADVANCED OWAT Sodium, P 142 135 - 145 mmol/L 05/18/2024 6:21 PM RN ADVANCED OWAT Chloride, P 103 98 - 107 mmol/L 05/18/2024 6:21 PM RN ADVANCED OWAT Bicarbonate, P 29 22 - 29 mmol/L 05/18/2024 6:21 PM RN ADVANCED OWAT Anion Gap, P 10 7 - 15 05/18/2024 6:21 PM RN ADVANCED OWAT BUN (Blood Urea Nitrogen), P 13 6 - 21 mg/dL 05/18/2024 6:21 PM RN ADVANCED OWAT Creatinine 0.77 0.59 - 1.04 mg/dL 05/18/2024 6:21 PM RN ADVANCED OWAT Estimated GFR (eGFR) 78 >=60 mL/min/BS A 05/18/2024 6:21 PM RN ADVANCED OWAT Comment: Estimated GFR calculated using the 2020 CKD_EPI creatinine equation. Calcium, Total, P 9.5 8.8 - 10.2 mg/dL 05/18/2024 6:21 PM RN ADVANCED OWAT Glucose, P 109 70 - 140 mg/dL 05/18/2024 6:21 PM RN ADVANCED OWAT Protein, Total, P 7.2 6.3 - 7.9 g/dL 05/18/2024 6:21 PM RN ADVANCED OWAT Albumin, P 4.3 3.5 - 5.0 g/dL 05/18/2024 6:21 PM RN ADVANCED OWAT Aspartate Aminotransferase (AST), P 19 8 - 43 U/L 05/18/2024 6:21 PM RN ADVANCED OWAT Alkaline Phosphatase, P 83 35 - 104 U/L 05/18/2024 6:21 PM RN ADVANCED OWAT Alanine Aminotransferase (ALT), P 16 7 - 45 U/L 05/18/2024 6:21 PM RN ADVANCED OWAT Bilirubin, Total, P 0.2 0.0 - 1.2 mg/dL 05/18/2024 6:21 PM RN ADVANCED OWAT Blood (Blood, Venous) 05/18/2024 2:28 PM RN ADVANCED 05/18/2024 5:51 PM RN ADVANCED Mike Freeman M.D. LAB BLOOD ADD-O N Final Result [facility] [address] [place] [address], [place] OWAT [facility] [place] [address] [place] [address] * (ABNORMAL) Urinalysis with Microscopic if Indicated (05/18/2024 2:25 PM RN ADVANCED) Source Urine, Urine, Midstream 05/18/2024 2:34 PM RN ADVANCED FB60 Clarity Clear Clear 05/18/2024 2:39 PM RN ADVANCED FB60 Color Yellow 05/18/2024 2:39 PM RN ADVANCED FB60 Comment: ----REFERENCE VALUE---- Colorless Yellow Crystal Blood Trace(A) Negative 05/18/2024 2:39 PM RN ADVANCED FB60 Nitrite Negative Negative 05/18/2024 2:39 PM RN ADVANCED FB60 Leukocyte Esterase Trace(A) Negative 05/18/2024 2:39 PM RN ADVANCED FB60 Protein Negative mg/dL 05/18/2024 2:39 PM RN ADVANCED FB60 Comment: ----REFERENCE VALUE---- Negative Trace Glucose Negative Negative mg/dL 05/18/2024 2:39 PM RN ADVANCED FB60 Ketones, QI(U) Negative Negative mg/dL 05/18/2024 2:39 PM RN ADVANCED FB60 Bilirubin Negative Negative 05/18/2024 2:39 PM RN ADVANCED FB60 pH 6.0 5.0 - 8.0 05/18/2024 2:39 PM RN ADVANCED FB60 Specific [place] >=1.030 1.001 - 1.035 05/18/2024 2:39 PM RN ADVANCED FB60 Urobilinogen 0.2 0.2 - 1.0 mg/dL 05/18/2024 2:39 PM RN ADVANCED FB60 Urine (Urine, Midstream) 05/18/2024 2:25 PM RN ADVANCED 05/18/2024 2:32 PM RN ADVANCED us Mike Freeman M.D. LAB URINE ORDER JEWELS Final Result Performing Organization Address City/State/[facility] Co de Phone Number [facility] [address] [place] [address], [facility] FB60 [facility] [place] [address] [place] [address] * (ABNORMAL) Microscopic Manual (05/18/2024 2:25 PM RN ADVANCED) White Blood Cells 11-20(A) /hpf 05/18/2024 2:54 PM RN ADVANCED FB60 Comment: ----REFERENCE VALUE---- Males: 0-3 Females: 0-10 Unknown: 0-10 Red Blood Cells None Seen 0 - 2 /hpf 05/18/2024 2:54 PM RN ADVANCED FB60 Squamous Cells Occ-3 /hpf 05/18/2024 2:54 PM RN ADVANCED FB60 Urine 05/18/2024 2:25 PM RN ADVANCED 05/18/2024 2:32 PM RN ADVANCED us Mike Freeman M.D. LAB URINE ORDER JEWELS Final Result [facility] [address] [place] [address], [place] FB60 [facility] [place] [address] [place] [address] from Last 3 Months Insurance [facility] Care Teams Acoustical Tile Patternmaker Relationship Specialty Start Date End Date Unassigned, Pcp PCP - General Family Medicine 05/18/24
--- OUTSIDE RECORDS SUMMARY | 2024-07-21 23:53 | XMS_ITS | Continuity of Care Document ---
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 Role Phone [facility] Unavailable Taylor vailable Procedures Procedure Date YAG LASER POST CAPSULOTOMY ECCE W/IOL Inj Phenylephrine Ketorolac RELACS Advance Directives Directive Yes / No Effective Date File Name No Information Encounters Encounter Description Practice Location Reason(s) For Visit Diagnoses Date Provider Providers Copied on Encounter [facility], [address] [place], [place] [address]O [address], [id number], tel:[phone] [facility] No Information SUR[facility]. [address] [place] [address], [address] [place] [address], [address]. tel:[phone] Referring Provider: JOHNATHON Queen MD, [address] [place] [address] [address] [place] [address], [id number]. tel:[phone] [facility], [address] [place] [address] [place] [address], [id number], tel:[phone] [facility] No Information SUR[facility]. [address] [place] [address] SE, [address] [place] [address], [address]. tel:[phone] Referring Provider: JOHNATHON Queen MD, [address] [place] [address] [address] [place] [address], [id number]. tel:[phone] Family History Family Member Type Diagnosis Age At Onset No Information Payers Payer name Insurance type Covered alliance party ID Authoriza tialessia(s) [facility] EX[facility] CI [id number] Social History Type Description Quantity Date Captured [...]
[2024-07-22] VITALS (21 sets, daily range): BP systolic 128–175; BP diastolic 76–93; PULSE 53–78; RESP 16–20; TEMP 36.9–37.3; O2SAT 95–99; BMI 31.2; BMI 34.7
--- NOTE | 2024-07-22 | ED.GENADULT ---
HPI - General Adult General Chief complaint: Neuro Symptoms/Altered Deficit Stated complaint: not speaking coherently Time Seen by Provider: 07/22/24 00:00 Source: patient and family Mode of arrival: ambulatory Limitations: no limitations History of Present Illness HPI narrative: 78-year-old female presents the emergency department for evaluation of abnormal neurological changes. Symptoms started 10:30 p.m., lasted approximately 1 hour, gradually improving starting at about the 45 minute wilfrid. She arrives at about midnight. Currently asymptomatic. Primary symptom was that she was having difficulty both forming words and also finding words. describes a bit of a word salad type of presentation but also a slurring of her words. Unfortunately, she has had 2 previous episodes similar to this within the last few months. The 1st episode probably lasted less than 2 minutes, the 2nd was probably closer to 5 minutes and now this episode lasted at least 45 minutes total. No vision changes, no movement deficits, no sensory changes. She has no history of head trauma. She is anticoagulated on Eliquis for what sounds like a history of atrial fibrillation though she reports that she is typically a normal rhythm. No fever or recent illness. No head trauma. No neck stiffness. She does have a prior history of breast cancer but no documented history of metastases no reason to suspect these. She does not take any anti-platelet agents. She does have a history of coronary artery disease but reports that she had an angiogram to check on stents that were about 14 years old. Angiogram was performed just this past fall and reports that it was relatively normal and that her stent was functional. She continues to take her statin and her anticoagulation as recommended. No prior history of true stroke. She and both agree that she is back to her baseline currently. There are no other associated neurological symptoms at the time of the event. She was able to dress herself without difficulty per her . Balance and movements all seem normal. Past medical history most notable for breast cancer. She has had a couple of lumpectomies and ultimately a double mastectomy. Also the coronary artery disease. Home meds are metoprolol rosuvastatin and apixaban. Anastrozole as listed but she did not report taking that to me. She is a nonsmoker, denies alcohol use tonight. No history of intra-abdominal surgeries. ROS is notable for the neurological changes only, otherwise denies times 12 systems. Related Data Home Medications ?Medication ?Instructions ?Recorded ?Confirmed anastrozole 1 mg tablet 1 mg PO DAILY 05/20/23 02/17/24 nitroglycerin 0.4 mg sublingual mg sublingual 05/20/23 01/15/24 tablet apixaban 5 mg tablet (Eliquis) 5 mg PO DAILY 08/27/23 02/17/24 furosemide 20 mg tablet 20 mg PO DAILY 01/22/24 02/17/24 Previous Rx's ?Medication ?Instructions ?Recorded rosuvastatin 5 mg tablet 5 mg PO QDAY #90 tabs 12/03/23 metoprolol succinate 25 mg 25 mg PO BID #180 tabs 01/15/24 tablet,extended release 24 hr Allergies Allergy/AdvReac Type Severity Reaction Status Date / Time codeine Allergy Intermediate Vomiting Verified 02/17/24 12:53 Penicillins Allergy Mild Rash Verified 02/17/24 12:53 [facility] Medical History GLORIA (generalized anxiety disorder) ?F41.1 - Generalized anxiety disorder (ICD-10) Obesity ?E66.9 - Obesity, unspecified (ICD-10) Lower extremity edema ?R60.0 - Localized edema (ICD-10) History of blood clots ?Z86.718 - Personal history of other venous thrombosis and embolism (ICD-10) 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 - Other specified nonscarring hair loss (ICD-10) Diverticulosis ?K57.90 - Diverticulosis of intestine, part unspecified, without perforation or abscess without bleeding (ICD-10) Osteopenia ?M85.80 - Other specified disorders of bone density and structure, unspecified site (ICD-10) RICKEY (obstructive sleep apnea) (2014) ?G47.33 - Obstructive sleep apnea (adult) (pediatric) (ICD-10) GERD (gastroesophageal reflux disease) ?K21.9 - Gastro-esophageal reflux disease without esophagitis (ICD-10) Esophageal dysphagia ?R13.19 - Other dysphagia (ICD-10) Episodic paroxysmal hemicrania, not intractable ?G44.039 - Episodic paroxysmal hemicrania, not intractable (ICD-10) Eczema ?L30.9 - Dermatitis, unspecified (ICD-10) Hearing loss of both ears ?H91.93 - Unspecified hearing loss, bilateral (ICD-10) Chronic right shoulder pain ?M25.511 - Pain in right shoulder (ICD-10) ?G89.29 - Other chronic pain (ICD-10) Adjustment disorder with depressed mood (~06/2021) ?F43.21 - Adjustment disorder with depressed mood (ICD-10) Dyslipidemia ?E78.5 - Hyperlipidemia, unspecified (ICD-10) Head trauma (08/2023) ?S09.90XA - Unspecified injury of head, initial encounter (ICD-10) Anticoagulated ?Z79.01 - heel trimmer (current) use of anticoagulants (ICD-10) CAD (coronary artery disease) ?I25.10 - Atherosclerotic heart disease of [place] coronary artery without angina pectoris (ICD-10) Atrial fibrillation ?I48.91 - Unspecified atrial fibrillation (ICD-10) Essential tremor ?G25.0 - Essential tremor (ICD-10) Surgical History History of coronary angiogram (01/09/24) ?Z98.890 - Other specified postprocedural states (ICD-10) History of cataract surgery (2021) ?Z98.49 - Cataract extraction status, unspecified eye (ICD-10) History of lumpectomy of both breasts ?Z98.890 - Other specified postprocedural states (ICD-10) History of coronary artery stent placement (2010) ?Z95.5 - Presence of coronary angioplasty implant and graft (ICD-10) History of right mastectomy (07/18/17) ?Z90.11 - Acquired absence of right breast and nipple (ICD-10) Family History Mother Breast cancer, Onset Age: 50 Diabetes Malignant GIST (gastrointestinal stromal tumor), Onset Age: 80 Father Diabetes Heart failure, Onset Age: 86 Brother Cancer with unknown primary site, Onset Age: 58 Social History Narrative: recently, 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, 2 adult children in [facility] Lifetime nonsmoker 5-6 glasses of wine a week No drug use Exercises 50 N 3 times a week What is your current living situation?: I presently have a place to live Problems where you live: no known problems In the past 12 months, utilities in danger of being shut off: no In past 12 months, lack of transportation kept you from medical appts, meetings, work, or getting things needed for daily living: no In the past 12 mos, have been you worried that your food would run out before you had money to buy more?: never true In the past 12 mos, the food you bought just didn't last and you didn't have money to buy more?: never true Smoking Status: Never smoker Do you use any of these nicotine containing products: None Second hand tobacco smoke exposure: No How often do you have a drink containing alcohol: never How often do you have six or more drinks on one occasion: Never AUDIT-C Alcohol total score: 0 Non-prescribed substance use: denies use How often does anyone, including family, friends and others, physically hurt you: never How often does anyone, including family, friends and others, insult or talk down to you: never How often does anyone, including family, friends and others, threaten you with harm: never How often does anyone, including family, friends and others, scream or curse at you: never service: No Exam Const: Vital Signs, click to edit/add: Vital Signs - 24 hr 07/22/24 00:00 07/22/24 00:39 07/22/24 00:40 Temperature 98.4 F Pulse Rate 75 71 Pulse Rate [Pulse Oximeter] 69 Respiratory Rate 16 16 Blood Pressure 175/92 H Blood Pressure [Ri ght Upper Arm] 147/83 H Pulse Oximetry 98 97 97 Oxygen Delivery Me thod Room Air 07/22/24 00:46 07/22/24 00:51 07/22/24 01:01 Temperature Pulse Rate 70 65 Pulse Rate [Pulse Oximeter] Respiratory Rate 16 Blood Pressure 145/87 H 148/85 H Blood Pressure [Ri ght Upper Arm] Pulse Oximetry 98 98 Oxygen Delivery Me thod 07/22/24 01:02 07/22/24 01:15 07/22/24 01:17 Temperature Pulse Rate 66 71 67 Pulse Rate [Pulse Oximeter] Respiratory Rate Blood Pressure 150/84 H Blood Pressure [Ri ght Upper Arm] Pulse Oximetry 97 95 97 Oxygen Delivery Me thod 07/22/24 01:30 07/22/24 01:32 Temperature Pulse Rate 66 68 Pulse Rate [Pulse Oximeter] Respiratory Rate 16 Blood Pressure 145/85 H Blood Pressure [Ri ght Upper Arm] Pulse Oximetry 96 97 Oxygen Delivery Me thod Documenting provider has reviewed patient's vital signs: yes Common normals: no apparent distress, oriented x3 and alert General appearance: cooperative, comfortable and well kempt HENMT: Common normals: normocephalic, TM's normal bilaterally, moist oral mucous membranes and oropharynx normal Head and scalp: normocephalic Tympanic membrane: TM's normal bilaterally Eye: Common normals: PERRL, EOMs intact bilaterally and conjunctivae normal General eye: normal appearance of both eyes Conjunctiva: conjunctiva(e) normal Pupil: PERRL Neck & C-Spine: Common normals: full ROM and no lymphadenopathy Resp: Common normals: normal respiratory effort, no use of accessory muscles and clear to auscultation bilaterally Effort & inspection: able to speak in complete sentences Auscultation: clear to auscultation bilaterally Cardio: Common normals: regular rate, regular rhythm, S1 normal heart sound, S2 normal heart sound and no murmurs Rate: regular rate Rhythm: regular rhythm Heart sounds: S1 normal and S2 normal GI: Common normals: Normal to inspection, nondistended, normoactive bowel sounds present, soft to palpation, non-tender, no hepatosplenomegaly and no masses Palpation: soft and no hepatosplenomegaly Extremity: Common normals: normal to inspection, normal capillary refill and no pedal edema Neuro: Common normals: oriented x3, CN's II-XII intact bilaterally, moves all extremities, no focal motor deficits and gait normal Sensorium/orientation: alert Cranial nerves: CN normal except as noted Coordination/balance: [id number] test normal, Normal rapid alternating movements of the distal upper extremity present (Neuro) and Normal rapid alternating movements of the distal lower extremity present (Neuro) Speech: speech normal Motor exam: strength 5/5 throughout Coordination: [id number] test normal, rapid alternating movement UE normal and rapid alternating movement LE normal Psych: Common normals: thought process normal and speech normal Appearance: well kempt Attitude: engaged Activity/motor behavior: appropriate eye contact Speech: normal speech Mood and affect: euthymic mood Thought process: normal thought process Thought content: normal thought content Insight: insight good Judgement: judgment good Skin: Common normals: no rashes or lesions noted General skin exam: no rashes or lesions noted Course Course ED Course: 78-year-old female with episode of abnormal speech suspicious for TIA. Differential diagnosis also includes meningitis, intracranial hemorrhage, postictal state, temporal lobe seizure, acute illness, amongst others. Anticoagulated on Eliquis, compliant with statin. History of AFib certainly raises risk factor for stroke or TIA. Patient will undergo CT scan of the head, consider Neurology consult if symptoms return. Likely CT angio if CT of the head not demonstrate any bleed. Typical labs and consider to observation admission for MRI. Reevaluation(s) Reevaluation #1: Update: CT angio showing multifocal areas of variable stenoses. I spoke with the hospitalist and they are insistent on us calling the neurologist prior to observation admission for MRI. This will be done. Hospitalist does accept the patient for admission. She remains asymptomatic and repeat neurological exam is stable. Time of Reevaluation #2: 01:43 Reevaluation #2: I have spoken with Dr. Lehman from Neurology and she is in agreement with my plan. Patient will be admitted for observation for MRI/MRA. We should call Neurology back once these results are available for review. Do not recommend anti-platelet agent tonight since patient remains asymptomatic but we should continue her Eliquis. No additional treatment recommendations in the interim. Will likely need anti-platelet agent long-term. Vital Signs Vital signs: Initial Vital Signs Temperature 98.4 F 07/22/24 00:00 Temperature Source Temporal Artery Scan 07/22/24 00:00 Pulse Rate 69 07/22/24 00:00 Respiratory Rate 16 07/22/24 00:00 Blood Pressure 147/83 H 07/22/24 00:00 Blood Pressure Mean 104 07/22/24 00:00 Blood Pressure Position Sitting 07/22/24 00:00 Pulse Oximetry 98 07/22/24 00:00 Oxygen Delivery Method Room Air 07/22/24 00:00 Vital Signs Temperature 98.4 F 07/22/24 00:00 Pulse Rate 69 07/22/24 00:00 Respiratory Rate 16 07/22/24 00:00 Blood Pressure 147/83 H 07/22/24 00:00 Pulse Oximetry 98 07/22/24 00:00 Oxygen Delivery Method Room Air 07/22/24 00:00 Temperature 98.4 F 07/22/24 00:00 Pulse Rate 68 07/22/24 01:32 Respiratory Rate 16 07/22/24 01:32 Blood Pressure 145/85 H 07/22/24 01:32 Pulse Oximetry 97 07/22/24 01:32 Oxygen Delivery Method Room Air 07/22/24 00:00 Medical Decision Making Lab Data Lab results reviewed: Yes I reviewed the patient's lab results Labs: Lab Results 07/22/24 07/22/24 07/22/24 Range/Units 00:10 00:12 00:13 WBC 6.48 (4.50-11.00) K/uL RBC 4.33 (4.00-5.20) m/uL Hgb 13.3 (12.0-16.0) gm/dL Hct 41.3 (33.0-51.0) % MCV 95 (80-100) fL MCH 31 (26-34) pg MCHC 32 (32-36) gm/dL RDW Coeff of Blaise 14.0 (11.5-15.5) % Plt Count 174 (140-440) K/uL Neut % (Auto) 50.5 (42.0-72.0) % Lymph % (Auto) 32.7 (20-44) % [place] % (Auto) 12.8 H (0.0-11.0) % Eos % (Auto) 3.2 (0.0-7.0) % Baso % (Auto) 0.8 (0.0-3.0) % Neut # (Auto) 3.27 (1.7-7.0) K/uL Lymph # (Auto) 2.12 (0.90-2.90) K/uL [place] # (Auto) 0.80 (0.00-0.90) K/UL Eos # (Auto) 0.21 (0.00-0.50) K/uL Baso # (Auto) 0.05 (0.00-0.30) K/uL Abs Immat Gran (auto) 0.00 (0.00-0.30) K/uL Imm/Tot Granulo (auto) 0.0 % Sodium 140 (135-149) mmol/L Potassium 4.2 (3.6-5.1) mmol/L Chloride 106 (96-114) mmol/L Carbon Dioxide 27 (20-32) mmol/L Anion Gap 7 (7-15) mEq/L BUN 17 (7-30) mg/dL Creatinine 0.7 (0.5-1.5) mg/dL Estimated Creat Clear 32.23 Estimated GFR 87 ml/min Glucose 95 (60-115) mg/dL Lactate 0.5 (0.5-1.9) mmol/L Calcium 9.4 (8.4-10.6) mg/dL C-Reactive Protein < 0.5 L (0.5-1.0) mg/dL Urine Color Yellow (Yellow) Urine Appearance Clear (Clear) Urine pH 5.5 (5.0-8.5) Ur Specific [place] 1.025 (1.000-1.030) Urine Protein Negative (Negative) Urine Glucose (UA) Negative (Negative) Urine Ketones Negative (Negative) Urine Blood 2+ A (Negative) Urine Nitrite Negative (Negative) Urine Bilirubin Negative (Negative) Urine Urobilinogen 0.2 (0.2-1.0) Ur Leukocyte Esterase 1+ A (Negative) Urine RBC 2-5 A (0-2) Urine WBC 10-25 A (0-5) Ur Squamous Epith Cells Few (None-Few) Urine Bacteria Moderate A (None) Urine Opiates Screen Negative (Negative) Ur Oxycodone Screen Negative (Negative) Urine Methadone Screen Negative (Negative) Ur Barbiturates Screen Negative (Negative) U Tricyclic Antidepress Negative (Negative) Ur Phencyclidine Scrn Negative (Negative) Ur Amphetamines Screen Negative (Negative) U Methamphetamines Scrn Negative (Negative) U Benzodiazepines Scrn Negative (Negative) Urine Cocaine Screen Negative (Negative) U Marijuana (THC) Screen Negative (Negative) Ur Drug Screen Comment See Note Ethyl Alcohol < 0.01 L (0.01-0.03) % POC Creatinine 0.8 (0.6-1.3) mg/dl POC Troponin I 0.00 L (0.01-0.04) ng/ml Imaging Data CT scan - head: Attestation: I have reviewed the pertinent imaging results. My impression: Some degenerative changes but no obvious signs of intracranial hemorrhage, mass or other acute abnormality Radiologist's impression: Impression: Mild chronic senescent disease with no acute abnormality appreciated. If there is strong clinical concern for acute intracranial pathology, a contrast-enhanced MRI would be recommended for further evaluation. CT angio head: Attestation: I have reviewed the pertinent imaging results. Radiologist's impression: Impression: CTA head: Multifocal areas of variable stenoses involving the anterior and posterior circulation compatible with chronic atherosclerotic disease. 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 No acute abnormality appreciated. CTA neck: No acute abnormality appreciated. Dictated by Ryan Shaffer MD @ 07/22/2024 12:58:59 AM Read by:?Ryan Shaffer MD @07/22/2024 12:59:12 AM ECG Data Attestation: I personally reviewed and interpreted this ECG as follows: Prior ECG tracings: available for review (Comparison EKG 10/09/2023) Interpretation: Sinus rhythm with a rate of 72. Interval development of right bundle branch block since last EKG. Patient reports that this was the reason for the angiogram this fall. Intervals and axis do seem normal. No other acute ST or T-wave abnormalities. Discharge Plan Discharge Clinical Impression: Brain TIA Patient Disposition: Admitted As Observation
[2024-07-22 00:14] LABS: Lactate* 0.5 mmol/L (0.5-1.9)
[2024-07-22 00:16] LABS: Basophils Absolute Auto 0.05 K/uL (0.00-0.30); Basophils Percent Auto 0.8 % (0.0-3.0); Eosinophils Absolute Auto 0.21 K/uL (0.00-0.50); Eosinophils Percent Auto 3.2 % (0.0-7.0); Hematocrit 41.3 % (33.0-51.0); Hemoglobin* 13.3 gm/dL (12.0-16.0); Lymphocytes Absolute Auto 2.12 K/uL (0.90-2.90); Lymphocytes Percent Auto 32.7 % (20-44); Mean Corpuscular HGB Conc 32 gm/dL (32-36); Mean Corpuscular Hemoglobin 31 pg (26-34); Mean Corpuscular Volume 95 fL (80-100); Monocytes Percent Auto 12.8 % (0.0-11.0); Neutrophils Absolute Auto 3.27 K/uL (1.7-7.0); Neutrophils Percent Auto 50.5 % (42.0-72.0); Platelet Count* 174 K/uL (140-440); Red Blood Count 4.33 m/uL (4.00-5.20); White Blood Count* 6.48 K/uL (4.50-11.00)
[2024-07-22 00:17] LABS: Slide Review Reflex No
[2024-07-22 00:21] LABS: Appearance Urine Clear (Clear); Bilirubin Urine Negative (Negative); Blood Urine 2+ (Negative); Color Urine Yellow (Yellow); Glucose Urine Negative (Negative); Ketones Urine Negative (Negative); Leukocyte Esterase Urine 1+ (Negative); Nitrite Urine Negative (Negative); Protein Urine Negative (Negative); Specific Gravity Urine 1.025 (1.000-1.030); Urobilinogen Urine 0.2 (0.2-1.0); pH Urine 5.5 (5.0-8.5)
[2024-07-22 00:27] LABS: Creatinine, Point-of-Care* 0.8 mg/dl (0.6-1.3)
[2024-07-22 00:29] LABS: Chloride* 106 mmol/L (96-114); Sodium* 140 mmol/L (135-149)
[2024-07-22 00:30] LABS: Potassium* 4.2 mmol/L (3.6-5.1)
[2024-07-22 00:30] LABS: Amphetamine Screen Urine Negative (Negative); Barbiturate Screen Urine Negative (Negative); Benzodiazepines Screen Urine Negative (Negative); Cannabinoid Screen Urine Negative (Negative); Cocaine Screen Urine Negative (Negative); Methadone Screen Urine Negative (Negative); Methamphetamines Screen Urine Negative (Negative); Opiate Screen Urine Negative (Negative); Oxycodone Screen Urine Negative (Negative); Phencyclidine Screen Urine Negative (Negative); Tricyclic Antidepressant Urine Negative (Negative)
[2024-07-22 00:32] LABS: Creatinine* 0.7 mg/dL (0.5-1.5); Est. Creatinine Clearance* 32.23; Estimated Glomerular Filt Rate 87 ml/min
[2024-07-22 00:33] LABS: Bacteria Urine Moderate; Squamous Epithelial Cell Urine Few (None-Few)
[2024-07-22 00:33] LABS: Anion Gap 7 mEq/L (7-15); Blood Urea Nitrogen* 17 mg/dL (7-30); Calcium* 9.4 mg/dL (8.4-10.6); Carbon Dioxide* 27 mmol/L (20-32); Glucose* 95 mg/dL (60-115)
[2024-07-22 00:38] LABS: C Reactive Protein* < 0.5 mg/dL (0.5-1.0); Ethanol* < 0.01 % (0.01-0.03)
--- NOTE | 2024-07-22 03:25 | W.PM.TELEH&P ---
Telehealth- H&P: HPI History of Present Illness Date Seen: 07/22/24 Chief complaint: not speaking coherrently Narrative: Alexandra Gorman is seen as an Interactive Telehealth visit. Alexandra Gorman is a 78 year old female with past medical history significant for A-fib on chronic anticoagulation with Eliquis, history of CAD, hypertension, prediabetes, RICKEY, essential tremor, breast CVA in remission who is presenting to emergency department with complaints of episode of speech difficulty. Patient reports around 10:30 PM last night she developed the episode where she knew the words she wanted to say however words were not coming out. Per patient's , patient was also having slurred speech and her speech was more like a word salad. She says the episode lasted for about half an hour at least. She says this is the third time in last couple of months. She came to the emergency department for further evaluation. She otherwise denies any fever, chills, chest pain, shortness of breath, cough, abdominal pain, nausea vomiting, diarrhea. Denies headache or dizziness. Denies any increased urinary frequency or urgency. Initial blood pressure when she presented it was 153/79, pulse 66, pulse ox 97% on room air, temperature 98.4 Workup in the emergency department showed CBC with white count of 6.48, hemoglobin 13.3, hematocrit 41.3, platelets 174. Sodium 140, potassium 4.2, chloride 106, CO2 27, anion gap 7, BUN 17, creatinine 0.7, glucose 95, lactate 0.5, calcium 9.4, CRP 0.5, cholesterol 213, LDL 116, UA showed leukocytes 1+, bacteria moderate WBC 10-25. CT head showed mild chronic disease with no acute abnormality appreciated. CTA of the head was done. CT angiogram showed multifocal areas of variable stenosis involving the anterior and posterior circulation compatible with chronic atherosclerotic disease. 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 No acute abnormality appreciated. ER provider discussed case with neurology Dr. Velazquez. Neurology did not recommend any antiplatelet agents tonight. They advised to call back after the results of MRI and MRA. Review of Systems Narrative: Complete ROS was performed, pertinent positives and negatives per HPI. [facility] Medical History GLORIA (generalized anxiety disorder) ?F41.1 - Generalized anxiety disorder (ICD-10) Obesity ?E66.9 - Obesity, unspecified (ICD-10) Lower extremity edema ?R60.0 - Localized edema (ICD-10) History of blood clots ?Z86.718 - Personal history of other venous thrombosis and embolism (ICD-10) 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 - Other specified nonscarring hair loss (ICD-10) Diverticulosis ?K57.90 - Diverticulosis of intestine, part unspecified, without perforation or abscess without bleeding (ICD-10) Osteopenia ?M85.80 - Other specified disorders of bone density and structure, unspecified site (ICD-10) RICKEY (obstructive sleep apnea) (2014) ?G47.33 - Obstructive sleep apnea (adult) (pediatric) (ICD-10) GERD (gastroesophageal reflux disease) ?K21.9 - Gastro-esophageal reflux disease without esophagitis (ICD-10) Esophageal dysphagia ?R13.19 - Other dysphagia (ICD-10) Episodic paroxysmal hemicrania, not intractable ?G44.039 - Episodic paroxysmal hemicrania, not intractable (ICD-10) Eczema ?L30.9 - Dermatitis, unspecified (ICD-10) Hearing loss of both ears ?H91.93 - Unspecified hearing loss, bilateral (ICD-10) Chronic right shoulder pain ?M25.511 - Pain in right shoulder (ICD-10) ?G89.29 - Other chronic pain (ICD-10) Adjustment disorder with depressed mood (~06/2021) ?F43.21 - Adjustment disorder with depressed mood (ICD-10) Dyslipidemia ?E78.5 - Hyperlipidemia, unspecified (ICD-10) Head trauma (08/2023) ?S09.90XA - Unspecified injury of head, initial encounter (ICD-10) Anticoagulated ?Z79.01 - intermediate project manager (current) use of anticoagulants (ICD-10) CAD (coronary artery disease) ?I25.10 - Atherosclerotic heart disease of [place] coronary artery without angina pectoris (ICD-10) Atrial fibrillation ?I48.91 - Unspecified atrial fibrillation (ICD-10) Essential tremor ?G25.0 - Essential tremor (ICD-10) Surgical History History of coronary angiogram (01/09/24) ?Z98.890 - Other specified postprocedural states (ICD-10) History of cataract surgery (2021) ?Z98.49 - Cataract extraction status, unspecified eye (ICD-10) History of lumpectomy of both breasts ?Z98.890 - Other specified postprocedural states (ICD-10) History of coronary artery stent placement (2010) ?Z95.5 - Presence of coronary angioplasty implant and graft (ICD-10) History of right mastectomy (07/18/17) ?Z90.11 - Acquired absence of right breast and nipple (ICD-10) Family History Mother Breast cancer, Onset Age: 50 Diabetes Malignant GIST (gastrointestinal stromal tumor), Onset Age: 80 Father Diabetes Heart failure, Onset Age: 86 Brother Cancer with unknown primary site, Onset Age: 58 Social History Narrative: recently, 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, 2 adult children in [facility] Lifetime nonsmoker 5-6 glasses of wine a week No drug use Exercises 50 N 3 times a week What is your current living situation?: I presently have a place to live Problems where you live: no known problems In the past 12 months, utilities in danger of being shut off: no In past 12 months, lack of transportation kept you from medical appts, meetings, work, or getting things needed for daily living: no In the past 12 mos, have been you worried that your food would run out before you had money to buy more?: never true In the past 12 mos, the food you bought just didn't last and you didn't have money to buy more?: never true Smoking Status: Never smoker Do you use any of these nicotine containing products: None Second hand tobacco smoke exposure: No How often do you have a drink containing alcohol: never How often do you have six or more drinks on one occasion: Never AUDIT-C Alcohol total score: 0 Non-prescribed substance use: denies use How often does anyone, including family, friends and others, physically hurt you: never How often does anyone, including family, friends and others, insult or talk down to you: never How often does anyone, including family, friends and others, threaten you with harm: never How often does anyone, including family, friends and others, scream or curse at you: never service: No Meds Home Medications and Allergies Home Medications ?Medication ?Instructions ?Recorded ?Confirmed ?Type anastrozole 1 mg tablet 1 mg PO DAILY 05/20/23 02/17/24 History nitroglycerin 0.4 mg sublingual mg sublingual 05/20/23 01/15/24 History tablet apixaban 5 mg tablet (Eliquis) 5 mg PO DAILY 08/27/23 02/17/24 History furosemide 20 mg tablet 20 mg PO DAILY 01/22/24 02/17/24 History Allergies Allergy/AdvReac Type Severity Reaction Status Date / Time codeine Allergy Intermediate Vomiting Verified 02/17/24 12:53 Penicillins Allergy Mild Rash Verified 02/17/24 12:53 Exam Narrative Exam Narrative: Physical Exam GENERAL: ?vital signs reviewed, well developed and nourished, in no distress HEENT: pupils are equal round and reactive to light, extraocular movements are grossly within normal limits and oral mucosa is moist. NECK: Supple HEART: Regular rate and rhythm without any rubs, murmurs, or gallops. LUNGS: Clear to auscultation bilaterally with good air movement throughout ABDOMEN: Observation from nurse assisted exam, abdomen appears soft, nontender, and nondistended with Positive bowel sounds noted. EXTREMITIES: EOMI, PERLLA, tongue midline, speech intact, no facial droop, intact shoulder shrug, nurse assisted neuro exam with no focal deficits. SKIN:? Observed warm and dry with color normal Const Vital Signs, click to edit/add: Vital Signs - 24 hr 07/22/24 00:00 07/22/24 00:39 07/22/24 00:40 Temperature 98.4 F Pulse Rate 75 71 Pulse Rate [Pulse Oximeter] 69 Respiratory Rate 16 16 Blood Pressure 175/92 H Blood Pressure [Right Upper Arm] 147/83 H Pulse Oximetry 98 97 97 Oxygen Delivery Method Room Air 07/22/24 00:46 07/22/24 00:51 07/22/24 01:01 Temperature Pulse Rate 70 65 Pulse Rate [Pulse Oximeter] Respiratory Rate 16 Blood Pressure 145/87 H 148/85 H Blood Pressure [Right Upper Arm] Pulse Oximetry 98 98 Oxygen Delivery Method 07/22/24 01:02 07/22/24 01:15 07/22/24 01:17 Temperature Pulse Rate 66 71 67 Pulse Rate [Pulse Oximeter] Respiratory Rate Blood Pressure 150/84 H Blood Pressure [Right Upper Arm] Pulse Oximetry 97 95 97 Oxygen Delivery Method 07/22/24 01:30 07/22/24 01:32 07/22/24 01:58 Temperature Pulse Rate 66 68 Pulse Rate [Pulse Oximeter] Respiratory Rate 16 Blood Pressure 145/85 H Blood Pressure [Right Upper Arm] Pulse Oximetry 96 97 97 Oxygen Delivery Method Hospitalist - H&P: Result Labs Labs: Short CBC 07/22/24 Range/Units 00:10 WBC 6.48 (4.50-11.00) K/uL Hgb 13.3 (12.0-16.0) gm/dL Hct 41.3 (33.0-51.0) % Plt Count 174 (140-440) K/uL BMP 07/22/24 00:10 Sodium 140 Potassium 4.2 Chloride 106 Carbon Dioxide 27 BUN 17 Creatinine 0.7 Glucose 95 Calcium 9.4 Urine 07/22/24 Range/Units 00:12 Urine Color Yellow (Yellow) Urine Appearance Clear (Clear) Urine pH 5.5 (5.0-8.5) Ur Specific [place] 1.025 (1.000-1.030) Urine Protein Negative (Negative) Urine Glucose (UA) Negative (Negative) Assessment and Plan Assessment and plan (1) Brain TIA: Status: Acute (2) History of coronary angiogram: Problem comment: dr mendieta/ No intervention meeting 50% proximal LAD, 50% ostial RCA, 30 % 1st diagonal, Status: Acute (3) Pre-diabetes: Status: Acute (4) Balance problems: Problem comment: referral to physical therapy 12/04/2023 Status: Chronic (5) GLORIA (generalized anxiety disorder): Problem comment: adjustment to new / referral to counseling Status: Chronic (6) Obesity: Status: Chronic (7) Lower extremity edema: Problem comment: dependant Status: Chronic (8) RICKEY (obstructive sleep apnea): Problem comment: Did not tolerate CPAP. Status: Chronic (9) Hearing loss of both ears: Problem comment: with tinnitus. Status: Chronic (10) Atrial fibrillation: Problem comment: On Luk[place], wants to establish care with Cardiology Status: Chronic (11) CAD (coronary artery disease): Problem comment: and Hx PAF, PAC & PSVT. History of stent 2010. Status: Chronic Plan Patient with past medical history significant for breast CA, HTN, HLP, A-fib on Eliquis, CAD, RICKEY who is presenting to emergency department with slurred speech and word finding aphasia. # Slurred speech # Aphasia - symptoms have completely resolved. no other focal deficits. - CT head negative for acute findings. CTA head showed multifocal athersclerosis however no major artery occulsion - ER discussed with neuro. no plan for antiplatelets tonight per neuro. They recommended to call back tomorrow after the results of MRI. Plan - cont with tele monitoring. Pt is currently in sinus rhythm. - echo in am. - MRI brain and MRA brain in am. - cont eliquis for now - discuss with neurology after MRI results to discuss if antiplatelets need to be added. # CAD # HTN # HLP - cont home regiment. # DVT proph - already on AC Telehealth: Statement Statement Telehealth Visit: Today's History and Physical is provided via interactive telehealth by Joelle Pichardo MD.? Patient is located at [facility].? Provider is located at [facility].? Nursing staff assisted with the patient's exam. The visit being done today meets criteria for a telehealth visit and the patient or patient?s parent/guardian is aware the visit is a telehealth visit. Camera Start Time: 03:06 Camera End Time: 03:20
--- NOTE | 2024-07-22 06:55 | PC.NURSE ---
End of shift summary: Pt arrived to the floor at 0200. She is independent with transfers with a steady gait. Pt is A&O, afebrile and VSS. Notable head tremor on assessment. PIV in left AC SL and C/D/I. Neuro checks q4H have been unremarkable. Pt notes raspy/shaky voice is chronic. Non-pitting edema to bilateral ankles noted & new for patient. Denies having pain, nausea or SOB. MRI and ECHO ordered for today, 07/22. ?
[2024-07-22] MEDS: APIXABAN 5 MG TABLET PO (09:23)
[2024-07-22] MEDS: METOPROLOL SUCCINATE (XL) 25 MG TAB PO (09:23)
[2024-07-22] MEDS: FUROSEMIDE 20 MG TABLET PO (09:23)
[2024-07-22] MEDS: SODIUM CHLORIDE 0.9 % (FLUSH) 10 ML SYRINGE 5 ML IVF (09:25)
--- NOTE | 2024-07-22 12:40 | PC.NURSE ---
Shift Summary: Patient pleasant and cooperative. Up independently, no problems noted with gait. Patient has essential tremor in neck/voice at baseline. Around 1030 patient stated she had some tingling in right arm, neuros baseline at this time, this has since resolved. Consult with neurology done this morning. Tolerating regular diet, no aspiration/difficulty chewing or swallowing.
[2024-07-22] MEDS: ACETAMINOPHEN 325 MG TABLET 650 MG PO (14:25)
--- NOTE | 2024-07-22 16:21 | PM.DS1 ---
DS: Providers Provider Date Seen: 07/22/24 Date of admission: 07/22/24 01:49 Primary care physician: Lisa Quinones MD Admitting Clinician: Joelle Pichardo MD Consults: 07/22/24 Consult to Occupational Therapy [CONS] Routine Comment: Reason(s) for OT Consult:: Evaluate and Treat Any Restrictions?:: No Restrictions Consult to Physical Therapy [CONS] Routine Comment: Reason(s) for PT Consult:: Evaluate and Treat Any Restrictions?:: No Restrictions Attending Physician on discharge: Shelley Byrd MD DS: Diagnosis Discharge Diagnosis (1) Brain TIA: Status: Acute Problem details: Brain MRI: no acute changes, Prelim ECHO report unremarkable Neuro-tele consulted, does not rec adding ASA on top of Eliquis. Need f/up w/ neurology in 3 M to r/out seizures causes (2) Atrial fibrillation: Status: Chronic Problem details: On Eliquis, wants to establish care with Cardiology resume Eliquis per neuro-tele (3) Asymptomatic bacteriuria: Status: Acute Problem details: pt's labs showed bacteruria (Pt is asymptomatic) thus no Tx at this time. (4) History of coronary angiogram: Status: Acute Problem details: dr mendieta/ No intervention meeting 50% proximal LAD, 50% ostial RCA, 30 % 1st diagonal, (5) Pre-diabetes: Status: Acute (6) GLORIA (generalized anxiety disorder): Status: Chronic Problem details: adjustment to new / referral to counseling (7) Obesity: Status: Chronic (8) Lower extremity edema: Status: Chronic Problem details: dependant on furesomide (9) RICKEY (obstructive sleep apnea): Status: Chronic Problem details: Did not tolerate CPAP. (10) Hearing loss of both ears: Status: Chronic Problem details: with tinnitus. (11) CAD (coronary artery disease): Status: Chronic Problem details: and Hx PAF, PAC & PSVT. History of stent 2010. DS: Summary Hospital Course Hospital Course: Pt w/ hx of afib on AC presented w/ aphasia that resolved, a picture of TIA. Brain MRI: no acute changes. Neuro-tele consulted, does not rec adding ASA on top of Eliquis. Need f/up w/ neurology in 3 M to r/out seizures causes. In addition, pt's labs showed bacteruria (Pt is asymptomatic) thus no Tx at this time. Time Spent with Patient Time attestation: Total time spent providing and/or coordinating discharge services: Exam Narrative: Exam Narrative: Physical exam GENERAL: Comfortable, no acute distress. HEAD AND NECK: Atraumatic, normocephalic CARDIOVASCULAR: Normal S1, S2. No murmurs. GASTROINTESTINAL: Not distended, not tender to palpation. NEUROLOGY: Alert, awake, oriented X 3. Normal speech. PSYCH: Normal mood, normal affect. Const: Vital Signs, click to edit/add: Vital Signs - 24 hr 07/22/24 00:00 07/22/24 00:39 07/22/24 00:40 Temperature 98.4 F Pulse Rate 75 71 Pulse Rate [Pulse Oximeter] 69 Respiratory Rate 16 16 Blood Pressure 175/92 H Blood Pressure [Le ft Arm] Blood Pressure [Ri ght Upper Arm] 147/83 H Pulse Oximetry 98 97 97 Oxygen Delivery Me thod Room Air 07/22/24 00:46 07/22/24 00:51 07/22/24 01:01 Temperature Pulse Rate 70 65 Pulse Rate [Pulse Oximeter] Respiratory Rate 16 Blood Pressure 145/87 H 148/85 H Blood Pressure [Le ft Arm] Blood Pressure [Ri ght Upper Arm] Pulse Oximetry 98 98 Oxygen Delivery Me thod 07/22/24 01:02 07/22/24 01:15 07/22/24 01:17 Temperature Pulse Rate 66 71 67 Pulse Rate [Pulse Oximeter] Respiratory Rate Blood Pressure 150/84 H Blood Pressure [Le ft Arm] Blood Pressure [Ri ght Upper Arm] Pulse Oximetry 97 95 97 Oxygen Delivery Me thod 07/22/24 01:30 07/22/24 01:32 07/22/24 01:58 Temperature Pulse Rate 66 68 Pulse Rate [Pulse Oximeter] Respiratory Rate 16 Blood Pressure 145/85 H Blood Pressure [Le ft Arm] Blood Pressure [Ri ght Upper Arm] Pulse Oximetry 96 97 97 Oxygen Delivery Me thod 07/22/24 02:00 07/22/24 02:00 07/22/24 04:49 Temperature 98.8 F Pulse Rate Pulse Rate [Pulse Oximeter] 74 74 Respiratory Rate 20 16 16 Blood Pressure Blood Pressure [Le ft Arm] 150/85 H Blood Pressure [Ri ght Upper Arm] Pulse Oximetry 99 99 Oxygen Delivery Me thod Room Air Room Air 07/22/24 05:51 07/22/24 07:46 07/22/24 08:00 Temperature Pulse Rate 69 53 L Pulse Rate [Pulse Oximeter] 72 Respiratory Rate Blood Pressure Blood Pressure [Le ft Arm] Blood Pressure [Ri ght Upper Arm] Pulse Oximetry Oxygen Delivery Me thod 07/22/24 08:00 07/22/24 11:00 07/22/24 11:01 Temperature 98.8 F 98.8 F Pulse Rate Pulse Rate [Pulse Oximeter] 72 69 69 Respiratory Rate 18 16 Blood Pressure Blood Pressure [Le ft Arm] 147/80 H 155/93 H Blood Pressure [Ri ght Upper Arm] Pulse Oximetry 97 97 Oxygen Delivery Me thod Room Air Room Air 07/22/24 16:11 Temperature Pulse Rate 78 Pulse Rate [Pulse Oximeter] Respiratory Rate Blood Pressure Blood Pressure [Le ft Arm] Blood Pressure [Ri ght Upper Arm] Pulse Oximetry Oxygen Delivery Me thod DS: Data Data Completed and Pending Labs on day of discharge: Labs from last 24 hours 07/22/24 07/22/24 07/22/24 00:13 00:12 00:10 WBC 6.48 RBC 4.33 Hgb 13.3 Hct 41.3 MCV 95 MCH 31 MCHC 32 RDW Coeff of [place] 14.0 Plt Count 174 Neut % (Auto) 50.5 Lymph % (Auto) 32.7 [place] % (Auto) 12.8 H Eos % (Auto) 3.2 Baso % (Auto) 0.8 Neut # (Auto) 3.27 Lymph # (Auto) 2.12 [place] # (Auto) 0.80 Eos # (Auto) 0.21 Baso # (Auto) 0.05 Abs Immat Gran (auto) 0.00 Imm/Tot Granulo (auto) 0.0 Sodium 140 Potassium 4.2 Chloride 106 Carbon Dioxide 27 Anion Gap 7 BUN 17 Creatinine 0.7 Estimated Creat Clear 32.23 Estimated GFR 87 Glucose 95 Lactate 0.5 Calcium 9.4 C-Reactive Protein < 0.5 L Urine Color Yellow Urine Appearance Clear Urine pH 5.5 Ur Specific [place] 1.025 Urine Protein Negative Urine Glucose (UA) Negative Urine Ketones Negative Urine Blood 2+ A Urine Nitrite Negative Urine Bilirubin Negative Urine Urobilinogen 0.2 Ur Leukocyte Esterase 1+ A Urine RBC 2-5 A Urine WBC 10-25 A Ur Squamous Epith Cells Few Urine Bacteria Moderate A Urine Opiates Screen Negative Ur Oxycodone Screen Negative Urine Methadone Screen Negative Ur Barbiturates Screen Negative U Tricyclic Antidepress Negative Ur Phencyclidine Scrn Negative Ur Amphetamines Screen Negative U Methamphetamines Scrn Negative U Benzodiazepines Scrn Negative Urine Cocaine Screen Negative U Marijuana (THC) Screen Negative Ur Drug Screen Comment See Note Ethyl Alcohol < 0.01 L POC Creatinine 0.8 POC Troponin I 0.00 L Preliminary micro results at discharge 07/22/24 00:12 Urine Culture - Preliminary Urine,Clean Catch Culture in Progress Discharge Plan Discharge Disposition: Home w/ Parent or Adult Date of Admission: 07/22/24 01:49 Attending Provider on Discharge: Shelley Byrd Primary Care Provider: Lisa Quinones Condition: Improved Anticipated Discharge Date/Time: 07/22/24 16:08 Discharge Medications: Continued anastrozole 1 mg tablet 1 mg PO DAILY nitroglycerin 0.4 mg tablet, sublingual 0.4 mg sublingual Q5M PRN Eliquis 5 mg tablet 5 mg PO Q12H metoprolol succinate 25 mg tablet extended release 24 hr 25 mg PO DAILY rosuvastatin 5 mg tablet 5 mg PO DAILY furosemide 20 mg tablet 20 mg PO DAILY PRN Discharge Orders: Discharge Order (Routine); Ordered 07/22/24 Ordered By: Shelley Byrd Patient Education: Transient Ischemic Attack (GEN) Additional Instructions: -please follow-up with you primary care physician in 1 week -urine culture results are pending, we did not prescribe antibiotics for you because you do not have any urinary symptoms, please discuss your culture results with your primary care physician. -you need to follow-up with a neurologist in about 3 months to rule out conditions such as seizures that might have caused your symptoms. please talk to your primary MD about making this appointment -follow-up with speech therapy as an outpatient for evaluation and treatment. -please take your blood thinner twice a day on time. Activity Level: Activity as Tolerated Discharge Diet: Heart Healthy (2 gm sodium, low fat) Follow Up Appointments: Lisa Quinones MD [Primary Care Provider] - 07/29/24 9:00 am ([facility] follow-up appointment. Please talk to your primary MD about making a neurology appointment. ) Forms: [employer] Info Instructions
--- NOTE | 2024-07-22 18:03 | PC.NURSE ---
Discharge: Patient pleasant and cooperative, VSS, afebrile. SpO2 maintained above 90% on RA. IV removed with tip intact. Discharge instructions provided, all questions answered. Discharged to home with .
== END 2024-07-22 17:24 | disposition home or self-care (01) ==
LOC: ED 07-22 01:44 → MEDSURG 07-22 01:50
PROVIDERS: Admitting Provider Internal Medicine; Emergency Provider Family Medicine; PCP Family Medicine; Visit Provider Internal Medicine
DX: G45.9 Transient cerebral ischemic attack, unspecified (principal); R82.71 Bacteriuria; R73.03 Prediabetes; I48.91 Unspecified atrial fibrillation; Z79.01 Long term (current) use of anticoagulants; F41.1 Generalized anxiety disorder; E66.9 Obesity, unspecified; R60.0 Localized edema; I10 Essential (primary) hypertension; R26.81 Unsteadiness on feet; G47.33 Obstructive sleep apnea (adult) (pediatric); H91.93 Unspecified hearing loss, bilateral; H93.13 Tinnitus, bilateral; I25.10 Atherosclerotic heart disease of native coronary artery without angina pectoris; Z98.890 Other specified postprocedural states; Z79.899 Other long term (current) drug therapy
CPT/HCPCS: 36415; 70450; 70496; 70498; 70553; 80048; 80306; 81001; 81003; 82077; 82565; 83605; 84484; 85025; 86140; 87086; 93005; 93306; 94761; 97116; 97161; 97165; 97530; 99284; 99285; A9270; A9575; G0378; Q9967

== ENCOUNTER 2025-02-03 16:09 | Emergency (ER) | payer MEDICARE, SELFPAY ==
--- OUTSIDE RECORDS SUMMARY | 2021-12-10 11:54 | XMS_ITS | Continuity of Care Document ---
Author Organization [facility] Address [address] [facility] [address] [place] [address] Phone Care Team Providers Care Personal Injury Litigation Paralegal Name Role Phone [facility] Unavailable Unavailabl e Procedures [place] Advance Directives Directive Yes / No Effective Date File Name No Information Encounters Encounter Description Practice Location Reason(s) For Visit Diagnoses Date Provider Providers Copied on Encounter [facility], [address] [place] [address], [id number], tel:[phone] [facility] No Information [facility]. [address] [place] [address] [place] [address], [id number], [place]. tel:[phone] Referring Provider: JOHNATHON Queen MD, [address] [place] [address] [place] [address], [id number]. tel:[phone] [facility], [address] [place] [address] [place] [address], [address], tel:[phone] [facility] No Information [facility] [address] [place] [address] [place] [address], [id number], [place]. tel:[phone] Referring Provider: JOHNATHON Queen MD, [address] [place] [address] [place] [address], [id number]. tel:[phone] [facility], [address] [place] [address] [place] [address], [address], tel:[phone] [facility] No Information [facility]. [address] [place] [address], [address] [place] [address], [id number], . tel:[phone] Referring Provider: JOHNATHON Queen MD, [address] [place] [address], [id number]. tel:[phone] [facility], [address] [place] [address], [address], tel:[phone] [facility] No Information [facility]. [address] [place] [address], [address], [id number], . tel:[phone] Referring Provider: JOHNATHON Queen MD, [address] [place] [address], [id number]. tel:[phone] Family History Family Member Type Diagnosis Age At Onset No Information Payers Payer name Insurance type Covered libertarian ID Authoriza tion(s) [employer] EXEMPT CI [id number] Social History Type Description Quantity Date Captured Comments Sex Female Smoking Status No Information Chief Complaint And Reason For Visit No Information Reason For Referral Reason For Referral No Information History Of Present Illness Encounter Date Complaint History Of Prese nt Illness No Information Functional Status Date Functional Assessmen t No Information Instructions Date Instruction Additional Infor mation No Information Assessments Type Assessment Date No Information Patient Care Teams Name Effective Dates (start - stop) Status Members No Information
--- OUTSIDE RECORDS SUMMARY | 2022-09-26 02:25 | XMS_ITS | Continuity of Care Document ---
Author Organization [facility] Address [address] [place] [address] [address] [place] [address] Phone Care Team Providers Care Lead Network Architect Name Role Phone [facility] Unavailable Taylor vailable Procedures Procedure Date YAG LASER POST CAPSULOTOMY ECCE W/IOL Inj Phenylephrine Ketorolac RELACS Advance Directives Directive Yes / No Effective Date File Name No Information Encounters Encounter Description Practice Location Reason(s) For Visit Diagnoses Date Provider Providers Copied on Encounter [facility], [address] [place], [place] [address], [id number], tel:[phone] [facility] No Information [facility]. [address] [place] [address], [address] [place] [address], [address]. tel:[phone] Referring Provider: JOHNATHON Queen MD, [address] [place] [address] [address] [place] [address], [id number]. tel:[phone] [facility], [address] [place] [address], [id number], tel:[phone] [facility] No Information [facility]. [address] [place] [address], [address] [place] [address], [address]. tel:[phone] Referring Provider: JOHNATHON Queen MD, [address] [place] [address] [address] [place] [address], [address]. tel:[phone] Family History Family Member Type Diagnosis Age At Onset No Information Payers Payer name Insurance type Covered democrat ID Authoriza tialessia(s) [facility] EXEMPT CI [id number] Social History Type Description Quantity Date Captured [...]
--- OUTSIDE RECORDS SUMMARY | 2022-10-02 05:15 | XMS_ITS | Continuity of Care Document ---
Author Organization [facility] Address [address] [facility] [address] [place] [address] Phone Care Team Providers Care Lobster Fisherman Name Role Phone MAXIMILIANO SIDDIQUI OD Unavailable Unavailable Allergies, Adverse Reactions, Alerts Substance Reaction Status Criticality codeine Active No Information Penicillins Active No Information Medications Medication Instructions Dosage Effective Dates (start - stop) Status Comments Xarelto 10 mg tablet take 1 tablet by oral route every day 10 MG - Active metoprolol succinate ER 50 mg tablet,extended release 24 hr take 1 tablet by oral route every day 50 MG - Active DAILY-KAMRAN (unknown strength) Not Available - Active VITAMIN D-400 (unknown strength) Not Available - Active Procedures Procedure Date REFRACTION POSTOP DR MICHAEL PT YAG LASER POST CAPSULOTOMY Flu imm no ord/admin doc jamaal COMPREHENSIVE EST PATIENT REFRACTION POSTOP DR MICHAEL PT POSTOP DR MICHAEL PT POSTOP DR MICHAEL PT POSTOP DR MICHAEL PT ECCE W/IOL Flu imm no ord/admin doc jamaal ULTRASOUND A-SCAN ULTRASOUND A-SCAN OTHER MEDICINE SERVICES & PROCEDURES October Flu imm no ord/admin doc jamaal COMPREHENSIVE EST PATIENT COMPREHENSIVE EST PATIENT NO CHARGE REFRACTION COMPREHENSIVE EST PATIENT COMPREHENSIVE EST PATIENT REFRACTION COMPREHENSIVE EST PATIENT COMPREHENSIVE EST PATIENT COMPREHENSIVE EST PATIENT Advance Directives Directive Yes / No Effective Date File Name No Information Encounters Encounter Description Practice Location Reason(s) For Visit Diagnoses Date Provider Providers Copied on Encounter [facility], [address], [facility] [place], [place], [id number] , [place] tel:[phone] [facility] a post op exam (chief complaint) Presence of intraocular lens 3 CHEN VIERA. [address], [address], [facility] [place], [place], [id number] . tel:[phone] [facility], [address], [facility] [place] [place] [id number] , [place] tel: [phone] [facility] No Information 3 ALEC DIEGO. [address], [address], [place], [place], [id number] . tel:[phone] Referring Provider: JOHNATHON Queen MD, [address] [facility] [address], [place], [address] . tel:[phone] [facility], [address] [facility] [address], [facility] [place], [id number] , [place] tel:[phone] [facility] a comprehensive exam (chief complaint) Other secondary cataract, left eyeAge-relate d nuclear cataract, right eye Aug-3 3 ALEC DIEGO. [address], [address], [facility] [place] [place], [id number] . tel:[phone] [facility], [address], [facility] [place] [place], [id number] , [place] tel:[phone] [facility] a post op exam (chief complaint) Presence of intraocular lens 2 ALEC DIEGO. [address] [place] [address] [address], [address], [place], [id number] . tel: [phone] [facility], [address], [place], [id number] , [place] tel: [phone] [facility] a post op exam (chief complaint) Presence of intraocular lens 2 MERCK JOHNATHON. [address] [place] [address], [address], [place], [id number] . tel: [phone] [facility], [facility], [place], [id number] , [place] tel: [phone] [facility] a post op exam (chief complaint) Presence of intraocular lens 2 MERCK JOHNATHON. [address] [place] [address], [address], [place], [id number] . tel: [phone] [facility], [address] [place] [address] [address], [facility] [place], [id number] , [place] tel: [phone] [facility] a post op exam (chief complaint) Presence of intraocular lens 2 MERCK JOHNATHON. [address] [place] [address], [address], [facility] [place], [id number] . tel: [phone] [facility], [address] [place], [place] [address], [facility] [place], [id number] , [place] tel: [phone] [facility] No Information 2 MERCK JOHNATHON. [address] [place] [address], [address], [facility] [place], [id number] . tel: [phone] Referring Provider: JOHNATHON Queen MD, [address] [place] [address] [address], [place], [address] . tel:[phone] [facility], [address] [place], [place] [address], [place], [id number] , [place] tel: [phone] [facility] testing only (chief complaint) Age-related nuclear cataract, bilateral 2 MERCK JOHNATHON. [address], [address], [place], [id number] . tel: [phone] Referring Provider: JOHNATHON Queen MD, [address], [place], [address] . tel:[phone] [facility], [address] [facility] [address], [place], [id number] , [place] tel: [phone] [facility] a comprehensive exam (chief complaint) Age-related nuclear cataract, bilateral Dec-0 7- 1 ALEC DIEGO. [address], [address], [place], [id number] . tel: [phone] [facility], [address] [facility] [address], [place], [id number] , [place] tel: [phone] [facility] a comprehensive exam (chief complaint) Contusion of right eyelid and periocular area, initial encounterAge- related nuclear cataract, bilateral Feb-0 9 ALEC DIEGO. [address] [facility], [address], [place], [id number] . tel: [phone] [facility], [address] [facility], [place], [id number] , [place] tel: [phone] [facility] an intermediate exam (chief complaint) Age-related nuclear cataract, bilateral Jul-0 7 ALEC DIEGO. [address], [address], [place], [address] . tel: [phone] [facility], [address] [facility] [address], [place], [id number] , [place] tel: [phone] [facility] a comprehensive exam (chief complaint) Age-related nuclear cataract, bilateral Antolin-0 9-201 7 ALEC DIEGO. [address], [address], [place], [id number] . tel: [phone] [facility], [address] [facility] [address], [place], [id number] , [place] tel:[phone] [facility] a comprehensive exam (chief complaint) Cataract, Nuclear 4 ALEC DIEGO. [address], [address], [place], [address] . tel: [phone] [facility], [address], [place], [address] , [place] tel: [phone] [facility] Vitreous degeneration 3 [facility]. [address], [address], [place], [id number] . tel: [phone] [facility], [address], [place], [address] , [place] tel: [phone] [facility] Cataract, Nuclear 3 ALEC DIEGO. [address], [address], [place], [address] . tel: [phone] [facility], [address] [facility] [address], [place], [id number] , [place] tel: [phone] [facility] Senile nuclear sclerosis 2 ALEC DIEGO. [address] [facility], [address], [place], [address] . tel: [phone] Family History Family Member Type Diagnosis Age At Onset Father Problem (finding) diabetes mellitus type 2 Mother Problem (finding) diabetes mellitus type 2 Father Problem (finding) cataract Payers Payer name Insurance type Covered alliance party ID Authoriza tialessia(s) [facility] EXEMPT CI [id number] Social History Type Description Quantity Date Captured Comments Alcohol Use Details Unknown Caffeine Use Details Unknown Tobacco Use Status No Information Smoking Status Never smoker Sex Female Chief Complaint And Reason For Visit From encounter dated '10/02/2022 10:15'. a post op exam (chief complaint). Description: This 76 year old female presents today for an eye evaluation. The patient presents for a 1 week PO exam following a Yag capsulotomy, OS. The patient states that vision is getting better. No concerns. Reason For Referral Reason For Referral No Information History Of Present Illness Encounter Date Complaint History Of Prese nt Illness a post op exam This 76 year old female presents today for an eye evaluation. The patient presents for a 1 week PO exam following a Yag capsulotomy, OS. The patient states that vision is getting better. No concerns. a comprehensive exam This 76 yea r old female presents today for an eye evaluation. The patient presents for a comprehensive exam. The patient has had cataract surgery and since their last exam, the patient states that the vision has been about the same as last time. She has no concerns. Her glasses are a few months. a post op exam This 76 year old female presents today for an eye evaluation. The patient presents for a 1 month PO exam following RELACS cataract surgery, OS. The patient is done using their drops. The patient states that vision is frustrating due to so many floaters in vision. Can't tell if vision is any sharper because of them. No flashes of light. Seems like floaters make vision blurry. Does not want to have right eye done yet. Wants new prescription today. a post op exam This 76 year old female presents today for an eye evaluation. The patient presents because of the sudden onset of floaters and eye pain in the outer edge of the OS eye. The patient states the symptoms started this morning in the IOL surgery eye.Did see the floaters before the surgery but not sure if this is normal because she sees them more and there brighter.Denies of no loss of eye sight. a post op exam This 75 year old female presents today for an eye evaluation. The patient presents for a 1 week PO exam following RELACS cataract surgery, OS. The patient has been using their drops. The patient states that vision is improving. Likes how bright everything is with new eye. Patient has been to the clinic 3 times to have blood pressure checked. It has never been anything like what it was the day of surgery. Brought copies with her today. a post op exam This 75 year old female presents today for an eye evaluation. The patient presents for a POD #1 exam following RELACS cataract surgery, OS. The patient slept well and has been using their drops. The patient states that she slept good and no pain. testing only This 75 year old female presents today for an eye evaluation. All cataract testing measurements for OCT, IOL Master, Topography and Cassini OU. a comprehensive exam This 75 yea r old female presents today for an eye evaluation. The patient presents for a comprehensive exam and cataract evaluation. Since their last exam, the patient states their vision has maybe changed, but is not sure. She thinks that her last eye exam was 2016. She thinks that she got her glasses two years ago.*Patient okay coming back for cataract testing.* a comprehensive exam The 73 year old female presents for a comprehensive exam, F/U on the vision.On Friday, February 15, 2019 she fell and hit her head and since then has had eye pain in the OD eye. The skin around the eye is very tender and bruised.Denies of no flashes and no headache. an intermediate exam The 70 year old female presents for an intermediate exam , refraction OU with the new glasses.The new glasses just don't seem right and feels off on the right side. Likes her old glasses better. a comprehensive exam The 70 year old female presents for a comprehensive exam , F/U cataract check. Patient noticed decreased vision OU over the last year or so, distance>near. Reports no glare issues from lights. Feels like she has to continuously clean glasses. Reports some floaters but nothing that interferes with vision. Denies itchy, bindu, watering eyes. Has occassional shooting pains in eyes. Does not use any eye drops. a comprehensive exam The 68 year old female presents for a comprehensive exam , F/U cataract check.Glasses always seem dirty, cleans them several times a day. Prefers not to drive at night.Near vision is good. Functional Status Date Functional Assessmen t No Information Instructions Date Instruction Additional Infor nadege - Return in 1 year w yesenia Michael for Complete Exam/Dilated. Related to Presence of intraocular lens - New glasses prescr iption given, slight vision change only (optional change). Educational materials provided: refractive error. Related to Presence of intraocular lens - The risks, benefit s and alternatives to treatment were discussed and all questions were answered. Schedule laser capsulotomy. Related to Other secondary cataract, left eye - Return in [address] Michael for Complete Exam/Dilated. Related to Presence of intraocular lens - Dispense manifest refraction w /add. Related to Presence of intraocular lens - Return in [address] Michael for Refraction OS , IOL Post-op Short. Related to Presence of intraocular lens - Continue present management. R elated to Presence of intraocular lens - Continue treatment protocol and preop second eye for cataract surgery. Educational materials provided: cataracts. Related to Presence of intraocular lens - Continue treatment protocol and follow-up in one week. Related to Presence of intraocular lens - The risks, benefit s and alternatives were discussed and all questions were answered regarding cataract surgery. Schedule laser-assisted phacoemulsification with intraocular lens implantation and pre-existing astigmatism treatment, left eye first. When patient ready, will call us. August 2021? Related to Age-related nuclear cataract, bilateral - Observation. Inter vention not favored/indicated at this time. Related to Contusion of right eyelid and periocular area, initial encounter - Return in [address] Michael for Complete Exam/Dilated , Glare test. Related to Age-related nuclear cataract, bilateral - Observation. Inter vention not favored/indicated at this time. Related to Age-related nuclear cataract, bilateral - remake left spectacle lens Rel ated to Age-related nuclear cataract, bilateral - Return in [address] Michael for Complete Exam/Dilated. Related to Age-related nuclear cataract, bilateral - Dispense manifest refraction w /add. Related to Age-related nuclear cataract, bilateral - Return in [address] Michael for Complete Exam/Dilated. Related to Cataract, Nuclear - Dispense manifest refraction w /add. Related to Cataract, Nuclear - Return in [address] Michael for Complete Exam. 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 - The process of vitreous degeneration was discussed with the patient as well as the eye exam findings. I stressed the need to follow-up if there are new flashes, floaters or a loss of visual field looking like a shade or curtain. Educational materials provided:Flashers/floaters. Related to Vitreous Detachment - Return in [address] Michael for Complete Exam/Dilated. Related to Cataract, Nuclear Non-disabling catara ct OU. - Observation. Intervention not favored/indicated at this time. Related to Cataract, Nuclear - Return in [address] Michael for Complete Exam, Dilated Exam and Scheduling. Related to Cataract, Nuclear Non-disabling catara ct OU based on acuity and glare testing, despite the patient's sx's. Will wait for more disability to qualify for Medicare coverage. - Continue present management. Related to Cataract, Nuclear Assessments Type Assessment Date assessment Presence of intraocular lens Sep Patient Care Teams Name Effective Dates (start - stop) Status Members No Information
[2025-02-03] VITALS (9 sets, daily range): BP systolic 146–164; BP diastolic 74–102; PULSE 49–65; RESP 8–55; TEMP 36.7; O2SAT 91–98; BMI 29.3
--- OUTSIDE RECORDS SUMMARY | 2025-02-03 16:11 | XMS_ITS | Clinical Summary ---
[facility] Address [address] [place] [address] Care Team Providers Care Core Microarchitect Name Role Phone Unassigned, Provider Primary Care Provider Unava ilable Source Comments You are receiving this document as you are listed as the primary care provider,follow-up provider, or the patient has been referred to you for consultation.This is in compliance with the Medicare andThe [facility] EHR Incentive Program,which states Providers who transition their patient to another setting of careor provider of care or refers their patient to another provider of care shouldprovide summary care record for each transition of care or referral. mobileo Allergies Active Allergy Reactions Criticality Noted Date Comments Codeine Nausea And Vomiting High 12/27/2010 Penicillins Rash 12/27/2010 Medications Multiple Vitamin (MULTI-VITAMIN) tablet Take 1 Tablet by mouth. Active Acetaminophen 325 MG CAPS Take 1-2 Capsules (325-650 mg) by mouth. Active finasteride (PROPECIA) 1 MG tabletIndications :Female pattern hair loss TAKE ONE TABLET BY MOUTH ONCE DAILY 90 Tablet 3 3 Active primidone (MYSOLINE) 50 MG tabletIndications :Essential tremor (HRC) Take 0.5-1 Tablets (25-50 mg) by mouth every morning. For tremor 90 Tablet 3 3 Active ondansetron (ZOFRAN) 8 MG tablet Take 1 Tablet (8 mg) by mouth every 8 hours as needed. 3 Active anastrozole (ARIMIDEX) 1 MG tablet Take 1 Tablet (1 mg) by mouth. 3 Active loperamide (IMODIUM) 2 MG capsule Take 2 Capsules (4 mg) by mouth 4 times daily as needed. 3 Active clindamycin (CLEOCIN T) 1 % gel Apply topically. 3 Active acetaminophen (TYLENOL) 500 MG tablet Take 1,300 mg by mouth every 8 hours as needed. Active nitroglycerin (NITROSTAT) 0.4 MG sublingual tabletIndications :Other chest pain DISSOLVE 1 TABLET UNDER TONGUE NEEDED FOR CHEST PAIN. MAY REPEAT EVERY 5 MINUTES FOR A MAXIMUM OF 3 DOSES. 25 Tablet 3 Active metoprolol succinate (TOPROL XL) 25 MG 24 hour release tablet take 1 tablet by mouth twice daily. 180 Tablet 4 Active ELIQUIS 5 MG tabletIndications :Paroxysmal atrial fibrillation (HRC) TAKE 1 TABLET(5 MG) BY MOUTH TWICE DAILY 180 Tablet 4 Active Active Problems Problem Noted Date [...] 2 Overview (11/13/2020): Chest Right History of [place] (myocardial infarction) 11/13/2020 10/31/2021 Impingement syndrome, shoulder, left 05/16/2019 10/31/2021 Chronic left shoulder pain 05/14/2019 0 10/31/2021 Malignant neoplasm of upper- outer quadrant of right breast in female, estrogen receptor positive 06/20/2017 02/08/2019 Overview (04/15/2019): Right Breast CA, invasive ductal (IDC), grade III/III, mixed with DCIS (G3, solid/ cribriform), dx 06/19/2017. AJCC stage IIA (pT2 N0 M0). ER/ FL +ve (99 & 86%), HER2 IHC -ve [...] and cartilage 05/04/2009 08/12/2017 Overview: Osteopenia Immunizations Immunization Administration Dates Next Due Td (7+ yrs) [...] Answer Date Recorded PHQ-2 Score 6 12/06/2021 Comments No Sex and Gender Information Value Date Recorded Sex Assigned at Not on file Legal Sex Female 12:48 PM CDT Gender Identity Not on file Sexual Orientation Not on file Last Filed Vital Signs Vital Sign Reading Time Taken Comments Blood Pressure 120/62 02/03/2023 8:25 AM CDT Pulse 68 02/03/2023 8:25 AM CDT Temperature 36.9 C (98.5 F) 02/03/2023 8:25 AM CDT Respiratory Rate 18 05/29/2022 10: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 Oxygen Saturation 97% 01/02/2023 8:31 AM CDT Inhaled Oxygen Concentration - - Weight 73 kg (161 lb) 02/03/2023 8:25 AM CDT Height 148 cm (4' 10.27) 12/03/2022 10:29 AM CD T Body Mass Index 33.34 12/03/2022 10:29 AM CDT Plan of Treatment Health Maintenance Due Date Last Done Comments Pneumococcal Vaccine 50+ Yrs (1 of 1 - PCV) 11/17/1993 Zoster/Shingles Vaccine (1 of 2) 11/17/1993 RSV Vaccine (1 - 1-dose 75+ series) 11/17/2018 COVID-19 Vaccine (1 - season) 2024 Medicare Annual Wellness Visit 06/16/2024 12/03/2022, 12/04/2021, 11/07/2020, Additional history exists Influenza Vaccine (#1) 2025 DTaP/Tdap/Td Vaccine (2 - Tdap) 02/15/2029 02/15/2019, 04/09/2005 Colonoscopy Screening Completed Completed 12/04/2020 (Completed), 12/04/2020 (Completed), 03/22/2014 Dexa Completed 01/28/2023, 09/16, 10/13/2018, Additional history exists HepA Vaccine Aged Out No longer eligi ble based on patient's age to complete this topic HepB Vaccine Aged Out No longer eligi ble based on patient's age to complete this topic Hib Vaccine Aged Out No longer eligi ble based on patient's age to complete this topic MCV4 Vaccine Aged Out No longer eligi ble based on patient's age to complete this topic Meningococcal B Vaccine Aged Out No l onger eligible based on patient's age to complete this [...] mineral density study was performed using the [employer] ([id number]). The results of the study expressed as [...] mineral density study was performed using the [employer] Horizon Wi ([id number]). 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
--- OUTSIDE RECORDS SUMMARY | 2025-02-03 16:12 | XMS_ITS | Clinical Summary ---
Author Organization [facility] Address [address] [place] [address] Care Team Providers Care Export Specialist Name Role Phone Sumanth Raygoza MD Unavailable Tamara Coleman RN Unavailable [phone] Ayde Taveras MD Unavailable Jacy Overton ROLL MECHANIC Unavailable Annabel Holt MD Unavailable [phone] Melvin Gregory LGSW Unavailable Mike Scott Primary Care Provider Allergies Active Allergy Reactions Criticality Noted Date Comments Codeine Nausea And Vomiting High 12/27/2010 Morphine GI Upset 10/18/2015 Penicillins Rash 12/27/2010 Medications * This document contains information received from the source organization and may not represent a complete record from that organization. cholecalciferol (VITAMIN D) 1,000 unit capsule Take 1 capsule by mouth once daily. 0 9 Active nitroglycerin (NITROSTAT) 0.4 mg sublingual tabletIndication s:Other chest pain Place 1 tablet under the tongue every 5 minutes if needed for Chest Pain. 25 tablet 9 Active ACETAMINOPHEN EXTRA STRENGTH ORAL Take 1,300 mg by mouth every 8 hours if needed. Active rosuvastatin (Crestor) 20 mg tabletIndication s:Coronary artery disease involving [place] coronary artery of [place] heart with angina pectoris,Chest pain, unspecified type,Dyslipidemi a Take 1 Tablet (20 mg) by mouth at bedtime. 90 Tablet 3 4 Active furosemide (LASIX) 20 mg tabletIndication s:Chest pain, unspecified type,Bilateral leg edema Take 1 Tablet (20 mg) by mouth once daily in the morning. 90 Tablet 3 4 Active Additional Information Patient taking differently:20 mg OralDAILY PRN, Using as needed, Reported on 01/14/2025 metoprolol succinate (Toprol XL) 50 mg sustained-releas e tabletIndication s:Chest pain, unspecified type,Paroxysmal atrial fibrillation (HC),Palpitation Take 1 Tablet (50 mg) by mouth once daily. 90 Tablet 3 4 Active Eliquis 5 mg tabletIndication s:Paroxysmal atrial fibrillation (HC) Take 1 Tablet (5 mg) by mouth two times daily. 4 Active anastrozole (ARIMIDEX) 1 mg tabletIndication s:Malignant neoplasm of right female breast, unspecified estrogen receptor status, unspecified site of breast (HC) Take 1 Tablet (1 mg) by mouth once daily. 90 Tablet 3 5 Active Active Problems Patient Care Coordination No [...] comorbidity 04/18/2011 CAD (coronary artery disease) 12/31/2010 Overview (01/09/2024): - Stenting to first diagonal 12/28/2010 - 11/03/23 CCTA: 1. Approximate 70% stenosis of the ostial RCA. 2. Moderate in stent restenosis of the D1 stent distally . - GERD (gastroesophageal reflux disease) 1 Paroxysmal supraventricular tachycardia 04/06/20 10 Anxiety 05/04/2009 Dyslipidemia Recurrent malignant neoplasm of right breast Cancer Staging:Clinical stage from 02/01/2021:Stage Unknown(rcT4, rcNX, rcM0, G3, ER+, SC+, HER2-) - Signed by Jacy Morgan MD on 02/01/2021 Resolved Problems Problem Noted Date Diagnosed Date Resolved Date Right Breast Cancer, stage IIA 06/20/2017 02/08/2019 Overview (08/12/2017): Right Breast CA, invasive ductal (IDC), grade III/III, mixed with DCIS (G3, solid/ cribriform), dx 06/19/2017. AJCC stage IIA (pT2 N0 M0). 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 06/21/2010 08/11/2017 Osteopenia 05/04/2009 08/12/2017 Other and unspecified hyperlipidemia 05/04/2009 11/01/2013 Overview (10/22/2013): Hyperlipidemia Encounters Date Type Department Care Team Description 01/14/2025 3:30 PM CDT Office Visit [facility] [id number] [place] [address] [address] [place] [address] Pawel Jhaveri MD, PhD Follow Up (FOLLOW UP, CARDIAC MR DONE 12/14, DX: [facility] ([facility]Dx: Paroxysmal atrial fibrillation (HC) [I48.0]; Coronary artery disease involving [place] coronary artery of [place] heart with angina pectoris [I25.119]; Documented abnormality on prior echocardiogram [R93.1]; Cerebrovascular accident (CVA), unspecified mechanism (HC) [I63.9]; Left atrial mass [I51.89] //Pt denies cardiac sx) 01/14/2025 Travel 01/04/2025 11:30 AM CDT Ancillary Procedure [facility] [address] [place] [address] 01/04/2025 10:30 AM CDT Office Visit [facility] [address] [place] [address] Marlon Oreilly, Hip Pain/problem (Left hip) 01/04/2025 Travel 12/31/2024 11:30 AM CDT Office Visit [facility] [address] [facility] [place] [address] Figueroa Beavers MBBS Follow Up (Recurrent malignant neoplasm of right breast) 12/31/2024 Travel 12/23/2024 7:08 AM CDT - 12/23/2024 11:59 PM CDT Hospital Encounter [facility] [address] [place] [address] Jacy Overton, ROLL MECHANIC Recurrent malignant neoplasm of right breast (HC) [C50.911]; Malignant neoplasm of overlapping sites of right breast in female, estrogen receptor positive (HC) 12/22/2024 Travel 12/21/2024 Telephone [facility] [address] [place] [address] [facility]ointment 12/14/2024 2:14 PM CDT - 12/14/2024 11:59 PM CDT Hospital Encounter [facility] [address] [place] [address] Pawel Jhaveri MD, PhD Documented abnormality on prior echocardiogram 12/14/2024 Travel 12/14/2024 Telephone [facility] [address] [place] [address] [facility]ointment 11/29/2024 Telephone [facility] [address] [place] [address] Jacy Overton ROLL MECHANIC Lab 11/17/2024 1:00 PM CDT Orders Only [facility] [address] [facility] [address] [place] [address] Lab 11/17/2024 11:00 AM CDT Office Visit [facility] [address] [facility] [address] [place] [address] Pawel Jhaveri MD, PhD Follow Up (ANNUAL F/U. PT states feeling good. No cardiac symptoms today. Nothing to note today.) 11/17/2024 Travel from Last 3 Months Immunizations Immunization Administration Dates Next Due Td, Preservative Free [...] Never Alcohol Use Standard Drinks/Week Comments Yes 4 (1 standard drink = 0.6 oz pur e alcohol) PHQ-2 Answer Date Recorded PHQ-2 Score 0 08/17/2018 Financial Resource Strain Answer Date R ecorded Difficulty of Paying Living Expenses Not on file 06/16/2021 Difficulty of Paying Living Expenses Not on file 06/16/2021 Interpersonal Safety Answer Date Record ed Are you being hit, kicked, p ushed or yelled at (see row info)? No 01/09/2024 Interpersonal Safety Abuse 12 - 18 Not on file 01/09/2024 Interpersonal Safety Ambulatory Vulnerability No t on file 01/09/2024 Comments No Sex and Gender Information Value Date Recorded Sex Assigned at Not on file Legal Sex Female 8:00 AM [employer] Gender Identity Not on file Sexual Orientation Not on file Obstetrics History Para Term AB IAB SAB Ectopic Multiple Livin g Live Births 2 2 2 2 Date Outcome GA Total Labor Labor/2nd/3rd Weight Sex Type Anes PTL Jada A1 A5 Name Clin Term Term Last Filed Vital Signs Vital Sign Reading Time Taken Comments Blood Pressure 128/78 01/14/2025 3:21 PM CDT Pulse 68 01/14/2025 3:21 PM CDT Temperature 36.4 C (97.6 F) 12/31/2024 11:20 AM CDT Respiratory Rate 18 12/31/2024 11:20 AM CDT Oxygen Saturation 96% 01/14/2025 3:21 PM CDT Inhaled Oxygen Concentration - - Weight 75.8 kg (167 lb) 01/14/2025 3:21 PM CDT Height 152.4 cm (5') 01/14/2025 3:21 PM CDT Body Mass Index 32.61 01/14/2025 3:21 PM CDT Plan of Treatment Upcoming Encounters Date Type Department Care Team (Late st Contact Info) Description 02/04/2025 2:15 PM CDT Office Visit [facility] [address] [place] [address] Jose Longo MD [address] [place] [address] 04/07/2025 10:15 AM CDT Orders Only [facility] [address] [place] [address] [place] 04/07/2025 11:00 AM CDT Ancillary Procedure [facility] [address] [place] [address] 04/12/2025 11:30 AM CDT Office Visit [facility] [address] [place] [address] Annabel Holt MD [address] [place] [address] Health Maintenance Due Date Last Done Comments COVID-19 vaccine series (#1) 11/17/1950 Pneumococcal series for age 50+ (1 of 2 - PCV) 11/17/1962 Zoster (shingles) series for age 50+ (1 of 2) 11/17/1962 RSV vaccine for adults or (1 - 1-dose 75+ series) 11/17/2018 Medicare Wellness for age 65+ 07/29/2019 07/28/2018 Depression screening for age 12+ 07/30/2019 07/30/2018, 07/28/2018, 01/09/2017 Influenza Vaccine (#1) 2025 BMI (ht and wt on same day) for age 18+ 01/14/2026 01/14/2025, 11/17/2024, 01/14/2024, Additional history exists Tetanus booster 02/15/2029 02/15/2019, 04/09/2005 DEXA/DXA scan for age 65+ Completed 2022, 10/13/2018, 10/13/2018, Additional history exists Hepatitis B series for 19+ Aged Out N o longer eligible based on patient's age to complete this topic Medical Devices Implanted Type Area Stock Buyer Device Identifier Shelf Expiration Date Model / Serial / Lot [id number] betsy Breast 500cc Natrelle Tab Mod Extra Prjctn Saline Implanted:Qty: 1 on 07/16/2017 by Serafin Cuevas MD at [facility] Explanted:at [facility] (Quantity not on file) Right: Breast [employer] 133MX-13-T # / [id number] / [id number] betsy Breast 500cc Natrelle Smooth Mod Extra W/Fourte Implanted:Qty: 1 on 01/08/2021 by Serafin Cuevas MD at [facility] Explanted:at [facility] (Quantity not on file) Right: Breast [employer] 05/31/2024 133S-MX-13 -T / [id number] / Procedures Procedure Name Priority Date/Time Associated Diagnosis Comments XR HIP 2 OR 3 VIEWS W PELVIS LEFT Routine 01/04/2025 11:04 AM CDT Left hip pain XR MAMMO ATUL UNI SCREEN LEFT Routine 12/23/2024 11:55 AM CDT Recurrent malignant neoplasm of right breast (HC) [C50.911] PET CT SKULL BASE TO MID THIGH SUBSEQUENT TREAT Routine 12/23/2024 9:30 AM CDT Recurrent malignant neoplasm of right breast (HC) [C50.911] Malignant neoplasm of overlapping sites of right breast in female, estrogen receptor positive (HC) CBC WITH AUTO DIFFERENTIAL Routine 12/22/2024 10:14 AM CDT Recurrent malignant neoplasm of right breast (HC) COMP METABOLIC PANEL Routine 12/22/2024 10:14 AM CDT Recurrent malignant neoplasm of right breast (HC) CA 15-3 Routine 12/22/2024 10:14 AM CDT Recurrent malignant neoplasm of right breast (HC) MR CARDIAC WO Routine 12/14/2024 4:04 PM CDT Documented abnormality on prior echocardiogram SC BLOOD COUNT COMPLETE AUTO&AUTO DIFRNTL WBC Routine 11/17/2024 12:46 PM CDT Recurrent malignant neoplasm of right breast (HC) [C50.911] COMP METABOLIC PANEL Routine 11/17/2024 12:34 PM CDT Recurrent malignant neoplasm of right breast (HC) [C50.911] CA 15-3 Routine 11/17/2024 12:34 PM CDT Recurrent malignant neoplasm of right breast (HC) [C50.911] LIPID PANEL W REFLEX MEASURED LDL Routine 11/17/2024 12:34 PM CDT Paroxysmal atrial fibrillation (HC) Coronary artery disease involving [place] coronary artery of [place] heart with angina pectoris Documented abnormality on prior echocardiogram Cerebrovascular accident (CVA), unspecified mechanism (HC) Left atrial mass XR DXA BONE DENSITY 2 SITES AXIAL Routine 01/28/2023 2:56 PM CDT Recurrent malignant neoplasm of right breast (HC) Encounter for monitoring aromatase inhibitor therapy Osteopenia of multiple sites from Last 3 Months or Most Recently Relevant to Health Maintenance Results * XR HIP 2 OR 3 VIEWS W PELVIS LEFT (01/04/2025 11:04 AM CDT) Anatomical Region Laterality Modality HIPS, HIPL, Pelvis Computed Radi ography 01/05/2025 3:49 PM CDT Impressions 01/05/2025 3:49 PM CDT 1. No acute osseous injuries or abnormalities are noted. Dictated by: Marshall Antoine MD @ 01/05/2025 15:49:28 (Electronically Signed) Narrative 01/05/2025 3:49 PM CDT For Patients: As a result of the Cures Act, medical imaging exams and procedure reports are released immediately into your electronic medical record. You may view this report before your referring provider. If you have questions, please contact your health care provider. INDICATION: Left hip pain TECHNIQUE: Pelvis radiograph, Hip radiograph 3 views left COMPARISON: None FINDINGS: Bone: No acute fractures or aggressive bone lesions are identified. Moderate diffuse osteopenia is noted. Joint: The hip joints are unremarkable. The visualized sacroiliac joints are unremarkable in appearance. The pubic symphysis is normal in appearance. Soft tissue: Unremarkable. No radiopaque foreign bodies are seen. Procedure Note Marshall Antoine MD - 01/05/2025 For Patients: As a result of the Cures Act, medical imagingexams and procedure reports are released immediately into your electronicmedical record. You may view this report before your referring provider.If you have questions, please contact your health care provider. INDICATION: Left hip pain TECHNIQUE: Pelvis radiograph, Hip radiograph 3 views left COMPARISON: None FINDINGS: Bone: No acute fractures or aggressive bone lesions are identified.Moderate diffuse osteopenia is noted. Joint: The hip joints are unremarkable. The visualized sacroiliac jointsare unremarkable in appearance. The pubic symphysis is normal inappearance. Soft tissue: Unremarkable. No radiopaque foreign bodies are seen. IMPRESSION: 1. No acute osseous injuries or abnormalities are noted. Dictated by: Marshall Antoine MD @ 01/05/2025 15:49:28 (Electronically Signed) us Marlon Oreilly DO GENERAL IMAGING Final Resu lt * XR MAMMO ATUL UNI SCREEN LEFT (12/23/2024 11:55 AM CDT) Anatomical Region Laterality Modality BREASTS, Breast Left Left Mammography Impressions 12/24/2024 7:27 AM CDT There is no radiographic evidence for malignancy. Recommend annual mammograms. MAMMOGRAM ASSESSMENT: ACR 2 Benign PATIENTS: You will also receive a letter with your examination results in an easy to read format. If you have questions about your results, please contact your referring provider. Narrative 12/24/2024 7:27 AM CDT For Patients: As a result of the Cures Act, medical imaging exams and procedure reports are released immediately into your electronic medical record. You may view this report before your referring provider. If you have questions, please contact your health care provider. XR MAMMO ATUL UNI SCREEN LEFT [[id number]] CLINICAL HISTORY: This is an asymptomatic 79 y.o. patient. INDICATION FOR EXAM: Mammogram Screening. TECHNIQUE: CC and MLO views were obtained. This study was evaluated with the assistance of Computer-Aided Detection. Breast Tomosynthesis was used in interpretation. COMPARISON FILMS: Yes 01/14/24 [facility] FINDINGS: There are scattered areas of fibroglandular density. No suspicious masses or microcalcifications. There are post surgical changes of left breast. us Jacy Overton ROLL MECHANIC MAMMO Final Result * PET CT SKULL BASE TO MID THIGH SUBSEQUENT TREAT (12/23/2024 9:30 AM CDT) Anatomical Region Laterality Modality Positron Emissio n Tomography (PET) 12/24/2024 12:4 0 AM CDT Impressions 12/24/2024 12:40 AM CDT 1. No evidence of FDG avid malignancy. 2. Increased moderate to intense grossly symmetric FDG uptake in the bilateral palatine tonsils, likely inflammatory. Dictated by Massimo Cortes MD @ 12/24/2024 12:40:21 AM (Electronically Signed) Narrative 12/24/2024 12:40 AM CDT For Patients: As a result of the Century Cures Act, medical imaging exams and procedure reports are released immediately into your electronic medical record. You may view this report before your referring provider. If you have questions, please contact your health care provider. EXAM: FDG PET-CT Skull Base to Thighs CLINICAL INFORMATION: 79-year-old woman with history of breast cancer. Restaging TECHNIQUE: Radiopharmaceutical: 18F-fluorodeoxyglucose (18F-FDG) Dose: 13.09 milliCurie. Blood glucose: 101 mg/dL. Image acquisition: At approximately 60 minutes following IV tracer administration via a right antecubital vein, positron emission tomography was performed from the skull base through the mid thigh. Non-contrast low-dose helical CT imaging was performed over the same range without breath-hold for attenuation correction of PET images and anatomic correlation; it is neither sufficient, nor should it be substituted for diagnostic purposes. COMPARISON: FDG PET-CT 05/20/2024 FINDINGS: Mediastinal blood pool FDG uptake: SUVMax 2.7 (image 87) Liver background parenchymal FDG uptake: SUVMax 3.6 (Image 136) PET Findings: Right mastectomy with reconstruction. No abnormal focal increased FDG uptake in the right chest wall. Post lumpectomy changes in the left breast. Decreased faint FDG uptake in the left upper outer breast, SUVMax 1.2 (image 75) previously SUV max 1.8 (image 76). Increased moderate to intense grossly symmetric FDG uptake in the bilateral palatine tonsils, SUVmax 11.2 in the left palatine tonsil (image 37), likely inflammatory. No abnormal FDG avid lymphadenopathy. No abnormal FDG uptake in the visualized skeleton. Tracer uptake elsewhere is physiologic. Non-PET findings: Left lens replacement. Small mucous inclusion cyst in the right maxillary sinus. Coronary artery calcifications. Atherosclerotic calcifications of the thoracic and abdominal aorta. Moderate hiatal hernia. Cholelithiasis. Right renal cyst. Colonic diverticulosis. Multilevel degenerative changes in the spine. Grade 1 anterolisthesis of L3-L4. Procedure Note Massimo Cortes MD - 12/24/2024 For Patients: As a result of the Century Cures Act, medical imagingexams and procedure reports are released immediately into your electronicmedical record. You may view this report before your referring provider.If you have questions, please contact your health care provider. EXAM: FDG PET-CT Skull Base to Thighs CLINICAL INFORMATION: 79-year-old woman with history of breast cancer. Restaging TECHNIQUE: Radiopharmaceutical: 18F-fluorodeoxyglucose (18F-FDG) Dose: 13.09 milliCurie. Blood glucose: 101 mg/dL. Image acquisition: At approximately 60 minutes following IV traceradministration via a right antecubital vein, positron emission tomographywas performed from the skull base through the mid thigh. Ybz-mkxhdzruppk-cxpq helical CT imaging was performed over the same range withoutbreath-hold for attenuation correction of PET images and anatomiccorrelation; it is neither sufficient, nor should it be substituted fordiagnostic purposes. COMPARISON: FDG PET-CT 05/20/2024 FINDINGS: Mediastinal blood pool FDG uptake: SUVMax 2.7 (image 87) Liver background parenchymal FDG uptake: SUVMax 3.6 (Image 136) PET Findings: Right mastectomy with reconstruction. No abnormal focal increased FDGuptake in the right chest wall. Post lumpectomy changes in the left breast. Decreased faint FDG uptake inthe left upper outer breast, SUVMax 1.2 (image 75) previously SUV max 1.8(image 76). Increased moderate to intense grossly symmetric FDG uptake in thebilateral palatine tonsils, SUVmax 11.2 in the left palatine tonsil (image37), likely inflammatory. No abnormal FDG avid lymphadenopathy. No abnormal FDG uptake in the visualized skeleton. Tracer uptake elsewhere is physiologic. Non-PET findings: Left lens replacement. Small mucous inclusion cyst in the right maxillarysinus. Coronary artery calcifications. Atherosclerotic calcifications ofthe thoracic and abdominal aorta. Moderate hiatal hernia. Cholelithiasis.Right renal cyst. Colonic diverticulosis. Multilevel degenerative changesin the spine. Grade 1 anterolisthesis of L3-L4. IMPRESSION: 1. No evidence of FDG avid malignancy. 2. Increased moderate to intense grossly symmetric FDG uptake in thebilateral palatine tonsils, likely inflammatory. Dictated by Massimo Cortes MD @ 12/24/2024 12:40:21 AM (Electronically Signed) us Jacy Overton NP PET Final Result * CA 15-3 (12/22/2024 10:14 AM CDT) Only the most recent of2 resultswithin the time period is included. CA 15-3 13 <32 U/mL [facility] brittany Multani Comment: This test was performed using the Siemens ([employer]) chemiluminescent method. Values obtained from different assay methods cannot be used interchangeably. CA 15-3 levels, regardless of value, should not be interpreted as absolute evidence of the presence or absence of disease. Blood BLOOD SPECIMEN / Unknown 12/22/2024 10:14 AM CDT 12/22/2024 10:14 AM CDT us Jacy Overton NP SEND OUTS Final Result [employer] [facility] [address] [place] [address], [facility] [address] [place] [address] * (ABNORMAL) CBC AND DIFFERENTIAL (12/22/2024 10:14 AM CDT) Only the most recent of2 resultswithin the time period is included. WHITE BLOOD CELL COUNT 4.3 3.8 - 10.8 Thousand/u L [facility] RED BLOOD CELL COUNT 4.37 3.80 - 5.10 Million/uL [facility] HEMOGLOBIN 13.6 11.7 - 15.5 g/dL [facility] HEMATOCRIT 42.6 35.0 - 45.0 % [facility] MCV 97.5 80.0 - 100.0 fL [facility] MCH 31.1 27.0 - 33.0 pg [facility] MCHC 31.9(L) 32.0 - 36.0 g/dL [facility] Comment: For adults, a slight decrease in the calculated MCHC value (in the range of 30 to 32 g/dL) is most likely not clinically significant; however, it should be interpreted with caution in correlation with other red cell parameters and the patient's clinical condition. RDW 13.7 11.0 - 15.0 % [facility] PLATELET COUNT 199 140 - 400 Thousand/u L [facility] MPV 10.5 7.5 - 12.5 fL [facility] ABSOLUTE NEUTROPHILS 2,107 1,500 - 7,800 cells/uL [facility] ABSOLUTE LYMPHOCYTES 1,432 850 - 3,900 cells/uL [facility] ABSOLUTE MONOCYTES 460 200 - 950 cells/uL [facility] ABSOLUTE EOSINOPHILS 249 15 - 500 cells/uL [facility] ABSOLUTE BASOPHILS 52 0 - 200 cells/uL [facility] NEUTROPHILS 49 % [facility] LYMPHOCYTES 33.3 % [facility] MONOCYTES 10.7 % [facility] EOSINOPHILS 5.8 % [facility] BASOPHILS 1.2 % [facility] Blood BLOOD SPECIMEN / Unknown 12/22/2024 10:14 AM CDT 12/22/2024 10:14 AM CDT us Jacy Ham Chiragseveriano IRIS HEMATOLOGY Final Result [employer] [facility] [address] [place] [address], [facility] [address] [place] [address] * (ABNORMAL) COMP METABOLIC PANEL (12/22/2024 10:14 AM CDT) Only the most recent of2 resultswithin the time period is included. [facility] GLUCOSE 101(H) 65 - 99 mg/dL [facility] Comment: Fasting reference interval For someone without known diabetes, a glucose value between 100 and 125 mg/dL is consistent with prediabetes and should be confirmed with a follow-up test. UREA NITROGEN (BUN) 14 7 - 25 mg/dL [facility] CREATININE 0.70 0.60 - 0.95 mg/dL [facility] EGFR 87 > OR = 60 mL/min/1. 73m2 [facility] BUN/CREATININE RATIO SEE NOTE: 6 - 22 (calc) [facility] Comment: Not Reported: BUN and Creatinine are within reference range. SODIUM 141 135 - 146 mmol/L [facility] POTASSIUM 4.6 3.5 - 5.3 mmol/L [facility] CHLORIDE 105 98 - 110 mmol/L [facility] CARBON DIOXIDE 31 20 - 32 mmol/L [facility] CALCIUM 9.8 8.6 - 10.4 mg/dL [facility] PROTEIN, TOTAL 6.7 6.1 - 8.1 g/dL [facility] ALBUMIN 4.2 3.6 - 5.1 g/dL [facility] GLOBULIN 2.5 1.9 - 3.7 g/dL (calc) [facility] ALBUMIN/GLOBULIN RATIO 1.7 1.0 - 2.5 (calc) [facility] BILIRUBIN, TOTAL 0.6 0.2 - 1.2 mg/dL [facility] ALKALINE PHOSPHATASE 69 37 - 153 U/L [facility] AST 15 10 - 35 U/L [facility] ALT 12 6 - 29 U/L [facility] Blood BLOOD SPECIMEN / Unknown 12/22/2024 10:14 AM CDT 12/22/2024 10:14 AM CDT us Jacy [place] ROLL MECHANIC CHEMISTRY Final Result Performing Organization Address City/State/[facility] Co de Phone Number [facility] [address] [place] [address], [facility] [address] [place] [address] * MR CARDIAC WO (12/14/2024 4:04 PM CDT) Anatomical Region Laterality Modality HEART, THORAX Magnetic Resonan ce 12/14/2024 3:28 PM CDT Narrative 12/14/2024 3:53 PM CDT [facility] [place] [facility] CMR Report Name: ALEXANDRA GORMAN : Scan Date: Accession Number: [id number] Status: Amended Electronically signed by Eric Toribio 16:06:27 VITALS ===== HEIGHT: 60 in (152 cm) WEIGHT: 162 lbs (73 kgs) BSA: 1.71 m^2 FINAL IMPRESSION ===== 1. Prominent hiatal hernia. A. Transthoracic echo imaging through the H/H is the likely cause of the artifact (or presumed LA mass). 2. Normal left ventricular systolic function (assessed with long axis cines), LVEF 72%. 3. Normal right ventricular systolic function (seen in limited views). 4. Normal pericardium. 5. Normal lungs. 6. Normal aortic size. SUMMARY ===== LV/RV SEPTUM: The LV/RV septum is normal. LA/RA SEPTUM: The LA/RA septum is normal. LEFT ATRIUM: The left atrium is normal. RIGHT ATRIUM: The right atrium is normal. PERICARDIUM: The pericardium is normal. PLEURAL EFFUSION: There is no pleural effusion. AORTIC VALVE: The aortic valve is normal. MITRAL VALVE: The mitral valve is normal. AORTIC ROOT: The aortic root is normal. OTHER FINDINGS: Prominent hiatal hernia. Normal IVC size. SCAN INFO ===== GENERAL ----- --- SCANNER CARPENTER: SIEMENS MODEL: Aera SETUP REASON(S) FOR SCAN: Other non-thrombus mass REFERRING PHYSICIAN: PAWEL JHAVERI ATTENDING PHYSICIAN: PAWEL JHAVERI BILLING ===== Patient Account [id number] ICD10 Codes R93.1 Report generated by Pre[employer], a product of [employer] Procedure Note Eric Toribio MD - 12/14/2024 [facility] [place] [facility] CMR Report Name: ALEXANDRA GORMAN : Scan Date: Accession Number: [id number] Status: Amended Electronically signed by Eric Toribio 16:06:27 VITALS ===== HEIGHT: 60 in (152 cm) WEIGHT: 162 lbs (73 kgs) BSA: 1.71 m^2 FINAL IMPRESSION ===== 1. Prominent hiatal hernia. A. Transthoracic echo imaging through the H/H is the likely causeof the artifact (or presumed LA mass). 2. Normal left ventricular systolic function (assessed with long axiscines), LVEF 72%. 3. Normal right ventricular systolic function (seen in limited views). 4. Normal pericardium. 5. Normal lungs. 6. Normal aortic size. SUMMARY ===== LV/RV SEPTUM: The LV/RV septum is normal. LA/RA SEPTUM: The LA/RA septum is normal. LEFT ATRIUM: The left atrium is normal. RIGHT ATRIUM: The right atrium is normal. PERICARDIUM: The pericardium is normal. PLEURAL EFFUSION: There is no pleural effusion. AORTIC VALVE: The aortic valve is normal. MITRAL VALVE: The mitral valve is normal. AORTIC ROOT: The aortic root is normal. OTHER FINDINGS: Prominent hiatal hernia. Normal IVC size. SCAN INFO ===== GENERAL ----- --- SCANNER CARPENTER: SIEMENS MODEL: Aera SETUP REASON(S) FOR SCAN: Other non-thrombus mass REFERRING PHYSICIAN: PAWEL JHAVERI ATTENDING PHYSICIAN: PAWEL JHAVERI BILLING ===== Patient Account [id number] ICD10 Codes R93.1 Report generated by Pre[employer], a product of [employer] Pawel Jhaveri MD, PhD MR [place] Result - Final * (ABNORMAL) LIPID PANEL W REFLEX MEASURED LDL (11/17/2024 12:34 PM CDT) CHOLESTEROL, TOTAL 180 <200 mg/dL [facility] HDL CHOLESTEROL 77 > OR = 50 mg/dL [facility] TRIGLYCERIDES 169(H) <150 mg/dL [facility] LDL-CHOLESTEROL 76 mg/dL (calc) [facility] Comment: Reference range: <100 Desirable range <100 mg/dL for primary prevention; <70 mg/dL for patients with CHD or diabetic patients with > or = 2 CHD risk factors. LDL-C is now calculated using the Michelle calculation, which is a validated novel method providing better accuracy than the Friedewald equation in the estimation of LDL-C. Yeison SS et al. KATELIN. 2013;310(19): 1421-6317 (http://education.Markr/faq/VHA050) CHOL/HDLC RATIO 2.3 <5.0 (calc) [facility] NON HDL CHOLESTEROL 103 <130 mg/dL (calc) [facility] Comment: For patients with diabetes plus 1 major ASCVD risk factor, treating to a non-HDL-C goal of <100 mg/dL (LDL-C of <70 mg/dL) is considered a therapeutic option. Blood BLOOD SPECIMEN / Unknown 11/17/2024 12:34 PM CDT 11/17/2024 12:35 PM CDT Narrative [facility] - 2024 3:36 AM CDT MULTIPLE TESTING PRIORITIES; ROUTINE TESTING TO FOLLOW. Pawel Jhaveri MD, PhD CHEMISTRY Fin al Result [employer] [facility] [address] [place] [address], [facility] [address] [place] [address] * XR DXA BONE DENSITY 2 SITES AXIAL (01/28/2023 2:56 PM CDT) Anatomical Region Laterality Modality Spine, HIPS, HIPL, HIPR Computed Radiography 01/28/2023 4:07 PM CDT Impressions 01/29/2023 9:14 AM CDT Osteopenia. RECOMMENDATIONS: The National Osteoporosis Foundation recommends pharmacologic treatment for patients with T-scores of -2.5 or less, patients with prior history of fragility fractures, or patients with 10-year probability of greater than 3% at hips or greater than 20% of suffering major osteoporotic fractures. Recommend continued optimization of calcium and vitamin D intake through dietary means and/or supplementation and regular exercise. Federico Berry M.D. Body/Diagnostic Radiologist [facility] [email or web address] EVONNE/aj / Narrative 01/29/2023 9:14 AM CDT For Patients: Results are automatically released to your [employer]) account once available, in compliance with federal regulations. This means that you may see your results before your provider has had a chance to review them. Please allow 2-3 business days for your provider to comment on the results. XR DXA Bone Mineral Density (BMD) EXAM LOCATION: [address] [id number] PATIENT NAME: Alexandra Gorman DATE OF : 1945 EXAM DATE: 01/28/2023 REQUESTING PROVIDER: Georgina Roberts PA GENDER AT : female HEIGHT: 5 feet 0 inches WEIGHT: 164 pounds MENOPAUSAL STATUS: Postmenopausal RACE/ETHNICITY: White RISK FACTORS: Cancer Treatment and White Race [...] two scanners are made by the same real estate job titles. PROCEDURE: Dual-energy x-ray absorptiometry performed with routine [...] of hip fracture: 2.1%. Georgina GARCES DEXA Final Resu lt from Last 3 Months or Most Recently Relevant to Health Maintenance Insurance MEDICARE PROVIDER BASED [facility] MEDICARE PART A HB ONLY [employer] MEDICARE ADVANTAGE MR MEDICARE PROVIDER BASED MR BC PASCUA YAQUI * Guarantor: [employer] Account Type Relation to Patient Date of Phone Billing Address [facility] [address] [place] [address] UCARE MEDICARE ADVANTAGE MR HUMANA CHOICE PPO MR Advance Directives * Full Code (Latest Code [...] 10:44 AM 10/16/2018 6:08 PM Care Teams Export Specialist Relationship Specialty Start Date End Date Mike Scott MBBS [address] [place] [address] PCP - General Family Practice 09/08/24 Sumanth Raygoza MD [address] [place] [address] Radiation Oncology 01/24/21 Tamara [place], RN [address] [facility] [address] [place] [address] Nurse Navigator - Oncology Registered Nurse 02/20/23 Ayde Taveras MD [address] [facility] [address] [place] [address] Surgery - General 04/23/18 Jacy [place], ROLL MECHANIC [address] [place] [address] Nurse Practitioner Hematology and Oncology 07/07/23 Annabel Holt MD [address] [place] [address] Medical Oncologist Hematology and Oncology 07/07/23 Melvin Gregory LGSW [address] [place] [address] Dog Raiser Oncology 09/15/23
--- OUTSIDE RECORDS SUMMARY | 2025-02-03 16:12 | XMS_ITS | Clinical Summary ---
Author Organization [facility] Address [address] [place] [address] Care Team Providers Care Boots And Shoes Supervisor Name Role Phone Unassigned, Pcp Primary Care Provider Unavailabl e Source Comments Patient records contain information from all sites at [facility]. For routine questions regarding patient records, call [phone] during business hours, M-F 8:00 AM - 5:00 PM Central Time. Record requests for emergency care only can be directed to [phone] at any time.[facility] Allergies Active Allergy Reactions Criticality Noted Date [...] needed. 3 Active apixaban (Eliquis) 5 mg tabletIndication s:Atrial Fibrillation Paroxysmal (HCC) Take 1 tablet (5 mg total) by mouth 2 (two) times a day. 180 tablet 3 4 05/18/20 25 Active furosemide (Lasix) 20 mg tabletIndication s:Atheroscleroti c Heart Disease Of [place] Coronary Artery Without Angina Pectoris Take 1 tablet (20 mg total) by mouth daily as needed (leg swelling). States when legs are swollen 90 tablet 2 4 Active metoprolol succinate (Toprol XL) 25 mg 24 hr tabletIndication s:Atheroscleroti c Heart Disease Of [place] Coronary Artery Without Angina Pectoris Take 1 tablet (25 mg total) by mouth daily. 90 tablet 3 4 05/18/20 25 Active rosuvastatin (Crestor) 5 mg tabletIndication s:Dyslipidemia Take 1 tablet (5 mg total) by mouth daily. For elevated cholesterol 90 tablet 3 5 Active Active Problems Problem Noted Date Diagnosed Date Diverticulosis 05/18/2024 Overview (05/18/2024): [facility] 12/04/20 Colonoscopy: Extensive descending/sigmoid diverticulosis. Dyslipidemia 05/18/2024 Overview (05/18/2024): Rosuvastatin 5 mg started 11/2023 Osteopenia 05/18/2024 Overview (05/18/2024): osteopenia 2022 - [place] bhagat monitors [facility] 10/13/18 DEXA lowest T-score AP Spine -1.4. [...] (05/18/2024): dependant Atherosclerotic Heart Diseas e Of [place] Coronary Artery Without Angina Pectoris 12/31/2010 Overview (05/18/2024): - Stenting to first diagonal 12/28/2010 - 11/03/23 CCTA: 1. Approximate 70% stenosis of the ostial RCA. 2. Moderate in stent restenosis of the D1 stent distally . - Gastroesophageal Reflux Disease NOS 06/21/2010 Immunizations Immunization Administration Dates Next Due Td Preservative Free (TENIVAC, DECAVAC) 04/09/20 05 Tdap 02/15/2019 Social History Tobacco Use Types Packs/Day Years Used Date Smoking Tobacco: Never Passive Smoke Exposure: Never Smokeless Tobacco: Never Tobacco Cessation:Counseling Given: Not Answered Alcohol Use Standard Drinks/Week Comments Yes 3 (1 standard drink = 0.6 oz pur e alcohol) [facility] Utilities Answer Date Recorded In the past 12 months has e [employer], gas, oil, or water Qriket threatened to shut off services in your home? No 05/31/2024 Hunger Vital Sign Answer Date Recorded Within the past 12 months, y ou worried that your food would run out before you got the money to buy more. Never true 05/31/20 24 Within the past 12 months, t he [...] things needed for daily living? No 05/31/2024 Housing Stability Answer Date Recorded What is your living situation today? I have a st [address] place to live 05/31/2024 Comments No Sex and Gender Information Value Date Recorded Sex Assigned at Female 05/31/2024 7:25 PM RN TRAINING Legal Sex Female 12:20 PM CDT Gender Identity Female 05/31/2024 7:25 PM RN TRAINING Sexual Orientation Straight 05/31/2024 7: 25 PM RN TRAINING Last Filed Vital Signs Vital Sign Reading Time Taken Comments Blood Pressure 119/77 06/01/2024 10:54 AM RN TRAINING Pulse 69 06/01/2024 10:54 AM RN TRAINING Temperature 36.4 C (97.5 F) 06/01/2024 10:54 AM RN TRAINING Respiratory Rate 20 06/01/2024 10:5 4 AM RN TRAINING Oxygen Saturation - - Inhaled Oxygen Concentration - - Weight 74.3 kg (163 lb 12.8 oz) 024 10:54 AM RN TRAINING Height 150 cm (4' 11.06) 06/01/2024 10 :54 AM RN TRAINING Body Mass Index 33.02 06/01/2024 10:54 AM RN TRAINING Plan of Treatment Health Maintenance Due Date Last Done Comments COVID-19 Vaccine (#1) 11/17/1950 Pneumococcal vaccine (50+ years) (1 of 2 - PCV) 11/17/1962 Zoster Vaccines (1 of 2) 11/17/1993 RSV vaccine - (32-36 weeks) or 60+ years (1 - 1-dose 75+ series) 11/17/2018 Depression Screening (Annual PHQ-2) 06/16/2024 Fall Risk Screen (Annual) 06/16/2024 Influenza Vaccine (#1) 2025 Creatinine Level (Kidney Function Test) 05/20/2025 05/20/2024, 05/18/2024, 01/09/2024, Additional history exists Fasting Glucose for Diabetes Screening 05/20/2025 05/20/2024, 05/18/2024, 05/18/2024, Additional history exists Potassium Level 05/20/2025 05/20/2024, 08/2023, 01/09/2024, Additional history exists Sodium Level 05/20/2025 05/20/2024, 08/2023, 01/09/2024, Additional history exists Office Visit for Blood Pressure Check / Re-check 06/01/2025 06/01/2024 DTaP,Tdap,and Td Vaccines (2 - Td or Tdap) 02/15/2029 02/15/2019, 04/09/2005 IPV Vaccines Aged Out No longer eligi ble based on patient's age to complete this topic Procedures Procedure Name Priority Date/Time Associated Diagnosis Comments HEMOGLOBIN A1C, B Routine 05/18/2024 2:2 8 PM RN TRAINING PreDiabetes COMPREHENSIVE METABOLIC PANEL, S/P Routine 05/18/2024 2:28 PM RN TRAINING Atherosclerotic Heart Disease [place] Coronary Artery Without Angina Pectoris Hypertension Essential Primary from Last 3 Months or Most Recently Relevant to Health Maintenance Results * (ABNORMAL) Hemoglobin A1c (05/18/2024 2:28 PM RN TRAINING) Hemoglobin A1c, B 5.9(H) 4.2 - 5.6 % 05/18/2024 6:20 PM RN TRAINING OWAT Comment: Hemoglobin A1c values of 5.7-6.4 percent indicate an increased risk for developing diabetes mellitus. In diabetic patients, HbA1c goals should be discussed with healthcare provider. Blood (Blood, Venous) 05/18/2024 2:28 PM RN TRAINING 05/18/2024 5:51 PM RN TRAINING Mike Freeman M.D. LAB BLOOD ADD-O N Final Result [facility] [address] [place] [address], [place] OWAT [place] [facility] [address] [place] [address] * Comprehensive Metabolic Panel (05/18/2024 2:28 PM RN TRAINING) Potassium, P 3.9 3.6 - 5.2 mmol/L 05/18/2024 6:21 PM RN TRAINING OWAT Sodium, P 142 135 - 145 mmol/L 05/18/2024 6:21 PM RN TRAINING OWAT Chloride, P 103 98 - 107 mmol/L 05/18/2024 6:21 PM RN TRAINING OWAT Bicarbonate, P 29 22 - 29 mmol/L 05/18/2024 6:21 PM RN TRAINING OWAT Anion Gap, P 10 7 - 15 05/18/2024 6:21 PM RN TRAINING OWAT BUN (Blood Urea Nitrogen), P 13 6 - 21 mg/dL 05/18/2024 6:21 PM RN TRAINING OWAT Creatinine 0.77 0.59 - 1.04 mg/dL 05/18/2024 6:21 PM RN TRAINING OWAT Estimated GFR (eGFR) 78 >=60 mL/min/BS A 05/18/2024 6:21 PM RN TRAINING OWAT Comment: Estimated GFR calculated using the 2020 CKD_EPI creatinine equation. Calcium, Total, P 9.5 8.8 - 10.2 mg/dL 05/18/2024 6:21 PM RN TRAINING OWAT Glucose, P 109 70 - 140 mg/dL 05/18/2024 6:21 PM RN TRAINING OWAT Protein, Total, P 7.2 6.3 - 7.9 g/dL 05/18/2024 6:21 PM RN TRAINING OWAT Albumin, P 4.3 3.5 - 5.0 g/dL 05/18/2024 6:21 PM RN TRAINING OWAT Aspartate Aminotransferase (AST), P 19 8 - 43 U/L 05/18/2024 6:21 PM RN TRAINING OWAT Alkaline Phosphatase, P 83 35 - 104 U/L 05/18/2024 6:21 PM RN TRAINING OWAT Alanine Aminotransferase (ALT), P 16 7 - 45 U/L 05/18/2024 6:21 PM RN TRAINING OWAT Bilirubin, Total, P 0.2 0.0 - 1.2 mg/dL 05/18/2024 6:21 PM RN TRAINING OWAT Blood (Blood, Venous) 05/18/2024 2:28 PM RN TRAINING 05/18/2024 5:51 PM RN TRAINING us Mike Freeman M.D. LAB BLOOD ADD-O N Final Result [facility] [address] [place] [id number] [place] [address] OWAT [place] [address] [place] [address] from Last 3 Months or Most Recently Relevant to Health Maintenance Insurance ARE Care Teams Boots And Shoes Supervisor Relationship Specialty Start Date End Date Unassigned, Pcp PCP - General Family Medicine 05/18/24
--- OUTSIDE RECORDS SUMMARY | 2025-02-03 16:12 | XMS_ITS | Clinical Summary ---
Author Organization [facility] Address [address] [address] Phone Care Team Providers Care Divorce Attorney Name Role Phone Memo Matos MD Primary Care Provider [phone] Allergies Active Allergy Reactions Criticality Noted Date Comments Codeine Other Low 07/12/2021 Nausea/vomiting Morphine And Codeine GI intolerance 10/18/2015 Penicillins Hives 10/18/2015 Medications acetaminophen (Acetaminophen 8 Hour) 650 MG Tablet Extended Release Take 650 mg by mouth every six hours as needed. Limit acetaminophen to 4000 mg per day from all sources. Active anastrozole (Arimidex) 1 MG tablet Take 1 mg by mouth one time a day. Active ferrous sulfate EC 324 (65 Fe) MG tablet Take 324 mg by mouth every morning with breakfast. Take with food; do not crush. Active finasteride (Propecia) 1 MG tablet Take 1 mg by mouth one time a day. Do not crush. Active metoprolol succinate (Toprol-XL) 25 MG 24 hour extended-release tablet Take 25 mg by mouth one time a day. Do not crush or chew. Active Multiple Vitamin (MULTI-VITAMIN DAILY OR) Take 1 Tablet by mouth one time a day. Active nitroglycerin (Nitrostat) 0.[address] 0.4 mg under the tongue every five minutes as needed for Chest pain. Do not crush; maximum of 3 doses in 15 minutes. Active omeprazole (PriLOSEC OTC) 20 MG delayed-release tablet Take 20 mg by mouth one time a day as needed for Heartburn. Tablet should be swallowed whole; do not crush or chew. Take before meals. Active rosuvastatin (Crestor) 20 MG tablet Take 20 mg by mouth one time a day. Active ondansetron (Zofran ODT) 4 MG disintegrating tablet Take 1 Tablet by mouth every eight hours as needed for Nausea. 10 Tablet 1 07/18/19 22 Active HYDROcodone-acetam inophen ([place]) 5-325 MG oral tablet Take 1 Tablet by mouth every eight hours as needed for Pain . Limit acetaminophen to 4000 mg per day from all sources. 10 Tablet 07/15/19 23 Active Active Problems Problem Noted Date Diagnosed Date CAD S/P percutaneous coronary angioplasty 2015 Overview (10/18/2015): Stent placed in 12/27/2010. Last angio 2013. Surgical History Surgery Date Site/Laterality Comments CORONARY ANGIOPLASTY WITH STENT PLACEMENT 12/14/2010 - 01/13/2011 BREAST BIOPSY BREAST LUMPECTOMY MASTECTOMY COLONOSCOPY UPPER GASTROINTESTINAL ENDOSCOPY HYSTEROSCOPY BREAST ENHANCEMENT SURGERY 07/18/2021 N/A Procedure: Right second stage breast reconstruction with silicone implants, left reduction mammoplasty; Surgeon: Serafin Cuevas MD; Location: -[facility] OR Medical devices from this surgery are in the Medical Devices section. Medical History Medical History Date Comments Presence of stent in coronar y artery in patient with coronary artery disease 12/2010. Repeat angio 2013. Breast cancer (HCC) Esophageal dysphagia Paroxysmal supraventricular tachycardia (HCC) CAD (coronary artery disease) Anxiety GERD (gastroesophageal reflux disease) Obesity Dyslipidemia Impingement syndrome of left shoulder Tinnitus of both ears [place] (myocardial infarction) (HCC) Decreased hearing of both ears Episodic paroxysmal hemicrania, not intractable PONV (postoperative nausea and vomiting) Postmenopausal bleeding CMV (cytomegalovirus infection) (HCC) Cardiac dysrhythmia RICKEY (obstructive sleep apnea) Social History Tobacco Use Types Packs/Day Years Used Date Smoking Tobacco: Never Comments Unknown Sex and Gender Information Value Date Recorded Sex Assigned at Female 07/17/2021 8:33 AM PLATINUM AND PALLADIUM KETTLE TENDER Legal Sex Female 10:39 AM CDT Gender Identity Female 07/17/2021 8:33 AM PLATINUM AND PALLADIUM KETTLE TENDER Sexual Orientation Not on file Obstetrics History Last Filed Vital Signs Vital Sign Reading Time Taken Comments Blood Pressure 119/68 07/18/2022 2:49 PM PLATINUM AND PALLADIUM KETTLE TENDER Pulse 80 07/18/2022 2:49 PM PLATINUM AND PALLADIUM KETTLE TENDER Temperature 36.3 C (97.4 F) 07/18/2022 2:49 PM PLATINUM AND PALLADIUM KETTLE TENDER Respiratory Rate 18 07/18/2022 2:49 PM PLATINUM AND PALLADIUM KETTLE TENDER Oxygen Saturation 98% 07/18/2022 2:49 PM PLATINUM AND PALLADIUM KETTLE TENDER Inhaled Oxygen Concentration - - Weight 69.9 kg (154 lb) 07/18/2022 2:49 PM PLATINUM AND PALLADIUM KETTLE TENDER Height 152.4 cm (5') 07/18/2022 2:49 PM PLATINUM AND PALLADIUM KETTLE TENDER Body Mass Index 30.08 07/18/2022 2:49 PM PLATINUM AND PALLADIUM KETTLE TENDER Plan of Treatment Health Maintenance Due Date Last Done Comments MEDICARE AWV 1945 COVID-19 Vaccine (#1) 11/17/1948 PERTUSSIS (Standing Order) 11/17/1962 TETANUS (Standing Order) 11/17/1962 Pneumococcal Vaccine: 50+ yr s (Standing Order) (1 of 1 - PCV) 11/17/1993 Shingrix (Zoster recombinant ) vaccine (Standing Order) (1 of 2) 11/17/1993 DXA,FEMALES AGE 65 OR GREATER 11/17/2008 RSV Vaccination (60+ yrs) (Abrysvo/Arexvy) (1 - 1-dose 75+ series) 11/17/2018 HPV Vaccine (Standing Order) Aged Out No longer eligible based on patient's age to complete this topic Hepatitis B Vaccine (Standin g Order) Aged Out No longer eligible b ased on patient's age to complete this topic Medical Devices Implanted Type Area Diesel Service Technician Device Identifier Shelf Expiration Date Model / Serial / Lot Implant Breast Gel 500cc High Profile - [id number] Implanted:Qty: 1 on 07/18/2021 by Serafin Cuevas MD at [facility] N/A: Breast 09/28/2025 [id number] / [id number] / [id number] Insurance [facility] MEDICARE ADVANTAGE MEDICARE COST PART [employer] Advance Directives For more information, please contact: [phone] * Full Code (Latest Code Status on File) Date Activated Date Inactivated Comments 07/18/2021 1:50 PM 07/18/2021 7:19 PM * Full Code Date Activated Date Inactivated Comments 07/18/2021 7:50 AM 07/18/2021 1:50 PM Care Teams Divorce Attorney Relationship Specialty Start Date End Date Memo Matos MD PCP - General Family Medicine 06/13/21
--- NOTE | 2025-02-03 16:27 | CRLHL7_ITS ---
For Patients: As a result of the Century Cures Act, medical imaging exams and procedure reports are released immediately into your electronic medical record. You may view this report before your referring provider. If you have questions, please contact your health care provider. DATE: 02/03/2025 CLINICAL HISTORY: Patient with focal neurological deficits. TECHNIQUE: Standard helical CT image acquisition through the intracranial circulation following intravenous administration of contrast material with bolus tracking. 2D and 3D MIP images for post-processing were performed and interpreted on an independent workstation and 3D images were permanently archived. COMPARISON: CT same day. FINDINGS: There is no cerebral aneurysm or large vessel occlusion. There is mild intracranial atherosclerosis in the posterior cerebral arteries bilaterally, right middle cerebral artery and left anterior cerebral artery. The right internal carotid artery is normal. The right anterior cerebral artery and its branches are normal. The left internal carotid artery is normal. The left middle cerebral artery and its branches are normal. The anterior communicating artery is well visualized and appears normal. The right vertebral artery and PICA are normal. The left vertebral artery and PICA are normal. The left vertebral artery is dominant. The basilar artery is patent and appears normal. The visualized venous structures are patent. IMPRESSION: 1. No cerebral aneurysm or large vessel occlusion. 2. Mild intracranial atherosclerosis in the posterior cerebral arteries bilaterally, right middle cerebral artery and left anterior cerebral artery. Please note that all CT scans at this facility use dose modulation, iterative reconstruction, and/or weight-based dosing when appropriate to reduce radiation dose to as low as reasonably achievable. Dictated by Katina Peralta MD @ 02/03/2025 10:04:45 PM (Electronically Signed)
--- NOTE | 2025-02-03 16:27 | CRLHL7_ITS ---
For Patients: As a result of the Century Cures Act, medical imaging exams and procedure reports are released immediately into your electronic medical record. You may view this report before your referring provider. If you have questions, please contact your health care provider. DATE: 02/03/2025 CLINICAL HISTORY: Patient with focal neurological deficits. TECHNIQUE: Standard helical CT image acquisition of the neck up to the skull base after bolus intravenous contrast enhancement. 2D and 3D MIP images for post-processing were performed and interpreted on an independent workstation and 3D images were permanently archived. COMPARISON: CT same day. FINDINGS: The origins of the great vessels from the aortic arch are patent. The origin of the right vertebral artery is patent. The origin of the left vertebral artery is patent. The common carotid arteries are patent. There is no stenosis at the origin of the right internal carotid artery. There is no stenosis at the origin of the left internal carotid artery. The rest of the cervical segments of the internal carotid arteries are patent up to the skull base. The vertebral arteries are codominant. The cervical segments of the vertebral arteries are patent up to the skull base. The visualized lung apices are unremarkable. The thyroid gland is unremarkable. The soft tissues of the neck are unremarkable. There are degenerative changes in the cervical spine. IMPRESSION: Patent cervical vasculature. Please note that all CT scans at this facility use dose modulation, iterative reconstruction, and/or weight-based dosing when appropriate to reduce radiation dose to as low as reasonably achievable. Dictated by Katina Peralta MD @ 02/03/2025 10:02:11 PM (Electronically Signed)
--- NOTE | 2025-02-03 16:27 | CRLHL7_ITS ---
For Patients: As a result of the Century Cures Act, medical imaging exams and procedure reports are released immediately into your electronic medical record. You may view this report before your referring provider. If you have questions, please contact your health care provider. Indication: Difficulty speech, not following commands Technique: Volumetric multidetector CT images of the head were obtained without the administration of low osmolar intravenous contrast. Comparison: MRI brain July 22, 2024 Findings: There is no intra-axial or extra-axial fluid collection. There is no mass effect or midline shift. There is age-related cortical atrophy with mild sulcal widening and ex vacuo dilatation of the lateral ventricles. There are chronic small vessel disease changes in the subcortical and periventricular white matter without lost coburn-white differentiation. The orbits and their contents are grossly within normal limits. The bony calvarium is grossly intact. The paranasal sinuses are clear. The mastoid air cells are well aerated. Impression: 1. Age-related changes of the brain without acute intracranial abnormality. A negative head report was sent to Dr. Hilton at 4:56 p.m. February 03, [address] all CT scans at this facility use dose modulation, iterative reconstruction, and/or weight-based dosing when appropriate to reduce radiation dose to as low as reasonably achievable. Dictated by Kp Zepeda MD @ 02/03/2025 5:00:07 PM (Electronically Signed)
[2025-02-03 16:39] LABS: Hematocrit* 42.3 % (33.0-51.0); Hemoglobin* 13.8 gm/dL (12.0-16.0); Immature Granulocytes Abs Auto 0.00 K/uL (0.00-0.30); Immature Granulocytes Pct Auto 0.0 %; Lymphocytes Absolute Auto 1.47 K/uL (0.90-2.90); Mean Corpuscular HGB Conc 33 gm/dL (32-36); Mean Corpuscular Hemoglobin 31 pg (26-34); Mean Corpuscular Volume 96 fL (80-100); RDW Coefficient of Variation % 14.2 % (11.5-15.5); Red Blood Count* 4.39 m/uL (4.00-5.20); White Blood Count* 6.02 K/uL (4.50-11.00)
[2025-02-03 16:51] LABS: Chloride* 105 mmol/L (96-114); Potassium* 4.1 mmol/L (3.6-5.1); Sodium* 136 mmol/L (135-149)
[2025-02-03 16:53] LABS: INR 0.95 (0.91-1.10); Prothrombin Time 13.4 Seconds; Slide Review Reflex No
[2025-02-03 16:54] LABS: Anion Gap 4 mEq/L (7-15); Blood Urea Nitrogen* 15 mg/dL (7-30); Calcium* 9.5 mg/dL (8.4-10.6); Carbon Dioxide* 27 mmol/L (20-32); Creatinine* 0.7 mg/dL (0.5-1.5); Est. Creatinine Clearance* 34.90; Estimated Glomerular Filt Rate 87 ml/min; Glucose* 118 mg/dL (60-115)
--- NOTE | 2025-02-03 18:51 | ED_ITS ---
HPI - General Adult General Date Seen: 02/03/25 Chief complaint: Neuro Symptoms/Altered Deficit Stated complaint: Slurred speech, confusion Time Seen by Provider: 02/03/25 16:26 History of Present Illness HPI narrative: Patient is an 79-year-old here with her for evaluation of speech difficulties. She had onset about an hour prior to coming in of difficulty producing speech and seeming the understanding speech as well. Of note, she has had this happened several times before, the last time was in July and she was admitted to the hospital. She had a CT of the head, CT angiogram of the head and neck, MRI of the brain, all of which were unrevealing. She had an echo which was unremarkable. She has known atrial fibrillation and is maintained on Eliquis 5 mg b.i.d.. Her reports she takes this regularly. She has not had an episode since July. There is note it in her hospital discharge and that she should follow up with Neurology for evaluation for possible seizure, this apparently never happened. No other recent illness or injury. No reported muscular weakness or facial droop. Related Data Home Medications ?Medication ?Instructions ?Recorded ?Confirmed anastrozole 1 mg tablet 1 mg PO DAILY 05/20/2310/18 nitroglycerin 0.4 mg sublingual 0.4 mg sublingual Q5M PRN 05/20/23 10/18/24 tablet apixaban 5 mg tablet (Eliquis) 5 mg PO Q12H 08/27/23 0 10/18/24 furosemide 20 mg tablet 20 mg PO DAILY PRN 01/22/24 10/18/24 metoprolol succinate 25 mg 25 mg PO DAILY 07/22/2411/07 tablet,extended release 24 hr rosuvastatin 5 mg tablet 5 mg PO DAILY 07/22/2410/18 Allergies Allergy/AdvReac Type Severity Reaction Status Date / Time codeine Allergy Intermediate Vomiting Verified 02/03/25 16:47 Penicillins Allergy Mild Rash Verified 02/03/25 16:47 morphine Allergy Verified 02/03/25 16:47 Review of Systems Status of ROS: Reports: unobtainable due to medical condition [facility] Medical History Balance problems ?R26.89 - Other abnormalities of gait and mobility (ICD-10) GLORIA (generalized anxiety disorder) ?F41.1 - Generalized anxiety disorder (ICD-10) Obesity ?E66.9 - Obesity, unspecified (ICD-10) Lower extremity edema ?R60.0 - Localized edema (ICD-10) History of blood clots ?Z86.718 - Personal history of other venous thrombosis and embolism (ICD-10) 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 - Other specified nonscarring hair loss (ICD-10) Diverticulosis ?K57.90 - Diverticulosis of intestine, part unspecified, without perforation or abscess without bleeding (ICD-10) Osteopenia ?M85.80 - Other specified disorders of bone density and structure, unspecified site (ICD-10) RICKEY (obstructive sleep apnea) (2014) ?G47.33 - Obstructive sleep apnea (adult) (pediatric) (ICD-10) GERD (gastroesophageal reflux disease) ?K21.9 - Gastro-esophageal reflux disease without esophagitis (ICD-10) Esophageal dysphagia ?R13.19 - Other dysphagia (ICD-10) Episodic paroxysmal hemicrania, not intractable ?G44.039 - Episodic paroxysmal hemicrania, not intractable (ICD-10) Eczema ?L30.9 - Dermatitis, unspecified (ICD-10) Hearing loss of both ears ?H91.93 - Unspecified hearing loss, bilateral (ICD-10) Chronic right shoulder pain ?M25.511 - Pain in right shoulder (ICD-10) ?G89.29 - Other chronic pain (ICD-10) Adjustment disorder with depressed mood (~06/2021) ?F43.21 - Adjustment disorder with depressed mood (ICD-10) Dyslipidemia ?E78.5 - Hyperlipidemia, unspecified (ICD-10) Head trauma (08/2023) ?S09.90XA - Unspecified injury of head, initial encounter (ICD-10) Anticoagulated ?Z79.01 - [facility] (current) use of anticoagulants (ICD-10) CAD (coronary artery disease) ?I25.10 - Atherosclerotic heart disease of [place] coronary artery without angina pectoris (ICD-10) Atrial fibrillation ?I48.91 - Unspecified atrial fibrillation (ICD-10) Essential tremor ?G25.0 - Essential tremor (ICD-10) Surgical History History of coronary angiogram (01/09/24) ?Z98.890 - Other specified postprocedural states (ICD-10) History of cataract surgery (2021) ?Z98.49 - Cataract extraction status, unspecified eye (ICD-10) History of lumpectomy of both breasts ?Z98.890 - Other specified postprocedural states (ICD-10) History of coronary artery stent placement (2010) ?Z95.5 - Presence of coronary angioplasty implant and graft (ICD-10) History of right mastectomy (07/18/17) ?Z90.11 - Acquired absence of right breast and nipple (ICD-10) Family History Mother Breast cancer, Onset Age: 50 Diabetes Malignant GIST (gastrointestinal stromal tumor), Onset Age: 80 Father Diabetes Heart failure, Onset Age: 86 Brother Cancer with unknown primary site, Onset Age: 58 Social History Narrative: recently, 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, 2 adult children in [facility] Lifetime nonsmoker 5-6 glasses of wine a week No drug use Exercises 50 N 3 times a week What is your current living situation?: I presently have a place to live Problems where you live: no known problems Problems where you live details: NA In the past 12 months, utilities in danger of being shut off: no In past 12 months, lack of transportation kept you from medical appts, meetings, work, or getting things needed for daily living: no In the past 12 mos, have been you worried that your food would run out before you had money to buy more?: never true In the past 12 mos, the food you bought just didn't last and you didn't have money to buy more?: never true Highest level of school completed/degree received: Associate degree: occupational, technical, vocational program Smoking Status: Never smoker Do you use any of these nicotine containing products: None Second hand tobacco smoke exposure: No How often do you have a drink containing alcohol: 2-3 times a week Alcohol type: wine How many standard drinks containing alcohol do you have on a typical day: 1 or 2 How often do you have six or more drinks on one occasion: Never AUDIT-C Alcohol total score: 3 Non-prescribed substance use: denies use How often does anyone, including family, friends and others, physically hurt you : never How often does anyone, including family, friends and others, insult or talk down to you: never How often does anyone, including family, friends and others, threaten you with harm: never How often does anyone, including family, friends and others, scream or curse at you: never service: No Exam Narrative: Exam Narrative: Vital signs reviewed In general, alert, nontoxic elderly woman, sitting in a wheelchair. Head: Normocephalic, atraumatic. Eyes: Sclera clear. Pupils equal and reactive. ENT: Mucous membranes moist. Neck: Supple without adenopathy. Heart: Regular rate and rhythm without murmur. Lungs: Clear. No increased work of breathing, crackles or wheezes. Abdomen: Soft, nontender to palpation. Extremities: Well perfused, pulses intact. No significant edema. Neurologic: Alert, seems to be tuned in to everything I am saying to her. She did speak a little bit, very deliberately, enunciating each word very carefully. In general though on arrival she was not able to respond to my questions with anything that seemed relevant to the question I asked. She also did not seem to understand when I was asking her to move her arms and legs. Unable to assess motor function directly but her says that she was able to walk without difficulty. Skin: Warm, dry well perfused. Affect: Normal. Const: Vital Signs, click to edit/add: Vital Signs - 24 hr 02/03/25 16:15 02/03/25 17:02 02/03/25 17:12 Temperature 98.1 F Pulse Rate 62 51 L Pulse Rate [Pulse Oximeter] 64 Respiratory Rate 16 55 H 11 L Blood Pressure 153/96 H 148/91 H Blood Pressure [Ri ght Upper Arm] 146/74 H Pulse Oximetry 97 91 97 Oxygen Delivery Me thod Room Air 02/03/25 17:17 02/03/25 17:32 02/03/25 17:47 Temperature Pulse Rate 49 L 56 L 59 L Pulse Rate [Pulse Oximeter] Respiratory Rate 11 L 14 10 L Blood Pressure 150/83 H 155/86 H 155/98 H Blood Pressure [Ri ght Upper Arm] Pulse Oximetry 98 96 97 Oxygen Delivery Me thod 02/03/25 18:02 02/03/25 18:17 02/03/25 18:32 Temperature Pulse Rate 59 L 65 62 Pulse Rate [Pulse Oximeter] Respiratory Rate 17 8 L 12 Blood Pressure 164/102 H 159/101 H 160/94 H Blood Pressure [Ri ght Upper Arm] Pulse Oximetry 97 97 96 Oxygen Delivery Me thod Course Course ED Course: On arrival she was treated as a stroke code, was sent over for CT and CT angiogram. In the meantime I talked with Dr. Hilton, who was on-call for Neurology. Patient is anticoagulated on Eliquis and thus not a candidate for lytics. I reviewed the head CT which I did not see any acute findings, radiology read this as negative for anything acute. CT angiogram showed no significant findings. I talked with Dr. Hilton again, by that time patient was improving although not back to baseline. Dr. Hilton felt that if she was at baseline, it would be reasonable to let her go home given that she has had prior workup for this and is on maximum medical therapy with her Eliquis. I did check routine labs here as well and the are normal. After another hour so, she was again more improved although not back entirely to baseline according to the patient and her . Talked with Dr. Hilton again and she felt if she was not returning to baseline that it would be reasonable to admit her overnight and get any MRI. Did not feel that more emergent imaging or EEG was necessary nor did she recommend treatment for possible seizure. She thinks that is unlikely based on the fact that the patient is speaking in otherwise improving. I talked to the patient and her , they have spent quite a bit of time talking it over and have decided to discharge tonight. She feels like she is very close to being back to normal and I would agree with that. They would like to follow-up with neurology as an outpatient, I gave them the phone number for [facility], although apparently has a history of working at [employer] and so they may pursue that route as well. Regardless, neurology follow-up recommended. Also discussed she could see her primary doctor just to get an outpatient MRI done. Return any time for recurrent persistent symptoms. Vital Signs Vital signs: Initial Vital Signs Temperature 98.1 F 02/03/25 16:15 Temperature Source Temporal Artery Scan 02/03/25 16:15 Pulse Rate 64 02/03/25 16:15 Pulse Rhythm Regular 02/03/25 16:15 Respiratory Rate 16 02/03/25 16:15 Blood Pressure 146/74 H 02/03/25 16:15 Blood Pressure Mean 98 02/03/25 16:15 Blood Pressure Position Sitting 02/03/25 16:15 Pulse Oximetry 97 02/03/25 16:15 Oxygen Delivery Method Room Air 02/03/25 16:15 Vital Signs Temperature 98.1 F 02/03/25 16:15 Pulse Rate 64 02/03/25 16:15 Respiratory Rate 16 02/03/25 16:15 Blood Pressure 146/74 H 02/03/25 16:15 Pulse Oximetry 97 02/03/25 16:15 Oxygen Delivery Method Room Air 02/03/25 16:15 Temperature 98.1 F 02/03/25 16:15 Pulse Rate 62 02/03/25 18:32 Respiratory Rate 12 02/03/25 18:32 Blood Pressure 160/94 H 02/03/25 18:32 Pulse Oximetry 96 02/03/25 18:32 Oxygen Delivery Method Room Air 02/03/25 16:15 Medical Decision Making Lab Data Lab results reviewed: Yes I reviewed the patient's lab results Labs: Lab Results 02/03/25 Range/Units 16:30 WBC 6.02 (4.50-11.00) K/uL RBC 4.39 (4.00-5.20) m/uL Hgb 13.8 (12.0-16.0) gm/dL Hct 42.3 (33.0-51.0) % MCV 96 (80-100) fL MCH 31 (26-34) pg MCHC 33 (32-36) gm/dL RDW Coeff of Blaise 14.2 (11.5-15.5) % Plt Count 187 (140-440) K/uL Neut % (Auto) 64.5 (42.0-72.0) % Lymph % (Auto) 24.4 (20-44) % [place] % (Auto) 9.6 (0.0-11.0) % Eos % (Auto) 1.0 (0.0-7.0) % Baso % (Auto) 0.5 (0.0-3.0) % Neut # (Auto) 3.88 (1.7-7.0) K/uL Lymph # (Auto) 1.47 (0.90-2.90) K/uL [place] # (Auto) 0.60 (0.00-0.90) K/UL Eos # (Auto) 0.06 (0.00-0.50) K/uL Baso # (Auto) 0.03 (0.00-0.30) K/uL Abs Immat Gran (auto) 0.00 (0.00-0.30) K/uL Imm/Tot Granulo (auto) 0.0 % INR 0.95 (0.91-1.10) APTT 28 (23-33) Seconds Sodium 136 (135-149) mmol/L Potassium 4.1 (3.6-5.1) mmol/L Chloride 105 (96-114) mmol/L Carbon Dioxide 27 (20-32) mmol/L Anion Gap 4 L (7-15) mEq/L BUN 15 (7-30) mg/dL Creatinine 0.7 (0.5-1.5) mg/dL Estimated Creat Clear 34.90 Estimated GFR 87 ml/min Glucose 118 H (60-115) mg/dL Calcium 9.5 (8.4-10.6) mg/dL Imaging Data CT scan - head: Attestation: I have reviewed the pertinent imaging results. Radiologist's impression: Patient: ANASTACIA GORMAN Facility: [facility] Site . Site : 1945 Study: CT-Neck Angio Angio STROKE CODE 95CC ISOVUE 370-02/03/2025 4:41:17 PM Ordering Physician: Brianne Maza Preliminary Report: The thoracic aorta is nonaneurysmal. Patent common carotid arteries. No evidence of significant atherosclerotic plaque at the carotid bifurcations. Patent distal internal carotid arteries with marked tortuosity of the distal arteries. Patent bilateral vertebral arteries without evidence of high-grade narrowing or abrupt cutoff. Dictated by Kp Zepeda MD @ 02/03/2025 5:12:34 PM Read by: Kp Zepeda MD @02/03/2025 5:12:40 PM Patient: Anastacia Gorman MR#: [id number] : 1945 Acct:[id number] Loc: ED Service Date: 02/03/[address]: Ordering Physician: Shaunna Decker M.D. Date of Service: 02/03/25 Procedure(s): CT head/brain wo con Accession Number(s): [id number] cc: Shaunna Decker M.D.; Lisa Quinones M.D.~ For Patients: As a result of the Cures Act, medical imaging exams and procedure reports are released immediately into your electronic medical record. You may view this report before your referring provider. If you have questions, please contact your health care provider. Indication: Difficulty speech, not following commands Technique: Volumetric multidetector CT images of the head were obtained without the administration of low osmolar intravenous contrast. Comparison: MRI brain July 22, 2024 Findings: There is no intra-axial or extra-axial fluid collection. There is no mass effect or midline shift. There is age-related cortical atrophy with mild sulcal widening and ex vacuo dilatation of the lateral ventricles. There are chronic small vessel disease changes in the subcortical and periventricular white matter without lost coburn-white differentiation. The orbits and their contents are grossly within normal limits. The bony calvarium is grossly intact. The paranasal sinuses are clear. The mastoid air cells are well aerated. Impression: 1. Age-related changes of the brain without acute intracranial abnormality. A negative head report was sent to Dr. Hilton at 4:56 p.m. February 03, 20[address] note that all CT scans at this facility use dose modulation, iterative reconstruction, and/or weight-based dosing when appropriate to reduce radiation dose to as low as reasonably achievable. Dictated by Kp Zepeda MD @ 02/03/2025 5:00:07 PM Discharge Plan Discharge Clinical Impression: Spells of speech arrest Patient Disposition: Home, Self-Care Condition: Improved Additional Instructions: As discussed, we would recommend follow-up with Neurology. One good option is [facility], their phone number is . Please call tomorrow to schedule appointment. You can tell then you have had multiple episodes of speech difficulties, with an admission in July and an unremarkable head CT, CT angiogram of the head and neck, and MRI. Tonight, we did a CT of the head without contrast as well as a CT angiogram of the head and neck, which are again unremarkable. The neurologist on-call, Dr. Hilton, recommended that you be seen as an outpatient by Neurology to evaluate for possible seizure activity. Prescriptions: No Action anastrozole 1 mg tablet 1 mg PO DAILY nitroglycerin 0.4 mg tablet, sublingual 0.4 mg sublingual Q5M PRN Eliquis 5 mg tablet 5 mg PO Q12H metoprolol succinate 25 mg tablet extended release 24 hr 25 mg PO DAILY rosuvastatin 5 mg tablet 5 mg PO DAILY furosemide 20 mg tablet 20 mg PO DAILY PRN Follow Up/Referrals: Lisa Quinones MD [Primary Care Provider, Family Practice] Stand Alone Forms: [employer] Info Instructions
== END 2025-02-03 20:27 | disposition home or self-care (01) ==
PROVIDERS: Emergency Provider Emergency Medicine; PCP Family Medicine
DX: R47.89 Other speech disturbances (principal); I48.91 Unspecified atrial fibrillation; Z79.01 Long term (current) use of anticoagulants
CPT/HCPCS: 36415; 70450; 70496; 70498; 80048; 85025; 85610; 85730; 93005; 94761; 99284; 99285; Q9967

== ENCOUNTER 2025-04-24 14:05 | Outpatient (CLI) | payer MEDICARE, SELFPAY | END 2025-04-24 14:06 | disposition home or self-care (01) | LOC: NFLDREF 04-28 09:28 | PROVIDERS: Visit Provider Physician Assistant | DX: N30.01 Acute cystitis with hematuria (principal) | CPT/HCPCS: 87086 ==